=== PATIENT | female | born 1965 | race Caucasian/White ===

== ENCOUNTER 2024-01-20 14:10 | Outpatient (AMB) | payer MEDICARE, MEDICAID, SELFPAY ==
[2024-01-20 14:27] VITALS: BP 102/66; PULSE 83; RESP 19; TEMP 36.2
--- NOTE | 2024-01-20 14:27 | PD.RESCLINIC ---
Vital Signs 01/20/24 14:27 Weight 100.471 kg Weight Measurement Method Standing Scale BP 102/66 Blood Pressure Source Automatic Cuff Blood Pressure Location Left Upper Arm Position Sitting Respiration 19 Pulse 83 Pulse Source Monitor Temp 97.1 F Temp Source Oral Allergies/Meds Allergies & Medications Allergies No Known Allergies Allergy (Verified 01/20/24 14:28) Medication Reconciliation clotrimazole 1 % topical cream 1 applic topical BID #30 grams 11/27/23 [Rx Confirmed 01/20/24] fluconazole 200 mg tablet (Diflucan) 200 mg PO Q72H #3 tabs 11/27/23 [Rx Confirmed 01/20/24] hydrocodone 5 mg-acetaminophen 325 mg tablet 1 tab PO TID PRN pain #40 tabs 11/27/23 [Rx Confirmed 01/20/24] fluconazole 150 mg tablet 150 mg PO QDAY #2 tabs 01/20/24 [Rx] phentermine 7.5 mg-topiramate ER 46 mg capsule,ext.release 24hr mphase 1 cap PO QDAY weight loss 1 month #30 caps 01/20/24 [Rx] pregabalin 50 mg capsule 50 mg PO TID 1 month #90 caps 01/20/24 [Rx] MA Intake Visit Data Collection New Patient or Established: Established Patient (seen at [facility] within 3 years) Seen by Clinical Staff ONLY (RN/MA): No Pain Present Currently: Yes Pain Location: Generalized Pain scale:: 8 Pain Scale Used: Dunn-Aguilar/Numerical PCP or OBGYN visit in last 3 months: Yes Do You Feel Safe at Home: Yes Authorities Contacted: N/A Smoking Status Smoking Status: Never smoker Immunization / Flu Flu Vaccine in the Last 12 Months: Yes Flu Vaccine Exclusion Criteria: Already Received Past Medical History Past Medical History CARDIAC: Positive Hypercholesterolemia and Hypertension; Negative Congestive Heart Failure RESPIRATORY: Negative Chronic Obstructive Pulmonary Disease (COPD) GASTROINTESTINAL: Positive Gastroesophageal Reflux Disease GENITOURINARY: Negative Renal Disease ENDOCRINE: Positive Endocrine Disorders and Diabetes Mellitus Type 2; Negative Diabetes Mellitus Type 1 PSYCHO/SOCIAL: Positive Psychiatric Problems, Bipolar Disorder, Attention Deficit Hyperactivity Disorder and Post Traumatic Stress Disorder Surgical History SURGICAL: Positive Abdominal Surgery Social History SMOKING STATUS: Smoking status: Never smoker ALCOHOL: Alcohol Intake: Never Patient Portal Questionaires Social History Tobacco History Smoking Status: Never smoker Alcohol History Alcohol Intake: Never Domestic Abuse History Do You Feel Safe at Home: Yes Review of Systems Report any current symptoms Only answer those that you have currently: Past Medical History Past Medical History Have you ever been diagnosed with any of the following: Cardiology Problems Hypercholesterolemia: Yes Congestive Heart Failure: No Hypertension: Yes Respiratory Problems Chronic Obstructive Pulmonary Disease (COPD): No Stomache/Intestinal Problems Gastroesophageal Reflux Disease: Yes Genital/Urinary Problems Renal Disease: No Endocrine Problems Diabetes Mellitus Type 1: No Diabetes Mellitus Type 2: Yes Psychologic Problems Bipolar Disorder: Yes Attention Deficit Hyperactivity Disorder: Yes Post Traumatic Stress Disorder: Yes History of Present Illness HPI Narrative Interval History: Patient is a 57 year old female with a medical history of primary hypertension, 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 Follow up visit 01/20/2024 Today patient complains of cottage cheese discharge from her vagina as well as pruritus. Will give 1 dose of fluconazole and another dose in 1 week. She also complains of generalized pain as well as back pain resistant to opioid medication. Will start trial of pregabalin Patient complains of not being able to lose weight and thinks she may have OCD manage she has an oral fixation of having to always put something in her mouth. She asked for referral to bariatric surgery as well as a medication to help her lose weight. Will start her on phentermine?topimarate Assessment & Plan Diagnosis / Problem List (1) Vaginal yeast infection: Status: Chronic Assessment & Plan: Patient complains of pruritic rash in bilateral inguinal and vaginal areas. States has had diagnosis of yeast infection before that resolved with treatment. Also complains of foul odor. Still complains of cottage cheese discharge and pruritis in her vaginal area Plan: Plan: - 1 dose of Fluconazole 150mg po daily x 1 - Another dose in 1 week if symptoms persist (2) Lumbar back pain with radiculopathy affecting lower extremity: Status: Acute Assessment & Plan: She also complains of back pain as well as back pain resistant to opioid medication. Will start trial of pregabalin Plan: Plan : - Pregabalin 50 mg po TID - Will reassess in 1 month (3) Obesity (BMI 30-39.9): Status: Acute Assessment & Plan: Patient complains of not being able to lose weight and thinks she may have OCD manage she has an oral fixation of having to always put something in her mouth. She asked for referral to bariatric surgery as well as a medication to help her lose weight. Will start her on phentermine?topimarate Plan: Plan : - Will order trial of Phentermine-topimarate 7.5-46 mg ER . 1 cap po Qday Plan Plan of care discussed with Attending Dr. Barbie Gaxiola MD PGY 1 Additional Assessment Attending note: I, West Valentin MD, attest that I was physically present for the kim portions of the service and evaluated the patient with the resident and I reviewed and discussed the case with the resident and agree with the resident's findings and plans of care as documented above. Follow-up visit. Not seen in person in clinic for some time. Complaining of symptoms consistent with Rola vaginitis as well as intertrigo. We will treat with oral Diflucan and topical antifungal. Complaint of radicular back pain, has noted for some time. As there may be an element of diabetic neuropathy with this, we will trial pregabalin to see if benefit. Note made of weight gain of approximately 20+ pounds in the past year. BMI greater than 30. Patient requesting medication for weight loss. We will trial phentermine topiramate, but may be a good candidate for GLP-1 if can get it authorized, as she has previously had hemoglobin A1c of 7.0. Previously had markedly elevated triglycerides. Needs recheck of lipid panel at next visit. Note made of emergency room visits in October with transfer for psychiatric facility placement at that time. West Valentin MD Physician Billing Established Patient Established Patient: E/M Level 3-CPT 85131 Office Procedures [facility] Level of Care Nursing/Assessment Patient Status: Established Patient Nursing Assessment/Reassessment: Medication Reconciliation, Update PMH in EMR and Vital Signs Coordination of Care: Complex Care and Chronic Disease 1-5, Education Complex Pt/Fam and Staff clarify orders Established Patient Charge Established Patient Point Assignment: 85 Established Patient Point Charge: EP Level 3 (80-115)
== END 2024-01-20 15:01 | disposition home or self-care (01) ==
LOC: HODAHC 14:10
PROVIDERS: Supervising Provider Internal Medicine
DX: B37.31 Acute candidiasis of vulva and vagina (principal); M54.16 Radiculopathy, lumbar region; E66.9 Obesity, unspecified
CPT/HCPCS: 99213; G0463

== ENCOUNTER 2024-02-17 09:35 | Outpatient (AMB) | payer MEDICARE, MEDICAID, SELFPAY ==
--- NOTE | 2024-02-17 10:08 | PD.RESCLINIC ---
Vital Signs 02/17/24 10:09 Height 1.68 m Height Method Stated Weight 100.811 kg Weight Measurement Method Standing Scale BMI 35.9 BP 103/70 Blood Pressure Source Automatic Cuff Blood Pressure Location Left Upper Arm Position Sitting Respiration 18 Pulse 76 Pulse Source Monitor Temp 97.5 F Temp Source Oral Pulse Oximetry (%) 93 L Oxygen Delivery Method Room Air Allergies/Meds Allergies & Medications Allergies No Known Allergies Allergy (Verified 02/17/24 10:25) Medication Reconciliation bupropion HCl 150 mg tablet,12 hr sustained-release 150 mg PO QAM 02/17/24 [History Confirmed 02/17/24] citalopram 40 mg tablet 40 mg PO QDAY 02/17/24 [History Confirmed 02/17/24] clonazepam 2 mg tablet 2 mg PO QDAY 02/17/24 [History Confirmed 02/17/24] empagliflozin 25 mg tablet (Jardiance) 25 mg PO QDAY 02/17/24 [History Confirmed 02/17/24] ezetimibe 10 mg tablet 10 mg PO QDAY 02/17/24 [History Confirmed 02/17/24] fluconazole 150 mg tablet 150 mg PO QDAY #2 tabs 02/17/24 [Rx] gabapentin 800 mg tablet 800 mg PO TID #90 tabs 02/17/24 [Rx] hydrocodone 5 mg-acetaminophen 325 mg tablet 1 tab PO BID PRN pain #60 tabs 02/17/24 [Rx] czlaga-[id number]-vwqmftx 24,000-76,000-120,000 unit capsule,delayed rel (Creon) 1 cap PO TID 02/17/24 [History Confirmed 02/17/24] lisinopril 5 mg tablet 5 mg PO QDAY 02/17/24 [History Confirmed 02/17/24] metformin 1,000 mg tablet 1,000 mg PO BID 02/17/24 [History Confirmed 02/17/24] nystatin 100,000 unit/gram topical cream 1 applic topical QDAY #30 grams 02/17/24 [Rx] olanzapine 20 mg tablet 20 mg PO QPM 02/17/24 [History Confirmed 02/17/24] olanzapine 5 mg tablet 5 mg PO QHS 02/17/24 [History Confirmed 02/17/24] omeprazole 40 mg capsule,delayed release 40 mg PO QDAY 02/17/24 [History Confirmed 02/17/24] pantoprazole 40 mg granules delayed-release for susp in packet 40 mg PO QDAY 02/17/24 [History Confirmed 02/17/24] MA Intake Visit Data Collection New Patient or Established: Established Patient (seen at [facility] within 3 years) Seen by Clinical Staff ONLY (RN/MICHAEL): No Pain Present Currently: No Pain scale:: 0 Pain Scale Used: Dunn-Aguilar/Numerical Mortgage Loan Reviewer Required: No PCP or OBGYN visit in last 3 months: Yes Hx Now: No Do You Feel Safe at Home: Yes Authorities Contacted: N/A Smoking Status Smoking Status: Never smoker Immunization / Flu Flu Vaccine in the Last 12 Months: No Flu Vaccine Exclusion Criteria: No Exclusion Criteria Past Medical History Past Medical History CARDIAC: Positive Hypercholesterolemia and Hypertension; Negative Congestive Heart Failure RESPIRATORY: Negative Chronic Obstructive Pulmonary Disease (COPD) GASTROINTESTINAL: Positive Gastroesophageal Reflux Disease GENITOURINARY: Negative Renal Disease ENDOCRINE: Positive Endocrine Disorders and Diabetes Mellitus Type 2; Negative Diabetes Mellitus Type 1 PSYCHO/SOCIAL: Positive Psychiatric Problems, Bipolar Disorder, Attention Deficit Hyperactivity Disorder and Post Traumatic Stress Disorder Surgical History SURGICAL: Positive Abdominal Surgery Social History SMOKING STATUS: Smoking status: Never smoker ALCOHOL: Alcohol Intake: Never Patient Portal Questionaires Social History Tobacco History Smoking Status: Never smoker Alcohol History Alcohol Intake: Never Domestic Abuse History Do You Feel Safe at Home: Yes Review of Systems Report any current symptoms Only answer those that you have currently: Past Medical History Past Medical History Have you ever been diagnosed with any of the following: Cardiology Problems Hypercholesterolemia: Yes Congestive Heart Failure: No Hypertension: Yes Respiratory Problems Chronic Obstructive Pulmonary Disease (COPD): No Stomache/Intestinal Problems Gastroesophageal Reflux Disease: Yes Genital/Urinary Problems Renal Disease: No Endocrine Problems Diabetes Mellitus Type 1: No Diabetes Mellitus Type 2: Yes Psychologic Problems Bipolar Disorder: Yes Attention Deficit Hyperactivity Disorder: Yes Post Traumatic Stress Disorder: Yes History of Present Illness HPI Narrative Interval History: Patient is a 57 year old female with a medical history of primary hypertension, 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 02/17/24: Patient seen and examined in outpatient clinic, along with her daughter. Patient complains of recurrent fungal rash, diflucan and nystatin cream ordered. Refill for Gabapentin ordered. Patient stated that her pain was not well-controlled with 800mg TID, added PRN [place] for severe pain. Patient requested phentermine for weight loss. However, due to severe side effects and patients medical history, this was not deemed appropriate. This was thoroughly discussed with patient. Patient taking Ozempic prescribed by american sign language interpreter, currently on 1mg weekly. Advised patient to follow up with american sign language interpreter, will reassess weight issues after ozempic increased. Ordered lipid panel, thyroid, CBC, CMP, and A1c, encouraged patient to complete before next visit. Review of Systems Review of Systems Systems Reviewed: All systems reviewed, normal except as documented Objective/Exam Narrative Physical exam: PE: Gen: Well-developed and well-nourished. Obese. HEENT: NCAT, PERRLA, EOMI, MMM, anicteric conjunctivae. CVS: normal S1 and S2. RRR. No M/R/G. Resp: CTA B/L. No rhonchi, rales, crackles or wheezing. Abd: soft, non-tender, non-distended. BS+ in all 4 quadrants. MSK: Good ROM in BUE & BLE. No edema or rash. Neuro: CN II-XII grossly intact. Strength 5/5 in BUE & BLE. Alert and oriented x3. Psych: appropriate mood and affect. Assessment & Plan Diagnosis / Problem List (1) Diabetes mellitus with neuropathy: Status: Chronic Qualifiers: Diabetes mellitus chcf insulin use: unspecified chcf insulin use status Diabetes mellitus type: type 2 Qualified Code(s): E11.40 - Type 2 diabetes mellitus with diabetic neuropathy, unspecified Assessment & Plan: Present for decades per patient, well controlled Previously on long acting insulin 22U QD & Novolin-N 8-9U TID Complicated by peripheral neuropathy and nephropathy 10/16/22 A1C 7.0% 04/02/23 A1C 7.8% Currently taking Ozempic prescribed by american sign language interpreter. 1mg weekly. Plan: Diabetic diet Encouraged to keep BS log and bring to next visit Obtain A1c labs prior to next visit Follow up with american sign language interpreter. (2) Vaginal yeast infection: Status: Chronic Assessment & Plan: Patient complains of pruritic rash in bilateral inguinal and vaginal areas. States has had diagnosis of yeast infection before that resolved with treatment. Also complains of foul odor. Still complains of cottage cheese discharge and pruritis in her vaginal area. Says it resolved after last visit but recurred. Plan: Plan: - 1 dose of Fluconazole 150mg po daily x 1 - Another dose in 1 week if symptoms persist -Nystatin cream (3) Lumbar back pain with radiculopathy affecting lower extremity: Status: Acute Assessment & Plan: She also complains of back pain resistent to treatment. Currently taking Gabapentin, pain not well controlled. Plan: Gabapentin 800mg TID. [place] 5 BID PRN no more than two pill per day for breakthrough pain. (4) Obesity (BMI 30-39.9): Status: Acute Assessment & Plan: Patient complains of not being able to lose weight and thinks she may have OCD manage she has an oral fixation of having to always put something in her mouth. Qsymia did not provide any improvement. Currently on Ozempic 1mg weekly. Plan: Encourage patient to follow up with american sign language interpreter for management of ozempic. Office Procedures [facility] Level of Care Nursing/Assessment Patient Status: Established Patient Nursing Assessment/Reassessment: Medication Reconciliation, Update PMH in EMR and Vital Signs Coordination of Care: Complex Care/Chronic Disease 5 or more, Education Complex Pt/Fam, Consent,records obtained, informed consent, Lab and Imaging orders, Ref for ancillary service and Staff clarify orders Established Patient Charge Established Patient Point Assignment: 135 Established Patient Point Charge: Level 4 (120-155)
[2024-02-17 10:09] VITALS: BP 103/70; PULSE 76; RESP 18; TEMP 36.4; O2SAT 93; BMI 35.9
== END 2024-02-17 11:41 | disposition home or self-care (01) ==
LOC: HODAHC 09:35
PROVIDERS: Supervising Provider Internal Medicine; Visit Provider Internal Medicine
DX: E11.40 Type 2 diabetes mellitus with diabetic neuropathy, unspecified (principal); B37.31 Acute candidiasis of vulva and vagina; M54.16 Radiculopathy, lumbar region; E66.9 Obesity, unspecified; Z68.35 Body mass index [BMI] 35.0-35.9, adult; Z79.4 Long term (current) use of insulin; Z79.85 Long-term (current) use of injectable non-insulin antidiabetic drugs
CPT/HCPCS: 99214; G0463

== ENCOUNTER 2024-02-24 10:25 | Outpatient (AMB) | payer MEDICARE, MEDICAID, SELFPAY ==
[2024-02-24 10:27] VITALS: BP 117/78; PULSE 78; RESP 18; TEMP 36.6; O2SAT 91; BMI 35.8
--- NOTE | 2024-02-24 10:27 | PD.RESCLINIC ---
Vital Signs 02/24/24 10:27 Height 1.68 m Height Method Stated Weight 101.151 kg Weight Measurement Method Standing Scale BMI 35.8 BP 117/78 Blood Pressure Source Automatic Cuff Blood Pressure Location Left Upper Arm Position Sitting Respiration 18 Pulse 78 Pulse Source Monitor Temp 97.8 F Temp Source Oral Pulse Oximetry (%) 91 L Oxygen Delivery Method Room Air Allergies/Meds Allergies & Medications Allergies No Known Allergies Allergy (Verified 02/24/24 10:50) Medication Reconciliation bupropion HCl 150 mg tablet,12 hr sustained-release 150 mg PO QAM 02/17/24 [History Confirmed 02/24/24] citalopram 40 mg tablet 40 mg PO QDAY 02/17/24 [History Confirmed 02/24/24] empagliflozin 25 mg tablet (Jardiance) 25 mg PO QDAY 02/17/24 [History Confirmed 02/24/24] ezetimibe 10 mg tablet 10 mg PO QDAY 02/17/24 [History Confirmed 02/24/24] fluconazole 150 mg tablet 150 mg PO QDAY #2 tabs 02/17/24 [Rx Confirmed 02/24/24] hydrocodone 5 mg-acetaminophen 325 mg tablet 1 tab PO BID PRN pain #60 tabs 02/17/24 [Rx Confirmed 02/24/24] vfrukc-vkvtwcpx-hxuclfw 24,000-76,000-120,000 unit capsule,delayed rel (Creon) 1 cap PO TID 02/17/24 [History Confirmed 02/24/24] lisinopril 5 mg tablet 5 mg PO QDAY 02/17/24 [History Confirmed 02/24/24] metformin 1,000 mg tablet 1,000 mg PO BID 02/17/24 [History Confirmed 02/24/24] nystatin 100,000 unit/gram topical cream 1 applic topical QDAY #30 grams 02/17/24 [Rx Confirmed 02/24/24] olanzapine 20 mg tablet 20 mg PO QPM 02/17/24 [History Confirmed 02/24/24] olanzapine 5 mg tablet 5 mg PO QHS 02/17/24 [History Confirmed 02/24/24] omeprazole 40 mg capsule,delayed release 40 mg PO QDAY 02/17/24 [History Confirmed 02/24/24] pantoprazole 40 mg granules delayed-release for susp in packet 40 mg PO QDAY 02/17/24 [History Confirmed 02/24/24] clonazepam 2 mg tablet 2 mg PO QDAY 1 month #30 tabs 02/24/24 [Rx] gabapentin 800 mg tablet 1,600 mg (2 x 800 mg) PO BID #90 tabs 02/24/24 [Rx] MICHAEL Intake Visit Data Collection New Patient or Established: Established Patient (seen at [facility] within 3 years) Seen by Clinical Staff ONLY (RN/MA): No Pain Present Currently: No Pain scale:: 0 Pain Scale Used: Dunn-Aguilar/Numerical Title Lawyer Required: No PCP or OBGYN visit in last 3 months: Yes Hx Now: No Do You Feel Safe at Home: Yes Authorities Contacted: N/A Smoking Status Smoking Status: Never smoker Immunization / Flu Flu Vaccine in the Last 12 Months: No Flu Vaccine Exclusion Criteria: No Exclusion Criteria Past Medical History Past Medical History CARDIAC: Positive Hypercholesterolemia and Hypertension; Negative Congestive Heart Failure RESPIRATORY: Negative Chronic Obstructive Pulmonary Disease (COPD) GASTROINTESTINAL: Positive Gastroesophageal Reflux Disease GENITOURINARY: Negative Renal Disease ENDOCRINE: Positive Endocrine Disorders and Diabetes Mellitus Type 2; Negative Diabetes Mellitus Type 1 PSYCHO/SOCIAL: Positive Psychiatric Problems, Bipolar Disorder, Attention Deficit Hyperactivity Disorder and Post Traumatic Stress Disorder Surgical History SURGICAL: Positive Abdominal Surgery Social History SMOKING STATUS: Smoking status: Never smoker ALCOHOL: Alcohol Intake: Never Patient Portal Questionaires Social History Tobacco History Smoking Status: Never smoker Alcohol History Alcohol Intake: Never Domestic Abuse History Do You Feel Safe at Home: Yes Review of Systems Report any current symptoms Only answer those that you have currently: Past Medical History Past Medical History Have you ever been diagnosed with any of the following: Cardiology Problems Hypercholesterolemia: Yes Congestive Heart Failure: No Hypertension: Yes Respiratory Problems Chronic Obstructive Pulmonary Disease (COPD): No Stomache/Intestinal Problems Gastroesophageal Reflux Disease: Yes Genital/Urinary Problems Renal Disease: No Endocrine Problems Diabetes Mellitus Type 1: No Diabetes Mellitus Type 2: Yes Psychologic Problems Bipolar Disorder: Yes Attention Deficit Hyperactivity Disorder: Yes Post Traumatic Stress Disorder: Yes History of Present Illness HPI Narrative Interval History: Patient is a 57 year old female with a medical history of primary hypertension, 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 02/24/2024: Patient seen and examined in outpatient clinic, along with and daughter. Patient requesting refill on gabapentin, clonazepam. No other specific complaints at this time. Refilled patient's gabapentin. Refill clonazepam for 1 month, informed patient that she needs to contact [facility] mental health services for psych eval and to establish care for future prescriptions. Review of Systems Review of Systems Systems Reviewed: All systems reviewed, normal except as documented Objective/Exam Narrative Physical exam: PE: Gen: Well-developed and well-nourished. Obese. HEENT: NCAT, PERRLA, EOMI, MMM, anicteric conjunctivae. CVS: normal S1 and S2. RRR. No M/R/G. Resp: CTA B/L. No rhonchi, rales, crackles or wheezing. Abd: soft, non-tender, non-distended. BS+ in all 4 quadrants. MSK: Good ROM in BUE & BLE. No edema or rash. Neuro: CN II-XII grossly intact. Strength 5/5 in BUE & BLE. Alert and oriented x3. Psych: appropriate mood and affect. Assessment & Plan Diagnosis / Problem List (1) Diabetes mellitus with neuropathy: Status: Chronic Qualifiers: Diabetes mellitus type: type 2 Diabetes mellitus intermediate insulin use: unspecified long term care phlebotomist insulin use status Qualified Code(s): E11.40 - Type 2 diabetes mellitus with diabetic neuropathy, unspecified Assessment & Plan: Present for decades per patient, well controlled Previously on long acting insulin 22U QD & Novolin-N 8-9U TID Complicated by peripheral neuropathy and nephropathy 10/16/22 A1C 7.0% 04/02/23 A1C 7.8% Currently taking Ozempic prescribed by environmental marketing representative. 1mg weekly. Plan: Diabetic diet Encouraged to keep BS log and bring to next visit Obtain A1c labs prior to next visit Follow up with environmental marketing representative. (2) Anxiety: Status: Acute Assessment & Plan: Patient has history of anxiety, takes outpatient clonazepam 2 mg at bedtime. Reporting low medications. Has not reestablished care with psychiatrist since returning to this area. Plan: Refilled patient's clonazepam for 1 month only. Have patient follow-up with [facility] mental services for further care. (3) Lumbar back pain with radiculopathy affecting lower extremity: Status: Acute Assessment & Plan: She also complains of back pain resistant to treatment. Currently taking Gabapentin, states pain is somewhat well-controlled with 2 pills. Plan: Gabapentin 800mg, 2 pills twice daily. [place] 5 BID PRN no more than two pill per day for breakthrough pain. (4) Obesity (BMI 30-39.9): Status: Acute Assessment & Plan: Patient complains of not being able to lose weight and thinks she may have OCD manage she has an oral fixation of having to always put something in her mouth. Qsymia did not provide any improvement. Currently on Ozempic 1mg weekly. Plan: Encourage patient to follow up with environmental marketing representative for management of ozempic. Discontinue Qsymia. Office Procedures [facility] Level of Care Nursing/Assessment Patient Status: Established Patient Nursing Assessment/Reassessment: Medication Reconciliation, Update PMH in EMR and Vital Signs Coordination of Care: Complex Care/Chronic Disease 5 or more, Education Complex Pt/Fam, Consent,records obtained, informed consent, Ref for ancillary service and Staff clarify orders Established Patient Charge Established Patient Point Assignment: 120 Established Patient Point Charge: EP Level 4 (120-155)
== END 2024-02-24 11:30 | disposition home or self-care (01) ==
LOC: HODAHC 10:25
PROVIDERS: Supervising Provider Internal Medicine
DX: Z76.0 Encounter for issue of repeat prescription (principal); E11.42 Type 2 diabetes mellitus with diabetic polyneuropathy; Z79.4 Long term (current) use of insulin; F41.9 Anxiety disorder, unspecified; M54.16 Radiculopathy, lumbar region; E66.9 Obesity, unspecified; Z68.35 Body mass index [BMI] 35.0-35.9, adult
CPT/HCPCS: 99213; 99214; G0463

== ENCOUNTER 2024-04-02 13:31 | Outpatient (AMB) | payer MEDICARE, MEDICAID, SELFPAY ==
--- NOTE | 2024-04-02 13:59 | PD.RESCLINIC ---
Vital Signs 04/02/24 14:00 Height 1.68 m Height Method Stated Weight 103.192 kg Weight Measurement Method Standing Scale BMI 36.6 BP 111/75 Blood Pressure Source Automatic Cuff Blood Pressure Location Left Upper Arm Position Sitting Respiration 16 Pulse 83 Pulse Source Monitor Temp 97.5 F Temp Source Oral Pulse Oximetry (%) 96 Oxygen Delivery Method Room Air Allergies/Meds Allergies & Medications Allergies No Known Allergies Allergy (Verified 04/09/24 08:37) Medication Reconciliation bupropion HCl 150 mg tablet,12 hr sustained-release 150 mg PO QAM 02/17/24 [History Confirmed 04/09/24] citalopram 40 mg tablet 40 mg PO QDAY 02/17/24 [History Confirmed 04/09/24] empagliflozin 25 mg tablet (Jardiance) 25 mg PO QDAY 02/17/24 [History Confirmed 04/09/24] ezetimibe 10 mg tablet 10 mg PO QDAY 02/17/24 [History Confirmed 04/09/24] fluconazole 150 mg tablet 150 mg PO QDAY #2 tabs 02/17/24 [Rx Confirmed 04/09/24] hydrocodone 5 mg-acetaminophen 325 mg tablet 1 tab PO BID PRN pain #60 tabs 02/17/24 [Rx Confirmed 04/09/24] dxhfak-cigftjxi-qqbzglh 24,000-76,000-120,000 unit capsule,delayed rel (Creon) 1 cap PO TID 02/17/24 [History Confirmed 04/09/24] lisinopril 5 mg tablet 5 mg PO QDAY 02/17/24 [History Confirmed 04/09/24] metformin 1,000 mg tablet 1,000 mg PO BID 02/17/24 [History Confirmed 04/09/24] nystatin 100,000 unit/gram topical cream 1 applic topical QDAY #30 grams 02/17/24 [Rx Confirmed 04/09/24] olanzapine 20 mg tablet 20 mg PO QPM 02/17/24 [History Confirmed 04/09/24] olanzapine 5 mg tablet 5 mg PO QHS 02/17/24 [History Confirmed 04/09/24] omeprazole 40 mg capsule,delayed release 40 mg PO QDAY 02/17/24 [History Confirmed 04/09/24] pantoprazole 40 mg granules delayed-release for susp in packet 40 mg PO QDAY 02/17/24 [History Confirmed 04/09/24] gabapentin 800 mg tablet 1,600 mg (2 x 800 mg) PO BID #90 tabs 02/24/24 [Rx Confirmed 04/09/24] clonazepam 2 mg tablet 2 mg PO QDAY 1 month #30 tabs 04/02/24 [Rx Confirmed 04/09/24] Novolin N FlexPen 100 unit/mL (3 mL) subcutaneous insulin pen (insulin NPH isoph U-100 human) 32 unit (0.32 mL) subcut QID #45 mL 04/08/24 [Rx Confirmed 04/09/24] fluconazole 150 mg tablet 150 mg PO QDAY #2 tabs 04/08/24 [Rx Confirmed 04/09/24] nystatin 100,000 unit/gram topical ointment 1 applic topical QDAY 15 days #30 grams 04/08/24 [Rx Confirmed 04/09/24] semaglutide 2 mg/dose (8 mg/3 mL) subcutaneous pen injector (Ozempic) 2 mg (0.75 mL) subcut QWEEK #3 mL 04/08/24 [Rx Confirmed 04/09/24] MA Intake Visit Data Collection New Patient or Established: Established Patient (seen at [facility] within 3 years) Seen by Clinical Staff ONLY (RN/MA): No Pain Present Currently: No Pain scale:: 0 Pain Scale Used: Dunn-Aguilar/Numerical Batch Roller Operator Required: No PCP or OBGYN visit in last 3 months: Yes Hx Now: No Do You Feel Safe at Home: Yes Authorities Contacted: N/A Smoking Status Smoking Status: Never smoker Immunization / Flu Flu Vaccine in the Last 12 Months: No Flu Vaccine Exclusion Criteria: No Exclusion Criteria Past Medical History Past Medical History CARDIAC: Positive Hypercholesterolemia and Hypertension; Negative Congestive Heart Failure RESPIRATORY: Negative Chronic Obstructive Pulmonary Disease (COPD) GASTROINTESTINAL: Positive Gastroesophageal Reflux Disease GENITOURINARY: Negative Renal Disease ENDOCRINE: Positive Endocrine Disorders and Diabetes Mellitus Type 2; Negative Diabetes Mellitus Type 1 PSYCHO/SOCIAL: Positive Psychiatric Problems, Bipolar Disorder, Attention Deficit Hyperactivity Disorder and Post Traumatic Stress Disorder Surgical History SURGICAL: Positive Abdominal Surgery Social History SMOKING STATUS: Smoking status: Never smoker ALCOHOL: Alcohol Intake: Never Patient Portal Questionaires Social History Tobacco History Smoking Status: Never smoker Alcohol History Alcohol Intake: Never Domestic Abuse History Do You Feel Safe at Home: Yes Review of Systems Report any current symptoms Only answer those that you have currently: Past Medical History Past Medical History Have you ever been diagnosed with any of the following: Cardiology Problems Hypercholesterolemia: Yes Congestive Heart Failure: No Hypertension: Yes Respiratory Problems Chronic Obstructive Pulmonary Disease (COPD): No Stomache/Intestinal Problems Gastroesophageal Reflux Disease: Yes Genital/Urinary Problems Renal Disease: No Endocrine Problems Diabetes Mellitus Type 1: No Diabetes Mellitus Type 2: Yes Psychologic Problems Bipolar Disorder: Yes Attention Deficit Hyperactivity Disorder: Yes Post Traumatic Stress Disorder: Yes History of Present Illness HPI Narrative 59 year old female with a past medical history of hypertension, 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 Patient refers this is a recurrent issue with her where she gets cadidiasis under panus and in her groin, it responds well to nistatin ointment, she has also been experiencing some whitish vaginal discarge and pruritus. Patient also would like clonazepam refill, that she takes for anxiety disorder with panic attacks. Objective/Exam Narrative Physical exam: GENERAL: Awake, alert and oriented. No acute distress. HEENT: Normocephalic, atraumatic and nontender.? Pupils are equal and reactive to light and accommodation.? NECK: Supple without adenopathy. Traquea midline. Nontender, carotid pulse 2+ bilaterally without bruits, no JVD.? CHEST: Heart rate and rythm normal, no murmurs, gallops auscultated. S1 & 2 normal insensity. Nontender on palpation, no deformity and no crepitus. LUNGS: Lung sounds are clear.? No wheezing, rales or ronchi.? No intercostal subcostal retraction. Room air ABDOMEN: Soft,symmetric , nontender, no guarding or rebound tenderness. No abnormal masses palpated.? No pulsatile masses or bruits.? Bowel sounds are normoactive in all 4 quadrants. EXTREMITIES: Nontender.? No pitting edema.? No cyanosis.? Patient is able to move all 4 extremities. SKIN: underpanus candidiasis, bilateral groin candidiasis. NEURO:? Cranial nerves intact.? There is no focalization.? GCS is 15. 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 Patient refers this is a recurrent issue with her where she gets cadidiasis under panus and in her groin, it responds well to nistatin ointment, she has also been experiencing some whitish vaginal discarge and pruritus. Patient also would like clonazepam refill, that she takes for anxiety disorder with panic attacks. #Vaginal yeast infection -Clotrimazole ovules #Under panus candidiasis -Nistatin ointment #Anxiety, PTSD, panic attacks -clonazepam refilled Patient's care discussed with attending physician, Dr Barbie Harrison MD PGY3 Additional Assessment Internal Medicine Attending Note: Case discussed with and agree with note and management plan of Resident Physician as per Resident's Note above. Issues of concern for present visit are as follows: Acute visit. Complaining of Rola intertrigo. Treat with nystatin. Patient also with symptoms of vaginitis, we will treat with clotrimazole. Usual clonazepam refilled, history of anxiety/PTSD/panic attacks. Previously following with psychiatrist, needs follow-up. [place] MD Physician Billing Established Patient Established Patient: E/M Level 3-CPT 81239 Office Procedures [facility] Level of Care Nursing/Assessment Patient Status: Established Patient Nursing Assessment/Reassessment: Medication Reconciliation, Update PMH in EMR and Vital Signs Coordination of Care: Complex Care and Chronic Disease 1-5, Consent,records obtained, informed consent, Education Simp Pt/Fam, Lab and Imaging orders and Staff clarify orders Established Patient Charge Established Patient Point Assignment: 100 Established Patient Point Charge: Level 3 (80-115)
[2024-04-02 14:00] VITALS: BP 111/75; PULSE 83; RESP 16; TEMP 36.4; O2SAT 96; BMI 36.6
== END 2024-04-02 14:46 | disposition home or self-care (01) ==
LOC: HODAHC 13:31
PROVIDERS: Supervising Provider Internal Medicine; Visit Provider Student in an Organized Health Care Education/Training Program
DX: B37.31 Acute candidiasis of vulva and vagina (principal); F41.0 Panic disorder [episodic paroxysmal anxiety]; E11.42 Type 2 diabetes mellitus with diabetic polyneuropathy; Z79.4 Long term (current) use of insulin; F43.10 Post-traumatic stress disorder, unspecified; F31.9 Bipolar disorder, unspecified
CPT/HCPCS: 99213; G0463

== ENCOUNTER 2024-04-08 10:09 | Outpatient (AMB) | payer MEDICARE, MEDICAID, SELFPAY ==
[2024-04-08 08:35] VITALS: BP 94/64; PULSE 82; RESP 16; TEMP 36.2; O2SAT 97; BMI 36.6
--- NOTE | 2024-04-08 10:34 | PD.RESCLINIC ---
Vital Signs 04/08/24 08:35 Height 1.68 m Height Method Stated Weight 103.192 kg Weight Measurement Method Standing Scale BMI 36.6 BP 94/64 Blood Pressure Source Automatic Cuff Blood Pressure Location Left Upper Arm Position Sitting Respiration 16 Pulse 82 Pulse Source Monitor Temp 97.2 F Temp Source Temporal Artery Scan Pulse Oximetry (%) 97 Oxygen Delivery Method Room Air Allergies/Meds Allergies & Medications Allergies No Known Allergies Allergy (Verified 04/09/24 08:37) Medication Reconciliation bupropion HCl 150 mg tablet,12 hr sustained-release 150 mg PO QAM 02/17/24 [History Confirmed 04/09/24] citalopram 40 mg tablet 40 mg PO QDAY 02/17/24 [History Confirmed 04/09/24] empagliflozin 25 mg tablet (Jardiance) 25 mg PO QDAY 02/17/24 [History Confirmed 04/09/24] ezetimibe 10 mg tablet 10 mg PO QDAY 02/17/24 [History Confirmed 04/09/24] fluconazole 150 mg tablet 150 mg PO QDAY #2 tabs 02/17/24 [Rx Confirmed 04/09/24] hydrocodone 5 mg-acetaminophen 325 mg tablet 1 tab PO BID PRN pain #60 tabs 02/17/24 [Rx Confirmed 04/09/24] toumdw-hsezuptz-esfuhtn 24,000-76,000-120,000 unit capsule,delayed rel (Creon) 1 cap PO TID 02/17/24 [History Confirmed 04/09/24] lisinopril 5 mg tablet 5 mg PO QDAY 02/17/24 [History Confirmed 04/09/24] metformin 1,000 mg tablet 1,000 mg PO BID 02/17/24 [History Confirmed 04/09/24] nystatin 100,000 unit/gram topical cream 1 applic topical QDAY #30 grams 02/17/24 [Rx Confirmed 04/09/24] olanzapine 20 mg tablet 20 mg PO QPM 02/17/24 [History Confirmed 04/09/24] olanzapine 5 mg tablet 5 mg PO QHS 02/17/24 [History Confirmed 04/09/24] omeprazole 40 mg capsule,delayed release 40 mg PO QDAY 02/17/24 [History Confirmed 04/09/24] pantoprazole 40 mg granules delayed-release for susp in packet 40 mg PO QDAY 02/17/24 [History Confirmed 04/09/24] gabapentin 800 mg tablet 1,600 mg (2 x 800 mg) PO BID #90 tabs 02/24/24 [Rx Confirmed 04/09/24] clonazepam 2 mg tablet 2 mg PO QDAY 1 month #30 tabs 04/02/24 [Rx Confirmed 04/09/24] Novolin N FlexPen 100 unit/mL (3 mL) subcutaneous insulin pen (insulin NPH isoph U-100 human) 32 unit (0.32 mL) subcut QID #45 mL 04/08/24 [Rx Confirmed 04/09/24] fluconazole 150 mg tablet 150 mg PO QDAY #2 tabs 04/08/24 [Rx Confirmed 04/09/24] nystatin 100,000 unit/gram topical ointment 1 applic topical QDAY 15 days #30 grams 04/08/24 [Rx Confirmed 04/09/24] semaglutide 2 mg/dose (8 mg/3 mL) subcutaneous pen injector (Ozempic) 2 mg (0.75 mL) subcut QWEEK #3 mL 04/08/24 [Rx Confirmed 04/09/24] MA Intake Visit Data Collection New Patient or Established: Established Patient (seen at [facility] within 3 years) Seen by Clinical Staff ONLY (RN/MA): No Pain Present Currently: No Pain scale:: 0 Pain Scale Used: Dunn-Aguilar/Numerical [employer] Wiring Technician Required: No PCP or OBGYN visit in last 3 months: Yes Hx Now: No Do You Feel Safe at Home: Yes Authorities Contacted: N/A Smoking Status Smoking Status: Never smoker Immunization / Flu Flu Vaccine in the Last 12 Months: No Flu Vaccine Exclusion Criteria: Refused by Patient Past Medical History Past Medical History CARDIAC: Positive Hypercholesterolemia and Hypertension; Negative Congestive Heart Failure RESPIRATORY: Negative Chronic Obstructive Pulmonary Disease (COPD) GASTROINTESTINAL: Positive Gastroesophageal Reflux Disease GENITOURINARY: Negative Renal Disease ENDOCRINE: Positive Endocrine Disorders and Diabetes Mellitus Type 2; Negative Diabetes Mellitus Type 1 PSYCHO/SOCIAL: Positive Psychiatric Problems, Bipolar Disorder, Attention Deficit Hyperactivity Disorder and Post Traumatic Stress Disorder Surgical History SURGICAL: Positive Abdominal Surgery Social History SMOKING STATUS: Smoking status: Never smoker ALCOHOL: Alcohol Intake: Never Patient Portal Questionaires Social History Tobacco History Smoking Status: Never smoker Alcohol History Alcohol Intake: Never Domestic Abuse History Do You Feel Safe at Home: Yes Review of Systems Report any current symptoms Only answer those that you have currently: Past Medical History Past Medical History Have you ever been diagnosed with any of the following: Cardiology Problems Hypercholesterolemia: Yes Congestive Heart Failure: No Hypertension: Yes Respiratory Problems Chronic Obstructive Pulmonary Disease (COPD): No Stomache/Intestinal Problems Gastroesophageal Reflux Disease: Yes Genital/Urinary Problems Renal Disease: No Endocrine Problems Diabetes Mellitus Type 1: No Diabetes Mellitus Type 2: Yes Psychologic Problems Bipolar Disorder: Yes Attention Deficit Hyperactivity Disorder: Yes Post Traumatic Stress Disorder: Yes History of Present Illness HPI Narrative Patient is a 59 year old female with a past medical history of hypertension, 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 04/08/2024: Patient has a complex medical history with several psychiatric medications on board. Patient takes Olanzapine 10 mg AM, 10 mg at noon, and 20 mg at bed time. Wellbutrin 150 mg tablet once a day. Citalopram 40 mg. Clonazepam 2 mg. Patient is establishing psychiatric care within [facility] after moving from [facility]. Patient is following up with refills for Novolin N/NPH 32 units TID and Ozemic 1 mg-->increased to 2 mg subq weekly. Patient continues to take Metformin 1,000 mg BID, and Tresibia 30 units in the morning. Despite this extensive list, patient continues to have fasting glucose of 240-250 in the morning prior to food. Patient follows an compliance administrator in [place], Dr. Allison. Denied hypoglycemic episodes. Denied increased perspiration or NO loss of consciousness. Positive for polydispyia. No recent baseline for fasting glucose or A1c. Ordering new labs. Patient stated inner thighs and folds under skin have rash that appears red. History of intertrigo. Complaining of vaginal discharge. No dysuria. mostly discharge. Concerning for candidaisis of vulva given past medical history or recurrent yeast infections. Patient also stated recent LEEP procedure for cervical cancer. 3 month follow up with OBGYN in [place]. Follow up labs. Review of Systems Review of Systems Narrative Review of Systems: General appearance: NO weight change, NO fatigue, NO weakness, NO fever, NO chills, NO night sweats, No cough Skin: NO rash, NO itching, NO sores, NO moles HEENT: NO Trauma, NO nausea, NO vomiting, NO visual changes, NO blurry vision, NO double vision, NO tinnitus, NO vertigo, NO ear discharge, NO rhinorrhea, NO stuffiness, NO sneezing, NO allergy, NO epistaxis. NO Hoarseness, NO sore throat, NO swollen neck. Cardiac: NO Palpitations, NO dyspnea on exertion, NO orthopnea, NO paroxysmal nocturnal dyspnea, NO edema Respiratory: NO Shortness of Breath, NO Wheezing, NO Cough, NO Sputum, NO hemoptysis GI:NO appetite, NO nausea, NO vomiting, NO dysphagia, NO changes in bowel frequency, NO stool color, NO diarrhea, NO constipation, NO hemetemesis, NO hemorrhoids, NO melena, NO hematechezia, NO abdominal pain, NO jaundice Renal: NO frequency, NO hesitancy, NO urgency, NO hematuria, NO nocturia, NO incontinence, yes discharge MSK: NO muscle weakness, NO gout, NO arthritis, NO muscle stiffness Neuro: NO headaches, NO tremors, NO weakness, NO paralysis, NO seizures, NO loss of consciousness, YES numbness. Hem: NO anemia, NO easy bruising/bleeding, NO petechiae, NO purpura Endo: NO heat/cold intolerance, NO excessive sweating, NO polyuria, NO polydipsia, NO polyphagia, NO thyroid problems, YES diabetes Pysch: NO mood, YES anxiety, YES depression Objective/Exam Narrative Physical exam: Vitals: T97.5, BP 111/75, HR 83, RR 16 General Appearance: Alert and Orientated x3, well-nourished female who is sitting in exam room in no acute distress. Thorax/Lungs: Symmetrical with good expansion. Chest and back non-tender. Lungs resonant to percussion. Breath sounds vesicular without crackles, wheezes, or rhonchi Cardiovascular/Peripheral Vascular: No jugular venous distention noted. S1 and S2 heart sounds regular, no murmurs or extra heart sounds auscultated. No peripheral edema noted. Abdomen: Bowel sounds are active. No tenderness to deep or light palpation. Assessment & Plan Diagnosis / Problem List (1) Diabetes mellitus: Status: Acute Qualifiers: Diabetes mellitus buttermaker insulin use: with longterm use Diabetes mellitus type: type 2 Assessment & Plan: Patient on Tresiba 30 units AM, Insulin NPH 32 units TID, Jardiance, Ozemic 1 mg/once a week. Despite numerous medications, patient still reports elevated fasting blood glucose levels at 240-250. Patient asserts taking medication as perscribed by Dr. Allison in [place] who is following case. follow up A1c. Plan: -CBC, CMP, A1c, Lipid, and vitamin D -consider c-peptide -consider endrocrinology referral given high insulin levels (2) Vaginal yeast infection: Status: Chronic Assessment & Plan: Denied dysuria. Yellow discharge, denied cottage cheese appearance. Denied yellow discharge being her baseline. Previous history of yeast infection. Given history of LEEP, this is concerning worsening for underlying cervical cancer. Repeat Pap smear w/ HPV after LEEP was negative. UTI can not be ruled out. Plan: -Fluconazole 150 mg -Urinalysis, ordered -Consider Chlamydia and Gonorrhea if no improvement (3) Erythema intertrigo: Status: Acute Assessment & Plan: Inner folds noted with erythema and moist. Denied pain or pruritus. Denied fowl smell. Denied discharge. Patient previously used nystatin ointment that has improved symptoms. Plan: Nystatin Oitment Additional Assessment Master Problem List Hypertension Diabetes Mellitus Type II Insulin Dependent Cervial Cancer s/p LEEP procedure Dyslipidemia GERD PTSD ADHD Anxiety Depresison Bipolar Follow Up: Labs: CMP, CBC, Lipid Panel, A1c, urinalysis, Vitamin D (ordered) Health Maintenance: Cervical Cancer-->s/p LEEP, following with OBGYN in 3 months Colorectal cancer screening, needed Breast cancer screening (40-74), needed Scores: Office Procedures [facility] Level of Care Nursing/Assessment Patient Status: Established Patient Nursing Assessment/Reassessment: Medication Reconciliation, Update PMH in EMR and Vital Signs Coordination of Care: Complex Care/Chronic Disease 5 or more, Consent,records obtained, informed consent, Education Simp Pt/Fam and Staff clarify orders Established Patient Charge Established Patient Point Assignment: 95 Established Patient Point Charge: EP Level 3 (80-115)
== END 2024-04-08 13:09 | disposition home or self-care (01) ==
LOC: HODAHC 10:09
PROVIDERS: Supervising Provider Internal Medicine; Visit Provider Student in an Organized Health Care Education/Training Program
DX: B37.31 Acute candidiasis of vulva and vagina (principal); E11.9 Type 2 diabetes mellitus without complications; L30.4 Erythema intertrigo; Z79.4 Long term (current) use of insulin; I10 Essential (primary) hypertension; E78.5 Hyperlipidemia, unspecified; K21.9 Gastro-esophageal reflux disease without esophagitis; F43.10 Post-traumatic stress disorder, unspecified; F90.9 Attention-deficit hyperactivity disorder, unspecified type; F41.9 Anxiety disorder, unspecified; F31.9 Bipolar disorder, unspecified; Z76.0 Encounter for issue of repeat prescription
CPT/HCPCS: 99213; G0463

== ENCOUNTER 2024-04-28 13:46 | Outpatient (AMB) | payer MEDICARE, MEDICAID, SELFPAY ==
[2024-04-28 13:56] VITALS: BP 103/74; PULSE 85; RESP 19; TEMP 36.8; O2SAT 92; BMI 37.7
--- NOTE | 2024-04-28 13:56 | ACNOTE_ITS ---
Vital Signs 04/28/24 13:56 Height 1.68 m Height Method Stated Weight 106.367 kg Weight Measurement Method Standing Scale BMI 37.7 BP 103/74 Blood Pressure Source Automatic Cuff Blood Pressure Location Left Upper Arm Position Sitting Respiration 19 Pulse 85 Pulse Source Monitor Temp 98.2 F Temp Source Temporal Artery Scan Pulse Oximetry (%) 92 L Oxygen Delivery Method Room Air Allergies/Meds Allergies & Medications Allergies No Known Allergies Allergy (Verified 04/28/24 13:57) Medication Reconciliation bupropion HCl 150 mg tablet,12 hr sustained-release 150 mg PO QAM 02/17/24 [Hist ory Confirmed 04/28/24] citalopram 40 mg tablet 40 mg PO QDAY 02/17/24 [History Confirmed 04/28/24] empagliflozin 25 mg tablet (Jardiance) 25 mg PO QDAY 02/17/24 [History Confirmed 04/28/24] ezetimibe 10 mg tablet 10 mg PO QDAY 02/17/24 [History Confirmed 04/28/24] fluconazole 150 mg tablet 150 mg PO QDAY #2 tabs 02/17/24 [Rx Confirmed 04/28/24] ffwsti-iubyylaw-ipffcie 24,000-76,000-120,000 unit capsule,delayed rel (Creon) 1 cap PO TID 02/17/24 [History Confirmed 04/28/24] lisinopril 5 mg tablet 5 mg PO QDAY 02/17/24 [History Confirmed 04/28/24] metformin 1,000 mg tablet 1,000 mg PO BID 02/17/24 [History Confirmed 04/28/24] nystatin 100,000 unit/gram topical cream 1 applic topical QDAY #30 grams 02/17/24 [Rx Confirmed 04/28/24] olanzapine 20 mg tablet 20 mg PO QPM 02/17/24 [History Confirmed 04/28/24] olanzapine 5 mg tablet 5 mg PO QHS 02/17/24 [History Confirmed 04/28/24] omeprazole 40 mg capsule,delayed release 40 mg PO QDAY 02/17/24 [History Confirmed 04/28/24] pantoprazole 40 mg granules delayed-release for susp in packet 40 mg PO QDAY 02/17/24 [History Confirmed 04/28/24] gabapentin 800 mg tablet 1,600 mg (2 x 800 mg) PO BID #90 tabs 02/24/24 [Rx Confirmed 04/28/24] clonazepam 2 mg tablet 2 mg PO QDAY 1 month #30 tabs 04/02/24 [Rx Confirmed 04/28/24] fluconazole 150 mg tablet 150 mg PO QDAY #2 tabs 04/08/24 [Rx Confirmed 04/28/24] nystatin 100,000 unit/gram topical ointment 1 applic topical QDAY 15 days #30 grams 04/08/24 [Rx Confirmed 04/28/24] blood-glucose meter #1 ea 04/28/24 [Rx] dicyclomine 10 mg capsule 10 mg PO BID PRN abdominal pain #30 caps 04/28/24 [Rx] hydrocodone 5 mg-acetaminophen 325 mg tablet 1 tab PO BID PRN pain #14 tabs 04/28/24 [Rx] insulin NPH isoph U-100 human 100 unit/mL (3 mL) subcutaneous pen (Novolin N FlexPen) 25 unit (0.25 mL) subcut QID #15 mL 04/28/24 [Rx] lancets 31 gauge #100 ea 04/28/24 [Rx] loperamide 2 mg capsule 2 mg PO Q6H PRN loose stool #30 caps 04/28/24 [Rx] pravastatin 10 mg tablet 10 mg PO QHS #60 tabs 04/28/24 [Rx] tirzepatide 2.5 mg/0.5 mL subcutaneous pen injector 2.5 mg (0.5 mL) subcut QWEEK #2 mL 04/28/24 [Rx] MA Intake Visit Data Collection New Patient or Established: Established Patient (seen at [facility] within 3 years) Seen by Clinical Staff ONLY (RN/MA): No Pain Present Currently: Yes (bodyaches) Pain scale:: 10 Pain Scale Used: Dunn-Aguilar/Numerical Hospital Nurse Required: No PCP or OBGYN visit in last 3 months: Yes Hx Now: No Do You Feel Safe at Home: Yes Authorities Contacted: N/A Smoking Status Smoking Status: Never smoker Immunization / Flu Flu Vaccine in the Last 12 Months: No Flu Vaccine Exclusion Criteria: No Exclusion Criteria Past Medical History Past Medical History CARDIAC: Positive Hypercholesterolemia and Hypertension; Negative Congestive Heart Failure RESPIRATORY: Negative Chronic Obstructive Pulmonary Disease (COPD) GASTROINTESTINAL: Positive Gastroesophageal Reflux Disease GENITOURINARY: Negative Renal Disease ENDOCRINE: Positive Endocrine Disorders and Diabetes Mellitus Type 2; Negative Diabetes Mellitus Type 1 PSYCHO/SOCIAL: Positive Psychiatric Problems, Bipolar Disorder, Attention Deficit Hyperactivity Disorder and Post Traumatic Stress Disorder Surgical History SURGICAL: Positive Abdominal Surgery Social History SMOKING STATUS: Smoking status: Never smoker ALCOHOL: Alcohol Intake: Never Patient Portal Questionaires Social History Tobacco History Smoking Status: Never smoker Alcohol History Alcohol Intake: Never Domestic Abuse History Do You Feel Safe at Home: Yes Review of Systems Report any current symptoms Only answer those that you have currently: Past Medical History Past Medical History Have you ever been diagnosed with any of the following: Cardiology Problems Hypercholesterolemia: Yes Congestive Heart Failure: No Hypertension: Yes Respiratory Problems Chronic Obstructive Pulmonary Disease (COPD): No Stomache/Intestinal Problems Gastroesophageal Reflux Disease: Yes Genital/Urinary Problems Renal Disease: No Endocrine Problems Diabetes Mellitus Type 1: No Diabetes Mellitus Type 2: Yes Psychologic Problems Bipolar Disorder: Yes Attention Deficit Hyperactivity Disorder: Yes Post Traumatic Stress Disorder: Yes History of Present Illness HPI Narrative Patient is a 59 year old female with a past medical history of hypertension, 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 04/08/2024: Patient has a complex medical history with several psychiatric medications on board. Patient takes Olanzapine 10 mg AM, 10 mg at noon, and 20 mg at bed time. Wellbutrin 150 mg tablet once a day. Citalopram 40 mg. Clonazepam 2 mg. Patient is establishing psychiatric care within [facility] after moving from [facility]. Patient is following up with refills for Novolin N/NPH 32 units TID and Ozemic 1 mg-->increased to 2 mg subq weekly. Patient continues to take Metformin 1,000 mg BID, and Tresibia 30 units in the morning. Despite this extensive list, patient continues to have fasting glucose of 240- 250 in the morning prior to food. Patient follows an professor of political science in [place], Dr. Allison. Denied hypoglycemic episodes. Denied increased perspiration or NO loss of consciousness. Positive for polydispyia. No recent baseline for fasting glucose or A1c. Ordering new labs. Patient stated inner thighs and folds under skin have rash that appears red. History of intertrigo. Complaining of vaginal discharge. No dysuria. mostly discharge. Concerning for candidaisis of vulva given past medical history or recurrent yeast infections. Patient also stated recent LEEP procedure for cervical cancer. 3 month follow up with OBGYN in [place]. 04/28/2024: Patient was seen and examined at the clinic this afternoon. Patient was seen by residents at the clinic. She has history of multiple psychiatric problems. Currently patient is taking couple of antipsychotics and anxiolytics which are helping the patient. She was scheduled to have an appointment with her psychiatrist today at 2:45 PM. She reported that she still continues to have chronic body aches and has fibromyalgia's for which she wants to have prescription of Bronson to be refilled. 2 weeks prescription was refilled. Additionally, she reported that she cannot monitor her blood sugars because she does not have a glucometer at home. She gained weight around 3 kg from last month although she was taking increased dose of Ozempic. She has been complaining of abdominal pain unrelated to food intake. Pain is usually in the mid epigastric region. She is unable to discern how much her blood sugars are controlled as she does not have a glucometer. She has been following up with an professor of political science at [place]. Her recent A1c came out 6.1. She was recommended to reduce the dose of insulin/NPH 25 units 3 times daily and Ozempic was discontinued and started on Mounjaro 2.5 mg whichshe was agreeable. She denied any chest pain, shortness of breath, dysuria or any other complaint. Patient insisted to check her serum lipase as she has a history of pancreatitis as well as hypertriglyceridemia therefore serum lipase was ordered. Recent labs showed A1c 6.1. Vitamin B12 608. BUN 13 and creatinine 0.67. Electrolytes unremarkable. Lipid panel showed LDL 113, VLDL 123 and HDL 38. Triglycerides 691. Albumin creatinine ratio less than 6. Vitamin D 33. Review of Systems Review of Systems Systems Reviewed: All systems reviewed, normal except as documented Objective/Exam Narrative Physical exam: GENERAL APPEARANCE: Patient is AOx3, anxious appearing female in mild discomfort due to abdominal pain. HEENT: NC, AT. MMM. EOMI, clear conjunctiva, oropharynx clear. NECK: Supple without lymphadenopathy. No stiffness or restricted ROM. HEART: Regular rate and regular rhythm, normal S1/S2, no m/r/g LUNGS: CTAB, moving air well. No crackles or wheezes are heard. ABDOMEN: Soft, mild epigastric tenderness, nondistended with good bowel sounds heard. BACK: No CVAT, no obvious deformity. EXTREMITIES: Without cyanosis, clubbing or edema. NEUROLOGICAL: Grossly nonfocal. Alert and oriented, moving all 4 extremities. CN not formally tested but appear grossly intact. Observed to ambulate with no rmal gait. Skin: Warm and dry without any rash. Psych: Conversational, anxious and mood Assessment & Plan Diagnosis / Problem List (1) Fibromyalgia: Status: Acute Assessment & Plan: ? Patient reported that she has fibromyalgia's which has been affecting her quality of life despite taking multiple antipsychotics. Plan: ? Prescription refill was given for Bronson 14 pills only as patient is taking clonazepam already to help with bodyaches and anxiety ? Patient was requested to follow-up with psychiatrist appointment today (2) Obesity (BMI 30-39.9): Status: Acute Assessment & Plan: ? Patient gained 3 kg in the last month. Although Ozempic dose was increased. Plan: ? Ozempic was discontinued and Mounjaro was started at low-dose once a week ? Recommended to continue insulin at reduced dose of 25 units four times daily (3) Bipolar disorder: Status: Acute Qualifiers: Active/Remission status: in remission of unspecified degree Qualified Code(s): F31.70 - Bipolar disorder, currently in remission, most recent episode unspecified Assessment & Plan: ? Patient is currently taking olanzapine, bupropion, clonazepam and citalopram Plan: ? Continue medications and follow-up with psychiatrist (4) Hypertriglyceridemia: Status: Acute Assessment & Plan: ? On 04/08/2024: Lipid panel showed cholesterol 274, triglycerides 691, HDL 38, VLDL 2022 and LDL 113 ? Patient was complaining of abdominal discomfort. Plan: ? Patient takes ezetimibe 10 mg once daily ? Added pravastatin 10 mg at night ? Serum lipase was ordered - Loperamide was given for abdominal pain (5) Diabetes mellitus with neuropathy: Status: Chronic Qualifiers: Diabetes mellitus type: type 2 Diabetes mellitus half-way insulin use: unspecified half-way insulin use status Qualified Code(s): E11.40 - Type 2 diabetes mellitus with diabetic neuropathy, unspecified Assessment & Plan: ? Patient uses insulin Novolin FlexPen 32 units 4 times a day ? A1c came out 6.1 ? Albumin/creatinine ratio less than 6 ? Kidney function stable with BUN 13 and creatinine 0.67, urinalysis showed glucosuria Plan: ? Recommended to reduce dose of insulin to 25 units 4 times daily and check her blood sugars at home with a glucometer prescribed today ? Continue Bronson and gabapentin for diabetic neuropathy ?Patient is to check her glucose with glucometer at least 3 times a day with goal of blood sugar control around less than 125 mg/dL during fasting and less than 200 mg/dL 2 hours postprandial Patient was discussed with Dr.Watankunakorn Dr. Meche MD, PGY 2 Orders: Orders Lipase Today K85.90 - Acute pancreatitis without necrosis or infection, unspecified Office Procedures [facility] Level of Care Nursing/Assessment Patient Status: Established Patient Nursing Assessment/Reassessment: Medication Reconciliation, Update PMH in EMR and Vital Signs Coordination of Care: Complex Care/Chronic Disease 5 or more, Consent,records obtained, informed consent, Education Simp Pt/Fam and Staff clarify orders Established Patient Charge Established Patient Point Assignment: 95 Established Patient Point Charge: Level 3 (80-115)
== END 2024-04-28 15:06 | disposition home or self-care (01) ==
LOC: HODAHC 13:46
PROVIDERS: Supervising Provider Internal Medicine; Visit Provider Student in an Organized Health Care Education/Training Program
DX: M79.7 Fibromyalgia (principal); E78.1 Pure hyperglyceridemia; Z87.19 Personal history of other diseases of the digestive system; Z76.0 Encounter for issue of repeat prescription; E66.9 Obesity, unspecified; Z68.37 Body mass index [BMI] 37.0-37.9, adult; F31.70 Bipolar disorder, currently in remission, most recent episode unspecified; E11.40 Type 2 diabetes mellitus with diabetic neuropathy, unspecified; Z79.4 Long term (current) use of insulin
CPT/HCPCS: 99213; G0463

== ENCOUNTER 2024-05-04 13:58 | Outpatient (AMB) | payer MEDICARE, MEDICAID, SELFPAY ==
--- NOTE | 2024-05-04 13:45 | PD.RESCLINIC ---
Vital Signs 05/04/24 13:46 Height 1.68 m Height Method Stated Weight 104.383 kg Weight Measurement Method Standing Scale BMI 37.0 BP 105/67 Blood Pressure Source Automatic Cuff Blood Pressure Location Left Upper Arm Position Sitting Respiration 16 Pulse 97 Pulse Source Monitor Temp 97.0 F Temp Source Temporal Artery Scan Pulse Oximetry (%) 93 L Oxygen Delivery Method Room Air Allergies/Meds Allergies & Medications Allergies No Known Allergies Allergy (Verified 05/04/24 13:48) Medication Reconciliation bupropion HCl 150 mg tablet,12 hr sustained-release 150 mg PO QAM 02/17/24 [History Confirmed 05/04/24] citalopram 40 mg tablet 40 mg PO QDAY 02/17/24 [History Confirmed 05/04/24] empagliflozin 25 mg tablet (Jardiance) 25 mg PO QDAY 02/17/24 [History Confirmed 05/04/24] ezetimibe 10 mg tablet 10 mg PO QDAY 02/17/24 [History Confirmed 05/04/24] fluconazole 150 mg tablet 150 mg PO QDAY #2 tabs 02/17/24 [Rx Confirmed 05/04/24] dvlblr-pwrcdstm-locddyr 24,000-76,000-120,000 unit capsule,delayed rel (Creon) 1 cap PO TID 02/17/24 [History Confirmed 05/04/24] lisinopril 5 mg tablet 5 mg PO QDAY 02/17/24 [History Confirmed 05/04/24] metformin 1,000 mg tablet 1,000 mg PO BID 02/17/24 [History Confirmed 05/04/24] nystatin 100,000 unit/gram topical cream 1 applic topical QDAY #30 grams 02/17/24 [Rx Confirmed 05/04/24] olanzapine 20 mg tablet 20 mg PO QPM 02/17/24 [History Confirmed 05/04/24] olanzapine 5 mg tablet 5 mg PO QHS 02/17/24 [History Confirmed 05/04/24] omeprazole 40 mg capsule,delayed release 40 mg PO QDAY 02/17/24 [History Confirmed 05/04/24] pantoprazole 40 mg granules delayed-release for susp in packet 40 mg PO QDAY 02/17/24 [History Confirmed 05/04/24] gabapentin 800 mg tablet 1,600 mg (2 x 800 mg) PO BID #90 tabs 02/24/24 [Rx Confirmed 05/04/24] fluconazole 150 mg tablet 150 mg PO QDAY #2 tabs 04/08/24 [Rx Confirmed 05/04/24] nystatin 100,000 unit/gram topical ointment 1 applic topical QDAY 15 days #30 grams 04/08/24 [Rx Confirmed 05/04/24] blood-glucose meter #1 ea 04/28/24 [Rx Confirmed 05/04/24] dicyclomine 10 mg capsule 10 mg PO BID PRN abdominal pain #30 caps 04/28/24 [Rx Confirmed 05/04/24] hydrocodone 5 mg-acetaminophen 325 mg tablet 1 tab PO BID PRN pain #14 tabs 04/28/24 [Rx Confirmed 05/04/24] insulin NPH isoph U-100 human 100 unit/mL (3 mL) subcutaneous pen (Novolin N FlexPen) 25 unit (0.25 mL) subcut QID #15 mL 04/28/24 [Rx Confirmed 05/04/24] lancets 31 gauge #100 ea 04/28/24 [Rx Confirmed 05/04/24] loperamide 2 mg capsule 2 mg PO Q6H PRN loose stool #30 caps 04/28/24 [Rx Confirmed 05/04/24] pravastatin 10 mg tablet 10 mg PO QHS #60 tabs 04/28/24 [Rx Confirmed 05/04/24] blood-glucose meter (Accu-Chek Guide Glucose Meter) #1 ea 05/04/24 [Rx] clonazepam 2 mg tablet 2 mg PO QDAY 1 month #30 tabs 05/04/24 [Rx] hydrocodone 5 mg-acetaminophen 325 mg tablet 1 tab PO BID PRN pain #60 tabs 05/04/24 [Rx] lancets (Accu-Chek Softclix Lancets) #200 ea 05/04/24 [Rx] tirzepatide 2.5 mg/0.5 mL subcutaneous pen injector 2.5 mg (0.5 mL) subcut QWEEK #2 mL 05/04/24 [Rx] MA Intake Visit Data Collection New Patient or Established: Established Patient (seen at [facility] within 3 years) Seen by Clinical Staff ONLY (RN/MA): No Pain Present Currently: No Pain scale:: 0 Pain Scale Used: Dunn-Aguilar/Numerical Junior Graphic Designer Required: No PCP or OBGYN visit in last 3 months: Yes Hx Now: No Do You Feel Safe at Home: Yes Authorities Contacted: N/A Smoking Status Smoking Status: Never smoker Immunization / Flu Flu Vaccine in the Last 12 Months: No Flu Vaccine Exclusion Criteria: No Exclusion Criteria Past Medical History Past Medical History CARDIAC: Positive Hypercholesterolemia and Hypertension; Negative Congestive Heart Failure RESPIRATORY: Negative Chronic Obstructive Pulmonary Disease (COPD) GASTROINTESTINAL: Positive Gastroesophageal Reflux Disease GENITOURINARY: Negative Renal Disease ENDOCRINE: Positive Endocrine Disorders and Diabetes Mellitus Type 2; Negative Diabetes Mellitus Type 1 PSYCHO/SOCIAL: Positive Psychiatric Problems, Bipolar Disorder, Attention Deficit Hyperactivity Disorder and Post Traumatic Stress Disorder Surgical History SURGICAL: Positive Abdominal Surgery Social History SMOKING STATUS: Smoking status: Never smoker ALCOHOL: Alcohol Intake: Never Patient Portal Questionaires Social History Tobacco History Smoking Status: Never smoker Alcohol History Alcohol Intake: Never Domestic Abuse History Do You Feel Safe at Home: Yes Review of Systems Report any current symptoms Only answer those that you have currently: Past Medical History Past Medical History Have you ever been diagnosed with any of the following: Cardiology Problems Hypercholesterolemia: Yes Congestive Heart Failure: No Hypertension: Yes Respiratory Problems Chronic Obstructive Pulmonary Disease (COPD): No Stomache/Intestinal Problems Gastroesophageal Reflux Disease: Yes Genital/Urinary Problems Renal Disease: No Endocrine Problems Diabetes Mellitus Type 1: No Diabetes Mellitus Type 2: Yes Psychologic Problems Bipolar Disorder: Yes Attention Deficit Hyperactivity Disorder: Yes Post Traumatic Stress Disorder: Yes History of Present Illness HPI Narrative Patient is a 59 year old female with a past medical history of hypertension, 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 Patient was just here last week and requested switching from Ozempic to Tirzepatide. However, patient was confused about whether it was the same as Mounjaro. Patient educated that the above medication is the exact same formulation. 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 Patient also requested a refil on her Greenwood and Clonazepam. Patient was urged to see a pain specialist to help better control her fibromyalgia as she continues to have severe aches and pains throughout. She has also been seeing a Neuropsychiatrist, and is pending workup with further tests prior to starting/adjsuting her current medications. Of note, Patient took her last dose of Ozempic on Saturday, and actually decreased 2kg since last visit. Review of Systems Review of Systems Systems Reviewed: All systems reviewed, normal except as documented Objective/Exam Narrative Physical exam: General Appearance: Pt in mild acute distress sitting in office chair. Obese. HEENT: NC/AT, no scleral icterus, no conjunctival pallor, MMM Lungs: CTAB, no wheezes or crackles appreciated CVS: RRR, S1/S2 heard, no murmurs or rubs appreciated ABD: Soft, obese, non-tender, non-distended, BS + in all 4 quadrants EXT: no deformity/edema/lesions/cyanosis/clubbing, radial pulses 2+ BL, DP pulses 2 + BL SKIN: Skin exam normal without any rashes. Neuro: A&O x 3. No gross neurological deficits. Motor and sensory grossly intact in B/L UL and LL. Psych: Appropriate mood and affect Assessment & Plan Diagnosis / Problem List (1) Fibromyalgia: Status: Acute Assessment & Plan: ? Patient reported that she has fibromyalgia's which has been affecting her quality of life despite taking multiple antipsychotics. Plan: ? Prescription refill was given for Greenwood 5mg 60 pills only as patient is taking clonazepam already to help with bodyaches and anxiety ? Patient will continue to f/u with her neuropscyhiatrist. (2) Obesity (BMI 30-39.9): Status: Acute Assessment & Plan: Despite losing 2kg this past week, patient continues to have GI upset, and would like to try Mounjaro to better control her pain and her weight loss. Plan: ? Ozempic was discontinued and Mounjaro (Tirzepatide) was started at low-dose once a week ? Recommended to continue insulin at reduced dose of 25 units four times daily (3) Diabetes mellitus with neuropathy: Status: Chronic Qualifiers: Diabetes mellitus oil heaterman insulin use: unspecified oil heaterman insulin use status Diabetes mellitus type: type 2 Qualified Code(s): E11.40 - Type 2 diabetes mellitus with diabetic neuropathy, unspecified Assessment & Plan: ? Patient uses insulin Novolin FlexPen 32 units 4 times a day ? A1c came out 6.1 ? Albumin/creatinine ratio less than 6 ? Kidney function stable with BUN 13 and creatinine 0.67, urinalysis showed glucosuria Plan: ? Recommended to reduce dose of insulin to 25 units 4 times daily and check her blood sugars at home with a glucometer prescribed today ? Continue Greenwood and gabapentin for diabetic neuropathy ? Patient is to check her glucose with glucometer at least 3 times a day with goal of blood sugar control around less than 125 mg/dL during fasting and less than 200 mg/dL 2 hours postprandial - Sent patient with glucometer and lancets to check her glucose at least three times before meals and one time after dinner with BG goal between 70-130 prior to meals and 180 mg/dL 2 hours postprandial. (4) Bipolar disorder: Status: Acute Qualifiers: Active/Remission status: in remission of unspecified degree Qualified Code(s): F31.70 - Bipolar disorder, currently in remission, most recent episode unspecified Assessment & Plan: ? Patient is currently taking olanzapine, bupropion, clonazepam and citalopram Plan: ? Continue medications and follow-up with psychiatrist Additional Assessment Patient's plan and care discussed with my attending, Dr. Barbie Juarez MD PGY-2 Office Procedures [facility] Level of Care Nursing/Assessment Patient Status: Established Patient Nursing Assessment/Reassessment: Medication Reconciliation, Update PMH in EMR and Vital Signs Coordination of Care: Complex Care/Chronic Disease 5 or more, Consent,records obtained, informed consent, Education Simp Pt/Fam and Staff clarify orders Established Patient Charge Established Patient Point Assignment: 95 Established Patient Point Charge: EP Level 3 (80-115)
[2024-05-04 13:46] VITALS: BP 105/67; PULSE 97; RESP 16; TEMP 36.1; O2SAT 93; BMI 37.0
== END 2024-05-04 14:20 | disposition home or self-care (01) ==
LOC: HODAHC 13:58
PROVIDERS: Supervising Provider Internal Medicine; Visit Provider Student in an Organized Health Care Education/Training Program
DX: M79.7 Fibromyalgia (principal); E66.9 Obesity, unspecified; Z68.37 Body mass index [BMI] 37.0-37.9, adult; E11.40 Type 2 diabetes mellitus with diabetic neuropathy, unspecified; Z79.4 Long term (current) use of insulin; F31.70 Bipolar disorder, currently in remission, most recent episode unspecified
CPT/HCPCS: 99213; G0463

== ENCOUNTER 2024-06-01 09:37 | Outpatient (AMB) | payer MEDICARE, MEDICAID, SELFPAY ==
[2024-06-01 09:58] VITALS: BP 121/75; PULSE 96; RESP 18; TEMP 36.8; O2SAT 93; BMI 36.5
--- NOTE | 2024-06-01 09:58 | ACNOTE_ITS ---
Vital Signs 06/01/24 09:58 Height 1.68 m Height Method Stated Weight 103.079 kg Weight Measurement Method Standing Scale BMI 36.5 BP 121/75 Blood Pressure Source Automatic Cuff Blood Pressure Location Left Upper Arm Position Sitting Respiration 18 Pulse 96 Pulse Source Monitor Temp 98.2 F Temp Source Temporal Artery Scan Pulse Oximetry (%) 93 L Oxygen Delivery Method Room Air Allergies/Meds Allergies & Medications Allergies No Known Allergies Allergy (Verified 06/04/24 14:38) Medication Reconciliation citalopram 40 mg tablet 40 mg PO QDAY 02/17/24 [History Confirmed 06/04/24] empagliflozin 25 mg tablet (Jardiance) 25 mg PO QDAY 02/17/24 [History Confirmed 06/04/24] ezetimibe 10 mg tablet 10 mg PO QDAY 02/17/24 [History Confirmed 06/04/24] fluconazole 150 mg tablet 150 mg PO QDAY #2 tabs 02/17/24 [Rx Confirmed 06/04/24] [id number]-[id number]-[id number] 24,000-76,000-120,000 unit capsule,delayed rel (Creon) 1 cap PO TID 02/17/24 [History Confirmed 06/04/24] lisinopril 5 mg tablet 5 mg PO QDAY 02/17/24 [History Confirmed 06/04/24] metformin 1,000 mg tablet 1,000 mg PO BID 02/17/24 [History Confirmed 06/04/24] nystatin 100,000 unit/gram topical cream 1 applic topical QDAY #30 grams 02/17/24 [Rx Confirmed 06/04/24] olanzapine 20 mg tablet 20 mg PO QPM 02/17/24 [History Confirmed 06/04/24] olanzapine 5 mg tablet 5 mg PO QHS 02/17/24 [History Confirmed 06/04/24] omeprazole 40 mg capsule,delayed release 40 mg PO QDAY 02/17/24 [History Confirmed 06/04/24] pantoprazole 40 mg granules delayed-release for susp in packet 40 mg PO QDAY 02/17/24 [History Confirmed 06/04/24] fluconazole 150 mg tablet 150 mg PO QDAY #2 tabs 04/08/24 [Rx Confirmed 06/04/24] blood-glucose meter #1 ea 04/28/24 [Rx Confirmed 06/04/24] dicyclomine 10 mg capsule 10 mg PO BID PRN abdominal pain #30 caps 04/28/24 [Rx Confirmed 06/04/24] insulin NPH isoph U-100 human 100 unit/mL (3 mL) subcutaneous pen (Novolin N FlexPen) 25 unit (0.25 mL) subcut QID #15 mL 04/28/24 [Rx Confirmed 06/04/24] lancets 31 gauge #100 ea 04/28/24 [Rx Confirmed 06/04/24] pravastatin 10 mg tablet 10 mg PO QHS #60 tabs 04/28/24 [Rx Confirmed 06/04/24] blood-glucose meter (Accu-Chek Guide Glucose Meter) #1 ea 05/04/24 [Rx Confirmed 06/04/24] lancets (Accu-Chek Softclix Lancets) #200 ea 05/04/24 [Rx Confirmed 06/04/24] bupropion HCl 150 mg tablet,12 hr sustained-release 150 mg PO QAM #30 ea 05/25/24 [Rx Confirmed 06/04/24] clonazepam 2 mg tablet 2 mg PO QDAY 1 month #30 tabs 05/25/24 [Rx Confirmed 06/04/24] gabapentin 800 mg tablet 1,600 mg (2 x 800 mg) PO BID #120 tabs 05/25/24 [Rx Confirmed 06/04/24] tirzepatide 2.5 mg/0.5 mL subcutaneous pen injector 2.5 mg (0.5 mL) subcut QWEEK #2 mL 05/25/24 [Rx Confirmed 06/04/24] hydrocodone 5 mg-acetaminophen 325 mg tablet 1 tab PO Q6H PRN pain 1 month #120 tabs 06/01/24 [Rx Confirmed 06/04/24] loperamide 2 mg capsule 2 mg PO Q6H PRN loose stool #30 caps 06/01/24 [Rx Confirmed 06/04/24] nystatin 100,000 unit/gram topical ointment 1 applic topical QDAY 15 days #30 grams 06/04/24 [Rx] MA Intake Visit Data Collection New Patient or Established: Established Patient (seen at [facility] within 3 years) Seen by Clinical Staff ONLY (RN/MICHAEL): No Pain Present Currently: No Pain scale:: 0 Pain Scale Used: Dunn-Aguilar/Numerical Dental Ceramist Assistant Required: No PCP or OBGYN visit in last 3 months: No Hx Now: No Do You Feel Safe at Home: Yes Authorities Contacted: N/A Smoking Status Smoking Status: Never smoker Immunization / Flu Flu Vaccine in the Last 12 Months: No Flu Vaccine Exclusion Criteria: No Exclusion Criteria Past Medical History Past Medical History CARDIAC: Positive Hypercholesterolemia and Hypertension; Negative Congestive Heart Failure RESPIRATORY: Negative Chronic Obstructive Pulmonary Disease (COPD) GASTROINTESTINAL: Positive Gastroesophageal Reflux Disease GENITOURINARY: Negative Renal Disease ENDOCRINE: Positive Endocrine Disorders and Diabetes Mellitus Type 2; Negative Diabetes Mellitus Type 1 PSYCHO/SOCIAL: Positive Psychiatric Problems, Bipolar Disorder, Attention Deficit Hyperactivity Disorder and Post Traumatic Stress Disorder Surgical History SURGICAL: Positive Abdominal Surgery Social History SMOKING STATUS: Smoking status: Never smoker ALCOHOL: Alcohol Intake: Never Patient Portal Questionaires Social History Tobacco History Smoking Status: Never smoker Alcohol History Alcohol Intake: Never Domestic Abuse History Do You Feel Safe at Home: Yes Review of Systems Report any current symptoms Only answer those that you have currently: Past Medical History Past Medical History Have you ever been diagnosed with any of the following: Cardiology Problems Hypercholesterolemia: Yes Congestive Heart Failure: No Hypertension: Yes Respiratory Problems Chronic Obstructive Pulmonary Disease (COPD): No Stomache/Intestinal Problems Gastroesophageal Reflux Disease: Yes Genital/Urinary Problems Renal Disease: No Endocrine Problems Diabetes Mellitus Type 1: No Diabetes Mellitus Type 2: Yes Psychologic Problems Bipolar Disorder: Yes Attention Deficit Hyperactivity Disorder: Yes Post Traumatic Stress Disorder: Yes History of Present Illness HPI Narrative Patient is a 59 year old female with a past medical history of hypertension, 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 04/08/2024: Patient has a complex medical history with several psychiatric medications on board. Patient takes Olanzapine 10 mg AM, 10 mg at noon, and 20 mg at bed time. Wellbutrin 150 mg tablet once a day. Citalopram 40 mg. Clonazepam 2 mg. Patient is establishing psychiatric care within [facility] after moving from [facility]. Patient is following up with refills for Novolin N/NPH 32 units TID and Ozemic 1 mg-->increased to 2 mg subq weekly. Patient continues to take Metformin 1,000 mg BID, and Tresibia 30 units in the morning. Despite this extensive list, patient continues to have fasting glucose of 240- 250 in the morning prior to food. Patient follows an casket assembler in [place], Dr. Allison. Denied hypoglycemic episodes. Denied increased perspiration or NO loss of consciousness. Positive for polydispyia. No recent baseline for fasting glucose or A1c. Ordering new labs. Patient stated inner thighs and folds under skin have rash that appears red. History of intertrigo. Complaining of vaginal discharge. No dysuria. mostly discharge. Concerning for candidaisis of vulva given past medical history or recurrent yeast infections. Patient also stated recent LEEP procedure for cervical cancer. 3 month follow up with OBGYN in [place]. 04/28/2024: Patient was seen and examined at the clinic this afternoon. Patient was seen by residents at the clinic. She has history of multiple psychiatric problems. Currently patient is taking couple of antipsychotics and anxiolytics which are helping the patient. She was scheduled to have an appointment with her psychiatrist today at 2:45 PM. She reported that she still continues to have chronic body aches and has fibromyalgia's for which she wants to have prescription of [place] to be refilled. 2 weeks prescription was refilled. Additionally, she reported that she cannot monitor her blood sugars because she does not have a glucometer at home. She gained weight around 3 kg from last month although she was taking increased dose of Ozempic. She has been complaining of abdominal pain unrelated to food intake. Pain is usually in the mid epigastric region. She is unable to discern how much her blood sugars are controlled as she does not have a glucometer. She has been following up with an casket assembler at [place]. Her recent A1c came out 6.1. She was recommended to reduce the dose of insulin/NPH 25 units 3 times daily and Ozempic was discontinued and started on Mounjaro 2.5 mg whichshe was agreeable. She denied any chest pain, shortness of breath, dysuria or any other complaint. Patient insisted to check her serum lipase as she has a history of pancreatitis as well as hypertriglyceridemia therefore serum lipase was ordered. 06/01/2024: Patient seen and examined in clinic. Patient presented with complaint of significant pain not well-controlled with current medications. Patient has history of fibromyalgia. Describes the pain has widespread, deep aching pain patient was recently prescribed [place] 5 twice daily as needed for pain, states she has been taking 4 daily in order to control pain. Is currently maxed out on gabapentin 1600 mg twice daily. Of note, patient has extensive psych history with multiple medications complicating possible pain medication options. Placed referral for barrel painter, increased [place] dose. Review of Systems Review of Systems Systems Reviewed: All systems reviewed, normal except as documented Objective/Exam Narrative Physical exam: PE: Gen: Well-developed and well-nourished. Obese. HEENT: NCAT, PERRLA, EOMI, MMM, anicteric conjunctivae. CVS: normal S1 and S2. RRR. No M/R/G. Resp: CTA B/L. No rhonchi, rales, crackles or wheezing. Abd: soft, non-tender, non-distended. BS+ in all 4 quadrants. MSK: Good ROM in BUE & BLE. No edema or rash. Neuro: CN II-XII grossly intact. Strength 5/5 in BUE & BLE. Alert and oriented x3. Psych: appropriate mood and affect. Assessment & Plan Diagnosis / Problem List (1) Fibromyalgia: Status: Acute Assessment & Plan: Patient has history of fibromyalgia. Patient reports that despite attempted pain control with gabapentin and [place], of multiple antipsychotics, pain remains significant, interfering with patient's daily life. Patient is prescribed [place] 5 twice daily as needed for pain, reports taking 4 daily. Plan: - Prescription [place] 5mg 1 month supply up to 4 times daily as needed for significant pain. - Placed referral for barrel painter Dr. Alfredito [place]. - Patient will continue to f/u with her neuropscyhiatrist. Orders: Referrals Referral Pain Management M79.7 - Fibromyalgia Additional Assessment Internal Medicine Attending Note: Case discussed with and agree with note and management plan of Resident Physician as per Resident's Note above. Issues of concern for present visit are as follows: Multiple complaints. Complaining of widespread pain. History of fibromyalgia. Strong psychiatric overlay. Patient does see a neuropsychiatrist. Patient is taking a maximum dose of gabapentin already. Would like to use duloxetine, but cannot use this due to other current psychiatric meds. Patient has previously been prescribed [place] 5 mg twice daily as needed, but has been taking 4 a day. Will make a referral to pain management today. Limited amount of [place] prescribed for pain, 5 mg p.o. 4 times daily as needed. Patient informed of addictive potential of these medications as well as abuse potential. Patient also aware that she is not to divert this medication. West Valentin MD Physician Billing Established Patient Established Patient: E/M Level 3-CPT 22242 Office Procedures [facility] Level of Care Nursing/Assessment Patient Status: Established Patient Nursing Assessment/Reassessment: Medication Reconciliation, Update PMH in EMR and Vital Signs Coordination of Care: Complex Care/Chronic Disease 5 or more, Consent,records obtained, informed consent, Education Simp Pt/Fam and Staff clarify orders Established Patient Charge Established Patient Point Assignment: 95 Established Patient Point Charge: EP Level 3 (80-115)
== END 2024-06-01 11:07 | disposition home or self-care (01) ==
LOC: HODAHC 09:37
PROVIDERS: Supervising Provider Internal Medicine
DX: M79.7 Fibromyalgia (principal)
CPT/HCPCS: 99213; G0463

== ENCOUNTER 2024-06-04 14:14 | Outpatient (AMB) | payer MEDICARE, MEDICAID, SELFPAY ==
--- NOTE | 2024-06-04 14:35 | PD.RESCLINIC ---
Vital Signs 06/04/24 14:37 Height 1.68 m Height Method Stated Weight 105.914 kg Weight Measurement Method Standing Scale BMI 37.5 BP 118/70 Blood Pressure Source Automatic Cuff Blood Pressure Location Right Upper Arm Position Sitting Respiration 18 Pulse 87 Pulse Source Monitor Temp 97.5 F Temp Source Temporal Artery Scan Pulse Oximetry (%) 92 L Oxygen Delivery Method Room Air Allergies/Meds Allergies & Medications Allergies No Known Allergies Allergy (Verified 06/04/24 14:38) Medication Reconciliation citalopram 40 mg tablet 40 mg PO QDAY 02/17/24 [History Confirmed 06/04/24] empagliflozin 25 mg tablet (Jardiance) 25 mg PO QDAY 02/17/24 [History Confirmed 06/04/24] ezetimibe 10 mg tablet 10 mg PO QDAY 02/17/24 [History Confirmed 06/04/24] fluconazole 150 mg tablet 150 mg PO QDAY #2 tabs 02/17/24 [Rx Confirmed 06/04/24] sxqoow-hdurxwtq-nwxbfsi 24,000-76,000-120,000 unit capsule,delayed rel (Creon) 1 cap PO TID 02/17/24 [History Confirmed 06/04/24] lisinopril 5 mg tablet 5 mg PO QDAY 02/17/24 [History Confirmed 06/04/24] metformin 1,000 mg tablet 1,000 mg PO BID 02/17/24 [History Confirmed 06/04/24] nystatin 100,000 unit/gram topical cream 1 applic topical QDAY #30 grams 02/17/24 [Rx Confirmed 06/04/24] olanzapine 20 mg tablet 20 mg PO QPM 02/17/24 [History Confirmed 06/04/24] olanzapine 5 mg tablet 5 mg PO QHS 02/17/24 [History Confirmed 06/04/24] omeprazole 40 mg capsule,delayed release 40 mg PO QDAY 02/17/24 [History Confirmed 06/04/24] pantoprazole 40 mg granules delayed-release for susp in packet 40 mg PO QDAY 02/17/24 [History Confirmed 06/04/24] fluconazole 150 mg tablet 150 mg PO QDAY #2 tabs 04/08/24 [Rx Confirmed 06/04/24] blood-glucose meter #1 ea 04/28/24 [Rx Confirmed 06/04/24] dicyclomine 10 mg capsule 10 mg PO BID PRN abdominal pain #30 caps 04/28/24 [Rx Confirmed 06/04/24] insulin NPH isoph U-100 human 100 unit/mL (3 mL) subcutaneous pen (Novolin N FlexPen) 25 unit (0.25 mL) subcut QID #15 mL 04/28/24 [Rx Confirmed 06/04/24] lancets 31 gauge #100 ea 04/28/24 [Rx Confirmed 06/04/24] pravastatin 10 mg tablet 10 mg PO QHS #60 tabs 04/28/24 [Rx Confirmed 06/04/24] blood-glucose meter (Accu-Chek Guide Glucose Meter) #1 ea 05/04/24 [Rx Confirmed 06/04/24] lancets (Accu-Chek Softclix Lancets) #200 ea 05/04/24 [Rx Confirmed 06/04/24] bupropion HCl 150 mg tablet,12 hr sustained-release 150 mg PO QAM #30 ea 05/25/24 [Rx Confirmed 06/04/24] clonazepam 2 mg tablet 2 mg PO QDAY 1 month #30 tabs 05/25/24 [Rx Confirmed 06/04/24] gabapentin 800 mg tablet 1,600 mg (2 x 800 mg) PO BID #120 tabs 05/25/24 [Rx Confirmed 06/04/24] tirzepatide 2.5 mg/0.5 mL subcutaneous pen injector 2.5 mg (0.5 mL) subcut QWEEK #2 mL 05/25/24 [Rx Confirmed 06/04/24] hydrocodone 5 mg-acetaminophen 325 mg tablet 1 tab PO Q6H PRN pain 1 month #120 tabs 06/01/24 [Rx Confirmed 06/04/24] loperamide 2 mg capsule 2 mg PO Q6H PRN loose stool #30 caps 06/01/24 [Rx Confirmed 06/04/24] nystatin 100,000 unit/gram topical ointment 1 applic topical QDAY 15 days #30 grams 06/04/24 [Rx] MA Intake Visit Data Collection New Patient or Established: Established Patient (seen at [facility] within 3 years) Seen by Clinical Staff ONLY (RN/MICHAEL): No Pain Present Currently: No Pain scale:: 0 Pain Scale Used: Dunn-Aguilar/Numerical Information Security Director Required: No PCP or OBGYN visit in last 3 months: No Hx Now: No Do You Feel Safe at Home: Yes Authorities Contacted: N/A Smoking Status Smoking Status: Never smoker Immunization / Flu Flu Vaccine in the Last 12 Months: No Flu Vaccine Exclusion Criteria: Already Received Past Medical History Past Medical History CARDIAC: Positive Hypercholesterolemia and Hypertension; Negative Congestive Heart Failure RESPIRATORY: Negative Chronic Obstructive Pulmonary Disease (COPD) GASTROINTESTINAL: Positive Gastroesophageal Reflux Disease GENITOURINARY: Negative Renal Disease ENDOCRINE: Positive Endocrine Disorders and Diabetes Mellitus Type 2; Negative Diabetes Mellitus Type 1 PSYCHO/SOCIAL: Positive Psychiatric Problems, Bipolar Disorder, Attention Deficit Hyperactivity Disorder and Post Traumatic Stress Disorder Surgical History SURGICAL: Positive Abdominal Surgery Social History SMOKING STATUS: Smoking status: Never smoker ALCOHOL: Alcohol Intake: Never Patient Portal Questionaires Social History Tobacco History Smoking Status: Never smoker Alcohol History Alcohol Intake: Never Domestic Abuse History Do You Feel Safe at Home: Yes Review of Systems Report any current symptoms Only answer those that you have currently: Past Medical History Past Medical History Have you ever been diagnosed with any of the following: Cardiology Problems Hypercholesterolemia: Yes Congestive Heart Failure: No Hypertension: Yes Respiratory Problems Chronic Obstructive Pulmonary Disease (COPD): No Stomache/Intestinal Problems Gastroesophageal Reflux Disease: Yes Genital/Urinary Problems Renal Disease: No Endocrine Problems Diabetes Mellitus Type 1: No Diabetes Mellitus Type 2: Yes Psychologic Problems Bipolar Disorder: Yes Attention Deficit Hyperactivity Disorder: Yes Post Traumatic Stress Disorder: Yes History of Present Illness HPI Narrative Patient is a 59 years old female with past medical history of hypertension, 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 She presented today due to fibromyalgia pain involving all her body. She reports her pain is not well controlled with [place] 5/325 and asks for [place] 10/325. She did not follow up with her pain specialist. She also reports she has itchy rash in vaginal area and has an appointment scheduled soon. She continues on gabapentin and bupropion prescribed by her psychiatrist. She denies any trauma, fever, chills. Review of Systems Review of Systems Systems Reviewed: All systems reviewed, normal except as documented Objective/Exam Narrative Physical exam: Gen: Well-developed and well-nourished obese female. HEENT: NCAT, PERRLA, EOMI, MMM, anicteric conjunctivae, poor dentition. CVS: normal S1 and S2. RRR. No M/R/G. Resp: CTA B/L. No rhonchi, rales, crackles or wheezing. Abd: soft, obese, non-tender, non-distended. BS+ in all 4 quadrants. MSK: Good ROM in BUE & BLE. No edema or rash. Neuro: CN II-XII grossly intact. Strength 5/5 in BUE & BLE. Alert and oriented x3. : deffered. Assessment & Plan Diagnosis / Problem List (1) Fibromyalgia: Status: Acute Assessment & Plan: Patient has history of fibromyalgia. Patient reports that despite attempted pain control with gabapentin and [place], of multiple antipsychotics, pain remains significant, interfering with patient's daily life. Patient is prescribed [place] 5 twice daily as needed for pain, reports taking 4 daily. Plan: - continue on [place] 5/325mg 1 month supply up to 4 times daily as needed for significant pain. - follow up with paint mixer machine Dr. Alfredito [place] as referred during prior visit. - Patient will continue to f/u with her neuropscyhiatrist. (2) Vaginal yeast infection: Status: Chronic Assessment & Plan: Reports itchiness and rash in vaginal region, physical exam deffered. Plan: Nystatin cream prescribed for 2 weeks. (3) Obesity, morbid: Status: Acute Plan: Continue current management. Additional Assessment Internal Medicine Attending Note: Case discussed with and agree with note and management plan of Resident Physician as per Resident's Note above. Issues of concern for present visit are as follows: Follow-up visit. Patient reporting more pain and requesting increase in dose of narcotic. Of note, patient has been prescribed [place] 5 mg twice daily as needed for pain, but it was increased to up to 4 times a day with last prescription 3 days prior. Patient initially reports being out of medication but then states that she does have some. Is also reported during daughters office visit that she had taken some of mother's narcotic pain medication. It is explained to the patient in no uncertain terms that medications are not to be diverted from who they are prescribed for. There is also no indication at this time to increase the dose of pain medication, as the dose was increased at the prior visit. She is currently on a total of 20 morphine equivalents a day. The addictive nature of these medications is reviewed with the patient. She has been referred to pain management for further assessment. Of note, she is on a maximum dose of gabapentin, and does follow with a neuropsychiatrist and is on a number of psychiatric meds. Suspect there is strong psychiatric overlay to her complaints. At this juncture, no changes to treatment. Topical nystatin prescribed for rash in vaginal region, patient defers on physical exam at this time so we will treat empirically. West Valentin MD Additional Plan Plan of care discussed with attending Dr. Valentin. Hussein Cheung MD, PGY 2. Disclaimer: This note was dictated by speech recognition. Minor errors in stock chaser may be present due to voice recognition software. Physician Billing Established Patient Established Patient: E/M Level 3-CPT 84397 Office Procedures [facility] Level of Care Nursing/Assessment Patient Status: Established Patient Nursing Assessment/Reassessment: Medication Reconciliation, Update PMH in EMR and Vital Signs Coordination of Care: Complex Care and Chronic Disease 1-5, Consent,records obtained, informed consent, Education Simp Pt/Fam and Staff clarify orders Established Patient Charge Established Patient Point Assignment: 85 Established Patient Point Charge: EP Level 3 (80-115)
[2024-06-04 14:37] VITALS: BP 118/70; PULSE 87; RESP 18; TEMP 36.4; O2SAT 92; BMI 37.5
== END 2024-06-04 15:37 | disposition home or self-care (01) ==
LOC: HODAHC 14:14
PROVIDERS: Supervising Provider Internal Medicine; Visit Provider Student in an Organized Health Care Education/Training Program
DX: M79.7 Fibromyalgia (principal); B37.31 Acute candidiasis of vulva and vagina; E66.01 Morbid (severe) obesity due to excess calories; Z68.37 Body mass index [BMI] 37.0-37.9, adult; I10 Essential (primary) hypertension; E11.42 Type 2 diabetes mellitus with diabetic polyneuropathy; Z79.4 Long term (current) use of insulin; K21.9 Gastro-esophageal reflux disease without esophagitis; F41.9 Anxiety disorder, unspecified; F31.9 Bipolar disorder, unspecified; Z79.84 Long term (current) use of oral hypoglycemic drugs
CPT/HCPCS: 99213; G0463

== ENCOUNTER 2024-06-29 10:09 | Outpatient (AMB) | payer MEDICARE, MEDICAID, SELFPAY ==
[2024-06-29 10:19] VITALS: BP 126/79; PULSE 109; RESP 17; TEMP 36.8; O2SAT 95; BMI 36.0
--- NOTE | 2024-06-29 10:19 | ACNOTE_ITS ---
Vital Signs 06/29/24 10:19 Height 1.68 m Height Method Stated Weight 101.718 kg Weight Measurement Method Standing Scale BMI 36.0 BP 126/79 Blood Pressure Source Automatic Cuff Blood Pressure Location Right Upper Arm Position Sitting Respiration 17 Pulse 109 H Pulse Source Monitor Temp 98.2 F Temp Source Temporal Artery Scan Pulse Oximetry (%) 95 Oxygen Delivery Method Room Air Allergies/Meds Allergies & Medications Allergies No Known Allergies Allergy (Verified 06/29/24 10:20) Medication Reconciliation citalopram 40 mg tablet 40 mg PO QDAY 02/17/24 [History Confirmed 06/29/24] empagliflozin 25 mg tablet (Jardiance) 25 mg PO QDAY 02/17/24 [History Confirmed 06/29/24] ezetimibe 10 mg tablet 10 mg PO QDAY 02/17/24 [History Confirmed 06/29/24] fluconazole 150 mg tablet 150 mg PO QDAY #2 tabs 02/17/24 [Rx Confirmed 06/29/24] jmdizk-prsqgidu-jvslaqn 24,000-76,000-120,000 unit capsule,delayed rel (Creon) 1 cap PO TID 02/17/24 [History Confirmed 06/29/24] lisinopril 5 mg tablet 5 mg PO QDAY 02/17/24 [History Confirmed 06/29/24] metformin 1,000 mg tablet 1,000 mg PO BID 02/17/24 [History Confirmed 06/29/24] nystatin 100,000 unit/gram topical cream 1 applic topical QDAY #30 grams 02/17/24 [Rx Confirmed 06/29/24] olanzapine 20 mg tablet 20 mg PO QPM 02/17/24 [History Confirmed 06/29/24] olanzapine 5 mg tablet 5 mg PO QHS 02/17/24 [History Confirmed 06/29/24] omeprazole 40 mg capsule,delayed release 40 mg PO QDAY 02/17/24 [History Confirmed 06/29/24] pantoprazole 40 mg granules delayed-release for susp in packet 40 mg PO QDAY 02/17/24 [History Confirmed 06/29/24] fluconazole 150 mg tablet 150 mg PO QDAY #2 tabs 04/08/24 [Rx Confirmed 06/29/24] blood-glucose meter #1 ea 04/28/24 [Rx Confirmed 06/29/24] dicyclomine 10 mg capsule 10 mg PO BID PRN abdominal pain #30 caps 04/28/24 [Rx Confirmed 06/29/24] insulin NPH isoph U-100 human 100 unit/mL (3 mL) subcutaneous pen (Novolin N FlexPen) 25 unit (0.25 mL) subcut QID #15 mL 04/28/24 [Rx Confirmed 06/29/24] lancets 31 gauge #100 ea 04/28/24 [Rx Confirmed 06/29/24] blood-glucose meter (Accu-Chek Guide Glucose Meter) #1 ea 05/04/24 [Rx Confirmed 06/29/24] lancets (Accu-Chek Softclix Lancets) #200 ea 05/04/24 [Rx Confirmed 06/29/24] bupropion HCl 150 mg tablet,12 hr sustained-release 150 mg PO QAM #30 ea 05/25/24 [Rx Confirmed 06/29/24] tirzepatide 2.5 mg/0.5 mL subcutaneous pen injector 2.5 mg (0.5 mL) subcut QWEEK #2 mL 05/25/24 [Rx Confirmed 06/29/24] gabapentin 800 mg tablet 1,600 mg (2 x 800 mg) PO BID #120 tabs 06/24/24 [Rx Confirmed 06/29/24] pravastatin 10 mg tablet 10 mg PO QHS #60 tabs 06/24/24 [Rx Confirmed 06/29/24] hydrocodone 5 mg-acetaminophen 325 mg tablet 1 tab PO Q6H PRN pain 1 month #120 tabs 06/29/24 [Rx] loperamide 2 mg capsule 2 mg PO Q6H PRN loose stool #30 caps 06/29/24 [Rx] MA Intake Visit Data Collection New Patient or Established: Established Patient (seen at [facility] within 3 years) Seen by Clinical Staff ONLY (RN/MA): No Pain Present Currently: No Pain scale:: 0 Pain Scale Used: Dunn-Aguilar/Numerical Infant Childcare Provider Required: No PCP or OBGYN visit in last 3 months: No Hx Now: No Do You Feel Safe at Home: Yes Authorities Contacted: N/A Smoking Status Smoking Status: Never smoker Immunization / Flu Flu Vaccine in the Last 12 Months: No Flu Vaccine Exclusion Criteria: No Exclusion Criteria Past Medical History Past Medical History CARDIAC: Positive Hypercholesterolemia and Hypertension; Negative Congestive Heart Failure RESPIRATORY: Negative Chronic Obstructive Pulmonary Disease (COPD) GASTROINTESTINAL: Positive Gastroesophageal Reflux Disease GENITOURINARY: Negative Renal Disease ENDOCRINE: Positive Endocrine Disorders and Diabetes Mellitus Type 2; Negative Diabetes Mellitus Type 1 PSYCHO/SOCIAL: Positive Psychiatric Problems, Bipolar Disorder, Attention Deficit Hyperactivity Disorder and Post Traumatic Stress Disorder Surgical History SURGICAL: Positive Abdominal Surgery Social History SMOKING STATUS: Smoking status: Never smoker ALCOHOL: Alcohol Intake: Never Patient Portal Questionaires Social History Tobacco History Smoking Status: Never smoker Alcohol History Alcohol Intake: Never Domestic Abuse History Do You Feel Safe at Home: Yes Review of Systems Report any current symptoms Only answer those that you have currently: Past Medical History Past Medical History Have you ever been diagnosed with any of the following: Cardiology Problems Hypercholesterolemia: Yes Congestive Heart Failure: No Hypertension: Yes Respiratory Problems Chronic Obstructive Pulmonary Disease (COPD): No Stomache/Intestinal Problems Gastroesophageal Reflux Disease: Yes Genital/Urinary Problems Renal Disease: No Endocrine Problems Diabetes Mellitus Type 1: No Diabetes Mellitus Type 2: Yes Psychologic Problems Bipolar Disorder: Yes Attention Deficit Hyperactivity Disorder: Yes Post Traumatic Stress Disorder: Yes History of Present Illness HPI Narrative Patient is a 59 year old female with a past medical history of hypertension, 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 04/08/2024: Patient has a complex medical history with several psychiatric medications on board. Patient takes Olanzapine 10 mg AM, 10 mg at noon, and 20 mg at bed time. Wellbutrin 150 mg tablet once a day. Citalopram 40 mg. Clonazepam 2 mg. Patient is establishing psychiatric care within [facility] after moving from [facility]. Patient is following up with refills for Novolin N/NPH 32 units TID and Ozemic 1 mg-->increased to 2 mg subq weekly. Patient continues to take Metformin 1,000 mg BID, and Tresibia 30 units in the morning. Despite this extensive list, patient continues to have fasting glucose of 240- 250 in the morning prior to food. [place] Denied hypoglycemic episodes. Denied increased perspiration or NO loss of consciousness. Positive for polydispyia. No recent baseline for fasting glucose or A1c. Ordering new labs. Patient stated inner thighs and folds under skin have rash that appears red. History of intertrigo. Complaining of vaginal discharge. No dysuria. mostly discharge. Concerning for candidaisis of vulva given past medical history or recurrent yeast infections. Patient also stated recent LEEP procedure for cervical cancer. 3 month follow up with OBGYN in [place]. 04/28/2024: Patient was seen and examined at the clinic this afternoon. Patient was seen by residents at the clinic. She has history of multiple psychiatric problems. Currently patient is taking couple of antipsychotics and anxiolytics which are helping the patient. She was scheduled to have an appointment with her psychiatrist today at 2:45 PM. She reported that she still continues to have chronic body aches and has fibromyalgia's for which she wants to have prescription of Ethel to be refilled. 2 weeks prescription was refilled. Additionally, she reported that she cannot monitor her blood sugars because she does not have a glucometer at home. She gained weight around 3 kg from last month although she was taking increased dose of Ozempic. She has been complaining of abdominal pain unrelated to food intake. Pain is usually in the mid epigastric region. She is unable to discern how much her blood sugars are controlled as she does not have a glucometer. She has been following up with an printing table hand at [place]. Her recent A1c came out 6.1. She was recommended to reduce the dose of insulin/NPH 25 units 3 times daily and Ozempic was discontinued and started on Mounjaro 2.5 mg whichshe was agreeable. She denied any chest pain, shortness of breath, dysuria or any other complaint. Patient insisted to check her serum lipase as she has a history of pancreatitis as well as hypertriglyceridemia therefore serum lipase was ordered. 06/01/2024: Patient seen and examined in clinic. Patient presented with complaint of significant pain not well-controlled with current medications. Patient has history of fibromyalgia. Describes the pain has widespread, deep aching pain patient was recently prescribed Ethel 5 twice daily as needed for pain, states she has been taking 4 daily in order to control pain. Is currently maxed out on gabapentin 1600 mg twice daily. Of note, patient has extensive psych history with multiple medications complicating possible pain medication options. Placed referral for painter supervisor, increased Ethel dose. 06/29/2024: Patient seen and examined in clinic. Patient presents with complaint of abdominal pain with associated nausea and vomiting x 1 week. Patient has not been able to tolerate any intake including fluids. Patient also notes diarrhea leading to constipation over past couple days. Patient is no history of pancreatitis. Abdominal tenderness on exam, significant in epigastric region. Recommended patient go to ER for further management including CT. Review of Systems Review of Systems Systems Reviewed: All systems reviewed, normal except as documented Objective/Exam Narrative Physical exam: PE: Gen: Well-developed and well-nourished. Obese. HEENT: NCAT, PERRLA, EOMI, MMM, anicteric conjunctivae. CVS: normal S1 and S2. RRR. No M/R/G. Resp: CTA B/L. No rhonchi, rales, crackles or wheezing. Abd: Diffuse abdominal tenderness, most significant in epigastric region. MSK: Good ROM in BUE & BLE. No edema or rash. Neuro: CN II-XII grossly intact. Strength 5/5 in BUE & BLE. Alert and oriented x3. Psych: appropriate mood and affect. Assessment & Plan Diagnosis / Problem List (1) Abdominal pain: Status: Acute Qualifiers: Abdominal location: epigastric Qualified Code(s): R10.13 - Epigastric pain Assessment & Plan: Patient presented with complaint of abdominal pain, diffuse, significant epigastric region, with associated nausea and vomiting x 1 week. Patient unable to tolerate any p.o. intake during this time. Patient has not history of pancreatitis. Plan: Recommend patient go to ED for further management including abdominal CT and labs. 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 Patient reports that despite attempted pain control with gabapentin and Ethel, of multiple antipsychotics, pain remains significant, interfering with patient's daily life. Patient is prescribed Ethel 5 twice daily as needed for pain, reports taking 4 daily. Plan: - continue on Ethel 5/325mg 1 month supply up to 4 times daily as needed for significant pain. - follow up with painter supervisor Dr. Alfredito [place] as referred during previous visit. - Patient will continue to f/u with her neuropscyhiatrist. (4) Anxiety: Status: Acute Assessment & Plan: Patient has history of anxiety, takes outpatient clonazepam 2 mg at bedtime. Reporting low medications. Has not reestablished care with psychiatrist since returning to this area. Plan: Refilled patient's clonazepam for 1 month only. Have patient follow-up with [facility] mental services for further care. (5) Obesity (BMI 30-39.9): Status: Acute Assessment & Plan: Patient complains of not being able to lose weight and thinks she may have OCD manage she has an oral fixation of having to always put something in her mouth. Currently on Ozempic 1mg weekly. Plan: Encourage patient to follow up with printing table hand for management of ozempic. Additional Plan Plan of care discussed with attending Dr. Valentin. Eduard Cuadra MD PGY?1 Office Procedures [facility] Level of Care Nursing/Assessment Patient Status: Established Patient Nursing Assessment/Reassessment: Medication Reconciliation, Update PMH in EMR and Vital Signs Coordination of Care: Complex Care/Chronic Disease 5 or more, Consent,records obtained, informed consent, Education Simp Pt/Fam and Staff clarify orders Established Patient Charge Established Patient Point Assignment: 95 Established Patient Point Charge: EP Level 3 (80-115)
== END 2024-06-29 10:57 | disposition home or self-care (01) ==
LOC: HODAHC 10:09
PROVIDERS: Supervising Provider Internal Medicine
DX: R10.13 Epigastric pain (principal); R11.2 Nausea with vomiting, unspecified; R19.7 Diarrhea, unspecified; K59.00 Constipation, unspecified; E11.42 Type 2 diabetes mellitus with diabetic polyneuropathy; Z79.85 Long-term (current) use of injectable non-insulin antidiabetic drugs; M79.7 Fibromyalgia; F41.9 Anxiety disorder, unspecified; E66.9 Obesity, unspecified; Z68.36 Body mass index [BMI] 36.0-36.9, adult
CPT/HCPCS: 99213; G0463

== ENCOUNTER 2024-06-30 09:11 | Emergency (ER) | payer MEDICARE, MEDICAID, SELFPAY ==
[2024-06-30 09:22] VITALS: BP 125/82; PULSE 95; RESP 18; TEMP 36.9; O2SAT 95; BMI 37.1
--- NOTE | 2024-06-30 09:24 | XR_ITS ---
Examination: CT abdomen and pelvis without contrast. Coronal 3-D reconstructions. Sagittal 2-D reconstructions. Date and time of exam:June 30, 2024 1015 hours INDICATIONS: Generalized abdominal pain beginning 5 days ago CTDI: vol (mGy): 13.3 DLP: (mGycm): 828 Technique: Axial images of the abdomen have been obtained, 3 mm slice thickness Intravenous contrast material has not been administered. Low dose protocols were performed. One or more of the following dose reduction techniques were used; automated exposure control, adjustment of the mA and/or KV according to patient size, use of iterative reconstruction technique. Findings: Hepatomegaly 21 cm with diffuse fatty infiltration throughout the liver Liver is mildly irregular in contour Absent gallbladder Spleen not enlarged No pancreatic or adrenal mass Mild bilateral hydronephrosis, no renal or ureteral calculi Stent between the stomach and jejunum No bowel obstruction Mild small bowel ileus 4 cm right pelvic cyst Retroverted atrophic uterus No adnexal mass Mild thickening of urinary bladder wall Moderate osteopenia IMPRESSION: Significant hepatomegaly, primary hepatocellular disease fatty infiltration Mild bilateral hydronephrosis, consider urinary tract infection Mild cystitis pattern Recommend pelvic sonography to assess 4 cm right pelvic cyst
--- NOTE | 2024-06-30 09:25 | PD.EDRME ---
Rapid Medical Screening Exam RME Arrival date/time: 06/30/24 09:11 59-year-old female presents to the emergency department today for complaint of generalized abdominal pain Chief Complaint: Abdominal Pain Vital signs: Vital Signs Temperature 98.5 F 06/30/24 09:22 Pulse Rate 95 06/30/24 09:22 Respiratory Rate 18 06/30/24 09:22 Blood Pressure 125/82 06/30/24 09:22 Pulse Oximetry (%) 95 06/30/24 09:22 Oxygen Delivery Method Room Air 06/30/24 09:22
[2024-06-30 09:47] LABS: Collection Type, Urine Clean Catch; Squamous Epithelial Cell,Urine 0 /hpf (0-5)
[2024-06-30 09:50] LABS: Basophils % (Auto) 0 % (0-2.5); Eosinophils # (Auto) 0.1 Thou/mm3 (0.0-0.5); Eosinophils % (Auto) 2 % (0-10); Hematocrit 39.4 % (36.0-46.0); Hemoglobin 14.5 g/dL (12.0-16.0); Immature Granulocytes % (Auto) 0 % (0-0); Immature Granulocytes Auto 0.02 Thou/mm3 (0.00-0.00); Lymphocytes # (Auto) 1.9 Thou/mm3 (1.0-4.8); Lymphocytes % (Auto) 36 % (10-50); Mean Corpuscular HGB Conc 36.8 g/dl (31.0-37.0); Mean Corpuscular Hemoglobin 33.3 pg (25.0-35.0); Mean Corpuscular Volume 90 fL (80-100); Monocytes # (Auto) 0.3 Thou/mm3 (0.0-0.8); Monocytes % (Auto) 7 % (0-12); Neutrophils # (Auto) 2.8 Thou/mm3 (1.8-7.7); Neutrophils % (Auto) 55 % (37-80); Nucleated Red Blood Cell % 0 /100 WBC (0); Platelet Count 315 Thou/mm3 (140-440); RDW Standard Deviation 42.5 fL (36.4-46.3); Red Blood Count 4.36 Miln/mm3 (4.00-5.20); White Blood Count 5.2 Thou/mm3 (3.6-11.0)
[2024-06-30 09:53] LABS: Bilirubin,Urine Negative (Negative); Blood,Urine Trace (Negative); Clarity,Urine Clear (Clear/Hazy); Color,Urine Lt-Yellow (Lt Yel-Yel); Culture Indicated,Urine Not Indicated; Glucose, Urine 4+ (Negative); Ketones,Urine Negative (Negative); Leukocyte Esterase,Urine Negative (Negative); Nitrite,Urine Negative (Negative); PH,Urine 6.5 (5.0-7.0); Protein,Urine Negative (Neg - Trace); RBC,Urine < 1 /hpf (0-3); Specific Gravity,Urine 1.006 (1.001-1.035); Urobilinogen,Urine Negative mg/dL (0.0-1.0); WBC,Urine 3 /hpf (0-5)
[2024-06-30 09:59] LABS: Amphetamine/Methamp Scrn,U Negative (Negative); Barbiturate Screen,Urine Negative (Negative); Benzodiazepines Screen,Urine Negative (Negative); Benzoylecgonine Screen, Ur Negative (Negative); Fentanyl Screen,Urine Negative (Negative); Opiate Screen,Urine Negative (Negative); THC Screen,Urine Negative (Negative)
[2024-06-30 10:23] LABS: Alanine Aminotransferase 22 U/L (10-49); Albumin, Serum 4.5 gm/dL (3.5-5.0); Albumin/Globulin Ratio 1.7 (1.2-2.2); Alkaline Phosphatase 143 U/L (46-116); Anion Gap 24 (7-16); Aspartate Amino Transferase 27 U/L (0-34); BUN/Creatinine Ratio 17 Ratio (12-20); Bilirubin,Total < 0.2 mg/dL (0.3-1.2); Blood Urea Nitrogen 15 mg/dL (9-23); Calcium 8.6 mg/dL (8.3-10.6); Calcium (Corrected) 8.6 mg/dL (8.5-10.1); Chloride 94 mMol/L (98-107); Creatinine (Component) 0.9 mg/dL (0.6-1.3); Estimated Creatinine Clearance 82.1 mL/min (>60); Globulin 2.7 gm/dL (2.3-3.5); Glucose 182 mg/dL (74-106); Lipase 43 U/L (12-53); Osmolality,Calculated 262 (275-295); Potassium 4.2 mMol/L (3.4-5.1); Sodium 128 mMol/L (136-145); Total Protein 7.2 gm/dL (5.7-8.2); eGFR > 60 See Note
[2024-06-30 10:24] LABS: Carbon Dioxide < 10.0 mMol/L (20.0-31.0)
[2024-06-30 11:17] LABS: Base Excess, Venous -1 (-3-3); O2 Saturation, Venous 81 % (96-97); PCO2, Venous 30 mmHg (36-56); PO2, Venous 43 mmHg (15-58); pH, Venous 7.48 (7.33-7.66)
[2024-06-30 11:24] LABS: Beta Hydroxybutyrate 0.1 mmol/L (<0.6)
[2024-06-30 11:31] LABS: Glucose Estimated Average 134 mg/dL (80-131); Hemoglobin A1C 6.3 % Hgb (4.8-6.0)
--- NOTE | 2024-06-30 12:35 | PD.EDADULT ---
ED General RME/HPI General Chief complaint: Abdominal Pain Stated complaint: ABD. BLOATING,PAIN X 5D Time Seen by Provider: 06/30/24 12:30 Arrival date/time: 06/30/24 09:11 CC: Diffuse abdominal pain with bloating , HPI onset approximately 5 days ago. Patient is anxious, continuously interrupting conversations asking if she is septic or not. patient is awake alert oriented not in any acute distress she is not tachypneic or tachycardic family member at bedside. Patient denies chest pain shortness of breath or difficulty breathing. Patient admits to taking Maalox and Pepto-Bismol to relieve the symptoms . Patient is nontoxic-appearing. RME / HPI RME / HPI narrative: 06/30/24 09:11 59-year-old female presents to the emergency department today for complaint of generalized abdominal pain Related Data Home Medications ?Medication ?Instructions ?Recorded ?Confirmed citalopram 40 mg tablet 40 mg PO QDAY 02/17/24 06/29/24 empagliflozin 25 mg tablet 25 mg PO QDAY 02/17/24 06/29/24 (Jardiance) ezetimibe 10 mg tablet 10 mg PO QDAY 02/17/24 06/29/24 [id number]-[id number] 1 cap PO TID 02/17/24 06/29/24 24,000-76,000-120,000 unit capsule,delayed rel (Creon) lisinopril 5 mg tablet 5 mg PO QDAY 02/17/24 06/29/24 metformin 1,000 mg tablet 1,000 mg PO BID 02/17/24 06/29/24 olanzapine 20 mg tablet 20 mg PO QPM 02/17/24 06/29/24 olanzapine 5 mg tablet 5 mg PO QHS 02/17/24 06/29/24 omeprazole 40 mg capsule,delayed 40 mg PO QDAY 02/17/24 06/29/24 release pantoprazole 40 mg granules 40 mg PO QDAY 02/17/24 06/29/24 delayed-release for susp in packet Previous Rx's ?Medication ?Instructions ?Recorded fluconazole 150 mg tablet 150 mg PO QDAY #2 tabs 02/17/24 nystatin 100,000 unit/gram topical 1 applic topical QDAY #30 grams 02/17/24 cream fluconazole 150 mg tablet 150 mg PO QDAY #2 tabs 04/08/24 blood-glucose meter #1 ea 04/28/24 dicyclomine 10 mg capsule 10 mg PO BID PRN abdominal pain 04/28/24 #30 caps insulin NPH isoph U-100 human 100 25 unit (0.25 mL) subcut QID #15 mL 04/28/24 unit/mL (3 mL) subcutaneous pen (Novolin N FlexPen) lancets 31 gauge #100 ea 04/28/24 blood-glucose meter (Accu-Chek #1 ea 05/04/24 Guide Glucose Meter) lancets (Accu-Chek Softclix #200 ea 05/04/24 Lancets) bupropion HCl 150 mg tablet,12 hr 150 mg PO QAM #30 ea 05/25/24 sustained-release tirzepatide 2.5 mg/0.5 mL 2.5 mg (0.5 mL) subcut QWEEK #2 mL 05/25/24 subcutaneous pen injector gabapentin 800 mg tablet 1,600 mg (2 x 800 mg) PO BID #120 06/24/24 tabs pravastatin 10 mg tablet 10 mg PO QHS #60 tabs 06/24/24 hydrocodone 5 mg-acetaminophen 325 1 tab PO Q6H PRN pain 1 month #120 06/29/24 mg tablet tabs loperamide 2 mg capsule 2 mg PO Q6H PRN loose stool #30 06/29/24 caps Allergies Allergy/AdvReac Type Severity Reaction Status Date / Time No Known Allergies Allergy Verified 06/30/24 09:14 Review of Systems Review of Systems Narrative Review of Systems: GEN: No fever, no chills, no weight loss EYES: No discharge, no visual changes, no pain HEENT: No ear pain, no congestion, no sore throat PULM: No shortness of breath, no cough, no congestion CV: No chest pain, no dyspnea on exertion, no palpitations GI: No nausea, no vomiting, no diarrhea, + pain, + bloating, no constipation : No frequency, no urgency, no dysuria MUSC/SKEL: No joint pain, no back pain SKIN: No rash PSYCH: No hallucinations, no depression HEME/LYMPH: No easy bleeding or bruising tendencies NEURO: No weakness, no headache Past Medical History Past Medical History CARDIAC: Positive Hypercholesterolemia and Hypertension; Negative Congestive Heart Failure RESPIRATORY: Negative Chronic Obstructive Pulmonary Disease (COPD) GASTROINTESTINAL: Positive Gastroesophageal Reflux Disease GENITOURINARY: Negative Renal Disease ENDOCRINE: Positive Endocrine Disorders and Diabetes Mellitus Type 2; Negative Diabetes Mellitus Type 1 PSYCHO/SOCIAL: Positive Psychiatric Problems, Bipolar Disorder, Attention Deficit Hyperactivity Disorder and Post Traumatic Stress Disorder Surgical History SURGICAL: Positive Abdominal Surgery Social History SMOKING STATUS: Current every day smoker SUBSTANCE USE: does not use ED Exam Narrative Physical exam: [General: Obese, anxious, not in any acute distress Head normocephalic HEENT: Within acceptable limits Neck is supple nontender Chest equal chest rise nontender to palpation Respiratory: Clear to auscultation no wheezes crackles or rubs CV: Rate rhythm is regular no murmurs rubs or clicks Abdomen is distended secondary to body habitus soft, mild diffuse tenderness throughout the abdomen when discussing abdominal pain and doing the assessment, when doing a repeat assessment without conversation there was no flinching during abdominal deep palpation in all 4 quadrants. Back: No CVA tenderness no spinous process tenderness from cervical spine thoracic and lumbar spine Skin: Intact no petechiae rash induration ulceration or crepitus Extremities: Moving all extremity against resistance cap refill less than 2 seconds neurosensory intact Neuro: Awake alert oriented x3 Glascow coma 15 no focal deficits] Course Course Course Narrative: Patient is relaxed during conversation not tachypneic or tachycardic, review of labs show there is no acute finding requires emergent or immediate intervention. Although the CT shows there is mild hydro versus no signs of urinary tract infection. Patient will be discharged home to follow-up outpatient. Quality Measures none Orders Category Date Time Status CT abdomen pelvis wo con Stat Exams 06/30/24 09:24 Completed A1C [Glycohemoglobin w (eAG)] Stat Lab 06/30/24 11:04 Completed Beta Hydroxybutyrate Stat Lab 06/30/24 11:04 Results CBC Stat Lab 06/30/24 09:38 Completed Comprehensive Metabolic Panel Stat Lab 06/30/24 09:38 Completed Drug Screen,Urine Stat Lab 06/30/24 09:36 Completed Lipase Stat Lab 06/30/24 09:38 Completed Triglycerides Stat Lab 06/30/24 11:04 Results UA, C/S IF [Urinalysis, C/S if Indicated] Stat Lab 06/30/24 09:36 Completed VBG [Venous Blood Gas] Stat Lab 06/30/24 11:04 Completed Vital Signs Vital signs: Vital Signs Temperature 98.5 F 06/30/24 09:22 Pulse Rate 95 06/30/24 09:22 Respiratory Rate 18 06/30/24 09:22 Blood Pressure 125/82 06/30/24 09:22 Pulse Oximetry (%) 95 06/30/24 09:22 Oxygen Delivery Method Room Air 06/30/24 09:22 Discharge Plan Plan Patient Disposition: HOME (Self Care) Patient condition on transfer: Stable Prescriptions/Referrals Prescriptions/Med Rec: No Action fluconazole 150 mg tablet 150 mg PO QDAY Qty: 2 0RF Rx Instructions: 1 tablet x 1 dose, may repeat a second dose after 7 days loperamide 2 mg capsule 2 mg PO Q6H PRN (Reason: loose stool) Qty: 30 0RF hydrocodone-acetaminophen 5-325 mg tablet 1 tab PO Q6H MDD 4 tabs PRN (Reason: pain) 30 Days Qty: 120 0RF citalopram 40 mg tablet 40 mg PO QDAY Jardiance 25 mg tablet 25 mg PO QDAY olanzapine 20 mg tablet 20 mg PO QPM metformin 1,000 mg tablet 1,000 mg PO BID omeprazole 40 mg capsule,delayed release(DR/EC) 40 mg PO QDAY ezetimibe 10 mg tablet 10 mg PO QDAY pantoprazole [address] for susp in packet 40 mg PO QDAY lisinopril 5 mg tablet 5 mg PO QDAY olanzapine 5 mg tablet 5 mg PO QHS Creon 24,000-76,000 -120,000 unit capsule,delayed release(DR/EC) 1 cap PO TID Rx Instructions: administer with meals and/or snacks fluconazole 150 mg tablet 150 mg PO QDAY Qty: 2 0RF Rx Instructions: take 1 pill now and again in 7 days if symptoms continue nystatin 100,000 unit/gram cream 1 applic topical QDAY Qty: 30 1RF dicyclomine 10 mg capsule 10 mg PO BID PRN (Reason: abdominal pain) Qty: 30 0RF (DME) blood-glucose meter Kit See Rx Instructions .Route Qty: 1 0RF Rx Instructions: As directed (DME) lancets 31 gauge misc See Rx Instructions .Route Qty: 100 0RF Rx Instructions: As directed Novolin N FlexPen 100 unit/mL (3 mL) insulin pen 25 unit subcut QID Qty: 15 6RF (DME) blood-glucose meter [Accu-Chek Guide Glucose Meter] Misc See Rx Instructions .Route Qty: 1 0RF Rx Instructions: As directed (DME) lancets [Accu-Chek Softclix Lancets] Misc See Rx Instructions .Route Qty: 200 0RF Rx Instructions: As directed bupropion HCl 150 mg tablet sustained-release 12 hr 150 mg PO QAM MDD 150 mg Qty: 30 1RF tirzepatide 2.5 mg/0.5 mL pen injector 2.5 mg subcut QWEEK Qty: 2 0RF Rx Instructions: for 4 weeks gabapentin 800 mg tablet 1,600 mg PO BID MDD 3200 mg Qty: 120 1RF pravastatin 10 mg tablet 10 mg PO QHS Qty: 60 0RF Referrals: Eduard Cuadra MD [Primary Care Provider] - In 1 week Problem List Clinical Impression: Abdominal pain Patient/Caregiver Discharge Instructions Education Materials: Abdominal Pain Print Language: Cypriot Stand Alone Forms: Nancy Award Info., Work/School Release, Patient Portal Info Letter 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 Supervising Physician PA/FILTER 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 Supervising Physician: Nic Mercado ENP [facility] Clinical Information Provided by: patient and family Medical Records reviewed [facility] Meds/Rx considered, not ordered None Labs/Rad/Tests considered, not ordered None Chronic Illness/Social Conditions which may negatively complicate care or outcome(s)-explain: None or not applicable EKG EKG not done Labs Labs: interpreted by me Lab(s) Interpretation(s): CBC shows no acute leukocytosis anemia thrombocytopenia VBG shows pH is 7.40 pCO2 of 30 pO2 of 43 base deficit of 1 CMP sodium of 128 potassium of 4.2 chloride 94 CO2 less than 10 gap of 24 BUN of 15 creatinine of 0.9 glucose at 182 A1c at 6.3 No transaminitis or T. bili elevation Alk phos at 143 Beta hydroxybutyrate at 0.1 Urine is 4+ glucose no signs of infection UDS is negative. Imaging Imaging interpretation: interpreted by me Imaging Interpretation(s): CT is interpreted by me read by radiology with mild bilateral hydronephrosis, mild cystitis.
[2024-06-30 12:55] LABS: Triglycerides 4285 mg/dL (30-150)
--- NOTE | 2024-06-30 13:53 | PC.NURSE ---
CALLED PATIENT IN THE LOBBY AND OUTSIDE, NO ANSWER RECIEVED.
--- NOTE | 2024-06-30 14:10 | PC.NURSE ---
CALLED PATIENT IN THE LOBBY AND OUTSIDE, NO ANSWER RECEIVED.
--- NOTE | 2024-06-30 14:30 | PC.NURSE ---
CALLED PATIENT IN THE LOBBY AND OUTSIDE, NO ANSWER RECEIVED.
== END 2024-06-30 14:34 | disposition home or self-care (01) ==
PROVIDERS: Nurse Practitioner Primary Care; Emergency Provider Emergency Medicine
DX: R10.84 Generalized abdominal pain (principal)
CPT/HCPCS: 36415; 74176; 80053; 80307; 81001; 82010; 82803; 83036; 83690; 84478; 85025; 99284

== ENCOUNTER 2024-07-08 08:55 | Outpatient (AMB) | payer MEDICARE, MEDICAID, SELFPAY ==
[2024-07-08 09:04] VITALS: BP 106/68; PULSE 93; RESP 18; TEMP 36.3; O2SAT 93; BMI 36.3
--- NOTE | 2024-07-08 09:04 | ACNOTE_ITS ---
Vital Signs 07/08/24 09:04 Height 1.68 m Height Method Stated Weight 102.625 kg Weight Measurement Method Standing Scale BMI 36.3 BP 106/68 Blood Pressure Source Automatic Cuff Blood Pressure Location Right Upper Arm Position Sitting Respiration 18 Pulse 93 Pulse Source Monitor Temp 97.3 F Temp Source Temporal Artery Scan Pulse Oximetry (%) 93 L Oxygen Delivery Method Room Air Allergies/Meds Allergies & Medications Allergies No Known Allergies Allergy (Verified 06/30/24 09:14) MA Intake Visit Data Collection New Patient or Established: Established Patient (seen at [facility] within 3 years) Seen by Clinical Staff ONLY (RN/MA): No Pain Present Currently: No Pain scale:: 0 Pain Scale Used: Dunn-Aguilar/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 Discussed the benefits of quitting smoking with patient. Encouraged patient to quit smoking and provided Cessation assistance materials and resources. Tobacco Use: Cigarette Years smoked: 0 Are you interested in quitting?: Yes Would you like additional Smoking Cessation Counseling?: Yes Immunization / Flu Flu Vaccine in the Last 12 Months: No Flu Vaccine Exclusion Criteria: No Exclusion Criteria Past Medical History Past Medical History CARDIAC: Positive Hypercholesterolemia and Hypertension; Negative Congestive Heart Failure RESPIRATORY: Negative Chronic Obstructive Pulmonary Disease (COPD) GASTROINTESTINAL: Positive Gastroesophageal Reflux Disease GENITOURINARY: Negative Renal Disease ENDOCRINE: Positive Endocrine Disorders and Diabetes Mellitus Type 2; Negative Diabetes Mellitus Type 1 PSYCHO/SOCIAL: Positive Psychiatric Problems, Bipolar Disorder, Attention Deficit Hyperactivity Disorder and Post Traumatic Stress Disorder Surgical History SURGICAL: Positive Abdominal Surgery Social History SMOKING STATUS: Smoking status: Current every day smoker ALCOHOL: Alcohol Intake: Never Patient Portal Questionaires Social History Tobacco History Smoking Status: Current every day smoker Alcohol History Alcohol Intake: Never Domestic Abuse History Do You Feel Safe at Home: Yes Review of Systems Report any current symptoms Only answer those that you have currently: Past Medical History Past Medical History Have you ever been diagnosed with any of the following: Cardiology Problems Hypercholesterolemia: Yes Congestive Heart Failure: No Hypertension: Yes Respiratory Problems Chronic Obstructive Pulmonary Disease (COPD): No Stomache/Intestinal Problems Gastroesophageal Reflux Disease: Yes Genital/Urinary Problems Renal Disease: No Endocrine Problems Diabetes Mellitus Type 1: No Diabetes Mellitus Type 2: Yes Psychologic Problems Bipolar Disorder: Yes Attention Deficit Hyperactivity Disorder: Yes Post Traumatic Stress Disorder: Yes History of Present Illness HPI Narrative 59 yo F here for ED follow up and cold symptoms. Was in the ED a few days ago due to abdominal pain. CT showed some mild to mod lili hydronephrosis w cystitis pattern. Also has triglycerides >4K. No signs of pancreatitis. Today complains of chest congestion and sore throat. Denies any other symptoms today. 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 Sensation grossly intact. Assessment & Plan Diagnosis / Problem List (1) UTI (urinary tract infection): Status: Acute Assessment & Plan: Complains of urgency and pain upon urination Ucx was negative Likely cystitis Mild hydronephrosis Plan: -start levaquin 750mg PO QD for 7 days (2) High triglycerides: Status: Acute Assessment & Plan: Recent labs showed trig >4K Plan: -started fenofibrate 160mg PO QD -stop pravastatin -start rosuvastatin 10mg -repeat labs -f/u with labs in 1 week (3) Hyperlipidemia: Status: Acute Assessment & Plan: see above Plan: see above Physician Billing Established Patient Established Patient: E/M Level 4-CPT 11705 Office Procedures [facility] Level of Care Nursing/Assessment Patient Status: Established Patient Nursing Assessment/Reassessment: Medication Reconciliation, Update PMH in EMR and Vital Signs Coordination of Care: Complex Care and Chronic Disease 1-5, Consent,records obtained, informed consent, Education Simp Pt/Fam and Staff clarify orders Established Patient Charge Established Patient Point Assignment: 85 Established Patient Point Charge: Level 3 (80-115)
== END 2024-07-08 09:25 | disposition home or self-care (01) ==
LOC: HODAHC 08:55
PROVIDERS: Supervising Provider Internal Medicine; Visit Provider Student in an Organized Health Care Education/Training Program
DX: N13.6 Pyonephrosis (principal); E78.1 Pure hyperglyceridemia
CPT/HCPCS: 99213; G0463

== ENCOUNTER 2024-07-16 09:36 | Outpatient (AMB) | payer MEDICARE, MEDICAID, SELFPAY ==
[2024-07-16 09:43] VITALS: BP 118/65; PULSE 85; RESP 18; TEMP 36.8; O2SAT 93; BMI 36.2
--- NOTE | 2024-07-16 09:43 | ACNOTE_ITS ---
Vital Signs 07/16/24 09:43 Height 1.68 m Height Method Stated Weight 102.228 kg Weight Measurement Method Standing Scale BMI 36.2 BP 118/65 Blood Pressure Source Automatic Cuff Blood Pressure Location Right Upper Arm Position Sitting Respiration 18 Pulse 85 Pulse Source Monitor Temp 98.2 F Temp Source Temporal Artery Scan Pulse Oximetry (%) 93 L Oxygen Delivery Method Room Air Allergies/Meds Allergies & Medications Allergies No Known Allergies Allergy (Verified 07/16/24 09:44) Medication Reconciliation citalopram 40 mg tablet 40 mg PO QDAY 02/17/24 [History Confirmed 07/16/24] empagliflozin 25 mg tablet (Jardiance) 25 mg PO QDAY 02/17/24 [History Confirmed 07/16/24] ezetimibe 10 mg tablet 10 mg PO QDAY 02/17/24 [History Confirmed 07/16/24] fluconazole 150 mg tablet 150 mg PO QDAY #2 tabs 02/17/24 [Rx Confirmed 07/16/24] lisinopril 5 mg tablet 5 mg PO QDAY 02/17/24 [History Confirmed 07/16/24] nystatin 100,000 unit/gram topical cream 1 applic topical QDAY #30 grams 02/17/24 [Rx Confirmed 07/16/24] olanzapine 20 mg tablet 20 mg PO QPM 02/17/24 [History Confirmed 07/16/24] olanzapine 5 mg tablet 5 mg PO QHS 02/17/24 [History Confirmed 07/16/24] omeprazole 40 mg capsule,delayed release 40 mg PO QDAY 02/17/24 [History Confirmed 07/16/24] pantoprazole 40 mg granules delayed-release for susp in packet 40 mg PO QDAY 02/17/24 [History Confirmed 07/16/24] fluconazole 150 mg tablet 150 mg PO QDAY #2 tabs 04/08/24 [Rx Confirmed 07/16/24] blood-glucose meter #1 ea 04/28/24 [Rx Confirmed 07/16/24] dicyclomine 10 mg capsule 10 mg PO BID PRN abdominal pain #30 caps 04/28/24 [Rx Confirmed 07/16/24] lancets 31 gauge #100 ea 04/28/24 [Rx Confirmed 07/16/24] blood-glucose meter (Accu-Chek Guide Glucose Meter) #1 ea 05/04/24 [Rx Confirmed 07/16/24] bupropion HCl 150 mg tablet,12 hr sustained-release 150 mg PO QAM #30 ea 05/25/24 [Rx Confirmed 07/16/24] tirzepatide 2.5 mg/0.5 mL subcutaneous pen injector 2.5 mg (0.5 mL) subcut QWEEK #2 mL 05/25/24 [Rx Confirmed 07/16/24] gabapentin 800 mg tablet 1,600 mg (2 x 800 mg) PO BID #120 tabs 06/24/24 [Rx Confirmed 07/16/24] loperamide 2 mg capsule 2 mg PO Q6H PRN loose stool #30 caps 06/29/24 [Rx Confirmed 07/16/24] albuterol sulfate 90 mcg/actuation aerosol inhaler 1 inh inhalation QID PRN shortness of breath or wheezing #8.5 grams 07/08/24 [Rx Confirmed 07/16/24] levofloxacin 750 mg tablet 750 mg PO QDAY #7 tabs 07/08/24 [Rx Confirmed 07/16/24] rosuvastatin 10 mg tablet 10 mg PO QDAY #30 tabs 07/08/24 [Rx Confirmed 07/16/24] azithromycin 250 mg tablet See Rx Instructions PO .COMPLEX #6 tabs 07/10/24 [Rx Confirmed 07/16/24] acetaminophen 500 mg capsule 500 mg PO BID PRN fever or pain #60 caps 07/16/24 [Rx] albuterol sulfate 1.25 mg/3 mL solution for nebulization 1.25 mg (3 mL) inhalation QID PRN shortness of breath or wheezing #75 mL 07/16/24 [Rx] amoxicillin 500 mg-potassium clavulanate 125 mg tablet (Augmentin) 1 tab PO TID 5 days #15 tabs 07/16/24 [Rx] colloidal oatmeal 2 % lotion (Sarna Eczema Relief) 1 ea topical QID PRN pain/itching #222 mL 07/16/24 [Rx] dextromethorphan HBr 10 mg/5 mL oral liquid 10 mg (5 mL) PO Q6H PRN cough #118 mL 07/16/24 [Rx] fenofibrate 160 mg tablet 160 mg PO QDAY #30 tabs 07/16/24 [Rx] hydrocodone 5 mg-acetaminophen 325 mg tablet 1 tab PO Q6H PRN pain 1 month #120 tabs 07/16/24 [Rx] insulin NPH isoph U-100 human 100 unit/mL (3 mL) subcutaneous pen (Novolin N FlexPen) 25 unit (0.25 mL) subcut QID #15 mL 07/16/24 [Rx] lancets (Accu-Chek Softclix Lancets) #200 ea 07/16/24 [Rx] curzpa-rdyvstem-xujvwcc 24,000-76,000-120,000 unit capsule,delayed rel (Creon) 1 cap PO QID #120 caps 07/16/24 [Rx] metformin 1,000 mg tablet 1,000 mg PO BID #60 tabs 07/16/24 [Rx] MA Intake Visit Data Collection New Patient or Established: Established Patient (seen at [facility] within 3 years) Seen by Clinical Staff ONLY (RN/MA): No Pain Present Currently: No Pain scale:: 0 Pain Scale Used: Dunn-Aguilar/Numerical Vice Principal Required: No PCP or OBGYN visit in last 3 months: No Hx Now: No Do You Feel Safe at Home: Yes Authorities Contacted: N/A Smoking Status Smoking Status: Never smoker Immunization / Flu Flu Vaccine in the Last 12 Months: No Flu Vaccine Exclusion Criteria: No Exclusion Criteria Past Medical History Past Medical History CARDIAC: Positive Hypercholesterolemia and Hypertension; Negative Congestive Heart Failure RESPIRATORY: Negative Chronic Obstructive Pulmonary Disease (COPD) GASTROINTESTINAL: Positive Gastroesophageal Reflux Disease GENITOURINARY: Negative Renal Disease ENDOCRINE: Positive Endocrine Disorders and Diabetes Mellitus Type 2; Negative Diabetes Mellitus Type 1 PSYCHO/SOCIAL: Positive Psychiatric Problems, Bipolar Disorder, Attention Deficit Hyperactivity Disorder and Post Traumatic Stress Disorder Surgical History SURGICAL: Positive Abdominal Surgery Social History SMOKING STATUS: Smoking status: Never smoker ALCOHOL: Alcohol Intake: Never Patient Portal Questionaires Social History Tobacco History Smoking Status: Never smoker Alcohol History Alcohol Intake: Never Domestic Abuse History Do You Feel Safe at Home: Yes Review of Systems Report any current symptoms Only answer those that you have currently: Past Medical History Past Medical History Have you ever been diagnosed with any of the following: Cardiology Problems Hypercholesterolemia: Yes Congestive Heart Failure: No Hypertension: Yes Respiratory Problems Chronic Obstructive Pulmonary Disease (COPD): No Stomache/Intestinal Problems Gastroesophageal Reflux Disease: Yes Genital/Urinary Problems Renal Disease: No Endocrine Problems Diabetes Mellitus Type 1: No Diabetes Mellitus Type 2: Yes Psychologic Problems Bipolar Disorder: Yes Attention Deficit Hyperactivity Disorder: Yes Post Traumatic Stress Disorder: Yes History of Present Illness HPI Narrative 59-year-old female coming in with complaints of shortness of breath, coughing, congestion, pleuritis, and fevers this morning and feeling generalized weakness and will presented to [facility] clinic for refills as well as evaluation. Patient states that she has been feeling sick for about 1 week already, was recently treated for possible pneumonia with azithromycin, patient states she still feels sick today. Patient also suffers from fibromyalgia which could also contribute to generalized weakness/pain. Patient also reports right ear pain. Objective/Exam Narrative Physical exam: Constitutional: AOx3, able to speak full sentences HEENT: NC/AT, PERRLA, oral mucosa moist, neck supple, mild enderness to palpation of anterior cervical lymph nodes. CVS: RRR, S1-S2 present, no murmurs RESP: Chest clear to auscultation, no wheezing or rhonchi. GI: non distended, non tender to palpation, NBS MSK: full ROM, no peripheral edema, mild tenderness on palpation of the right paraspinal muscle T12 level. Skin: warm and dry, no rashes Neuro: cook specialty foreign food II-XII grossly intact. Sensation grossly intact. Assessment & Plan Diagnosis / Problem List (1) Pneumonia: Status: Acute Qualifiers: Pneumonia type: due to unspecified organism Laterality: unspecified laterality Lung location: unspecified part of lung Qualified Code(s): J18.9 - Pneumonia, unspecified organism Assessment & Plan: Patient complaining of shortness of breath, pleuritis, and fever earlier this morning. Recent antibiotic seem to not help as much although there is some clearing on physical exam compared to previous examination. Plan: Patient will be given Augmentin for 5 days, consult to go to ED should she develop shortness of breath or does not get better soon. Order chest x-ray to assess for any signs of pneumonia. (2) High triglycerides: Status: Acute Assessment & Plan: Patient with history of hyperlipidemia with high triglycerides Plan: Continue ezetimibe and fenofibrate. (3) Fibromyalgia: Status: Acute Assessment & Plan: Patient complains of generalized pain and weakness. Plan: Continue [place], acetaminophen, and started on Sarna cream. (4) Diabetes mellitus type II, controlled: Status: Acute Qualifiers: Diabetes mellitus buttermaker helper insulin use: unspecified retirement insulin use status Diabetes mellitus complication status: with neurologic complications Diabetes mellitus complication detail: with unspecified neuropathy Qualified Code(s): E11.40 - Type 2 diabetes mellitus with diabetic neuropathy, unspecified Assessment & Plan: Patient with history of type 2 diabetes mellitus. Plan: Continue insulin. Continue metformin 1000 twice daily. Refilled lancets. Plan Patient has a follow-up appointment on Saturday, July 20. Patient counseled to go to ED or call in ambulance if she develops shortness of breath or does not get better within 2 days. Orders: Orders XR chest 2V Today J45.909 - Unspecified asthma, uncomplicated, R05.9 - Cough, unspecified Office Procedures [facility] Level of Care Nursing/Assessment Patient Status: Established Patient Nursing Assessment/Reassessment: Medication Reconciliation, Update PMH in EMR and Vital Signs Coordination of Care: Complex Care and Chronic Disease 1-5, Consent,records obtained, informed consent, Education Simp Pt/Fam, Lab and Imaging orders and Staff clarify orders Established Patient Charge Established Patient Point Assignment: 100 Established Patient Point Charge: Level 3 (80-115)
== END 2024-07-16 11:22 | disposition home or self-care (01) ==
LOC: HODAHC 09:36
PROVIDERS: Supervising Provider Internal Medicine; Visit Provider Student in an Organized Health Care Education/Training Program
DX: H92.01 Otalgia, right ear (principal); R06.02 Shortness of breath; R05.9 Cough, unspecified; R50.9 Fever, unspecified; M79.7 Fibromyalgia; Z76.0 Encounter for issue of repeat prescription; E11.9 Type 2 diabetes mellitus without complications; Z79.4 Long term (current) use of insulin; Z79.84 Long term (current) use of oral hypoglycemic drugs; E78.1 Pure hyperglyceridemia
CPT/HCPCS: 99213; G0463

== ENCOUNTER 2024-07-20 10:06 | Outpatient (AMB) | payer MEDICARE, MEDICAID, SELFPAY ==
[2024-07-20 10:22] VITALS: BP 120/62; PULSE 94; RESP 18; TEMP 36.2; O2SAT 98; BMI 36.5
--- NOTE | 2024-07-20 10:22 | PD.RESCLINIC ---
Vital Signs 07/20/24 10:22 Height 1.68 m Height Method Stated Weight 103.136 kg Weight Measurement Method Standing Scale BMI 36.5 BP 120/62 Blood Pressure Source Automatic Cuff Blood Pressure Location Left Upper Arm Position Sitting Respiration 18 Pulse 94 Pulse Source Monitor Temp 97.2 F Temp Source Oral Pulse Oximetry (%) 98 Oxygen Delivery Method Room Air Allergies/Meds Allergies & Medications Allergies No Known Allergies Allergy (Verified 07/20/24 10:23) Medication Reconciliation citalopram 40 mg tablet 40 mg PO QDAY 02/17/24 [History Confirmed 07/20/24] empagliflozin 25 mg tablet (Jardiance) 25 mg PO QDAY 02/17/24 [History Confirmed 07/20/24] fluconazole 150 mg tablet 150 mg PO QDAY #2 tabs 02/17/24 [Rx Confirmed 07/20/24] lisinopril 5 mg tablet 5 mg PO QDAY 02/17/24 [History Confirmed 07/20/24] nystatin 100,000 unit/gram topical cream 1 applic topical QDAY #30 grams 02/17/24 [Rx Confirmed 07/20/24] olanzapine 20 mg tablet 20 mg PO QPM 02/17/24 [History Confirmed 07/20/24] olanzapine 5 mg tablet 5 mg PO QHS 02/17/24 [History Confirmed 07/20/24] omeprazole 40 mg capsule,delayed release 40 mg PO QDAY 02/17/24 [History Confirmed 07/20/24] pantoprazole 40 mg granules delayed-release for susp in packet 40 mg PO QDAY 02/17/24 [History Confirmed 07/20/24] fluconazole 150 mg tablet 150 mg PO QDAY #2 tabs 04/08/24 [Rx Confirmed 07/20/24] blood-glucose meter #1 ea 04/28/24 [Rx Confirmed 07/20/24] dicyclomine 10 mg capsule 10 mg PO BID PRN abdominal pain #30 caps 04/28/24 [Rx Confirmed 07/20/24] lancets 31 gauge #100 ea 04/28/24 [Rx Confirmed 07/20/24] blood-glucose meter (Accu-Chek Guide Glucose Meter) #1 ea 05/04/24 [Rx Confirmed 07/20/24] bupropion HCl 150 mg tablet,12 hr sustained-release 150 mg PO QAM #30 ea 05/25/24 [Rx Confirmed 07/20/24] tirzepatide 2.5 mg/0.5 mL subcutaneous pen injector 2.5 mg (0.5 mL) subcut QWEEK #2 mL 05/25/24 [Rx Confirmed 07/20/24] gabapentin 800 mg tablet 1,600 mg (2 x 800 mg) PO BID #120 tabs 06/24/24 [Rx Confirmed 07/20/24] loperamide 2 mg capsule 2 mg PO Q6H PRN loose stool #30 caps 06/29/24 [Rx Confirmed 07/20/24] levofloxacin 750 mg tablet 750 mg PO QDAY #7 tabs 07/08/24 [Rx Confirmed 07/20/24] rosuvastatin 10 mg tablet 10 mg PO QDAY #30 tabs 07/08/24 [Rx Confirmed 07/20/24] azithromycin 250 mg tablet See Rx Instructions PO .COMPLEX #6 tabs 07/10/24 [Rx Confirmed 07/20/24] acetaminophen 500 mg capsule 500 mg PO BID PRN fever or pain #60 caps 07/16/24 [Rx Confirmed 07/20/24] amoxicillin 500 mg-potassium clavulanate 125 mg tablet (Augmentin) 1 tab PO TID 5 days #15 tabs 07/16/24 [Rx Confirmed 07/20/24] colloidal oatmeal 2 % lotion (Sarna Eczema Relief) 1 ea topical QID PRN pain/itching #222 mL 07/16/24 [Rx Confirmed 07/20/24] fenofibrate 160 mg tablet 160 mg PO QDAY #30 tabs 07/16/24 [Rx Confirmed 07/20/24] hydrocodone 5 mg-acetaminophen 325 mg tablet 1 tab PO Q6H PRN pain 1 month #120 tabs 07/16/24 [Rx Confirmed 07/20/24] insulin NPH isoph U-100 human 100 unit/mL (3 mL) subcutaneous pen (Novolin N FlexPen) 25 unit (0.25 mL) subcut QID #15 mL 07/16/24 [Rx Confirmed 07/20/24] lancets (Accu-Chek Softclix Lancets) #200 ea 07/16/24 [Rx Confirmed 07/20/24] hnrfef-cqshczfk-fgemrqp 24,000-76,000-120,000 unit capsule,delayed rel (Creon) 1 cap PO QID #120 caps 07/16/24 [Rx Confirmed 07/20/24] metformin 1,000 mg tablet 1,000 mg PO BID #60 tabs 07/16/24 [Rx Confirmed 07/20/24] promethazine-DM 6.25 mg-15 mg/5 mL oral syrup 5 ml PO Q6H PRN cough #118 mL 07/16/24 [Rx Confirmed 07/20/24] albuterol sulfate 1.25 mg/3 mL solution for nebulization 1.25 mg (3 mL) inhalation QID PRN shortness of breath or wheezing #75 mL 07/17/24 [Rx Confirmed 07/20/24] albuterol sulfate 90 mcg/actuation aerosol inhaler 1 inh inhalation QID PRN shortness of breath or wheezing #8.5 grams 07/20/24 [Rx] ezetimibe 10 mg tablet 10 mg PO QDAY #30 tabs 07/20/24 [Rx] MA Intake Visit Data Collection New Patient or Established: Established Patient (seen at [facility] within 3 years) Seen by Clinical Staff ONLY (RN/MA): No Pain Present Currently: Yes Pain scale:: 7 Pain Scale Used: Dunn-Aguilar/Numerical Journeyman Pipe Fitter Required: No PCP or OBGYN visit in last 3 months: Yes Date of Last PCP or OBGYN visit: 07/16/24 Hx Now: No Do You Feel Safe at Home: Yes Authorities Contacted: N/A Smoking Status Smoking Status: Never smoker Immunization / Flu Flu Vaccine in the Last 12 Months: No Flu Vaccine Exclusion Criteria: No Exclusion Criteria Past Medical History Past Medical History CARDIAC: Positive Hypercholesterolemia and Hypertension; Negative Congestive Heart Failure RESPIRATORY: Negative Chronic Obstructive Pulmonary Disease (COPD) GASTROINTESTINAL: Positive Gastroesophageal Reflux Disease GENITOURINARY: Negative Renal Disease ENDOCRINE: Positive Endocrine Disorders and Diabetes Mellitus Type 2; Negative Diabetes Mellitus Type 1 PSYCHO/SOCIAL: Positive Psychiatric Problems, Bipolar Disorder, Attention Deficit Hyperactivity Disorder and Post Traumatic Stress Disorder Surgical History SURGICAL: Positive Abdominal Surgery Social History SMOKING STATUS: Smoking status: Never smoker ALCOHOL: Alcohol Intake: Never Patient Portal Questionaires PHQ-9 PHQ-2 Over the last 2 weeks, how often have you been bothered by any of the following problems? 1. Little interest or pleasure in doing things: not at all 2. Feeling down, depressed, or hopeless: not at all Total score: 0 PHQ-9 3. Trouble falling or staying asleep, or sleeping too much: Not at all 4. Feeling tired or having little energy: Not at all 5. Poor appetite or overeating: Not at all 6. Feeling bad about yourself - or that you are a failure or have let yourself or your family down: Not at all 7. Trouble concentrating on things, such as reading the newspaper or watching television: Not at all 8. Moving or speaking so slowly that other people could have noticed? - Or the opposite - being so fidgety or restless that you have been moving around a lot more than usual: not at all 9. Thoughts that you would be better off or of hurting yourself in some way: Not at all Total score: 0 If you checked off any problems, how difficult have these problems made it for you to do your work, take care of things at home, or get along with other people?: not difficult at all Source: Developed by Drs. Scott Obando, Niya Powell, Christian Love and colleagues, with an educational garry from [employer]. Depression screen completed yes Social History Tobacco History Smoking Status: Never smoker Alcohol History Alcohol Intake: Never Domestic Abuse History Do You Feel Safe at Home: Yes Review of Systems Report any current symptoms Only answer those that you have currently: Past Medical History Past Medical History Have you ever been diagnosed with any of the following: Cardiology Problems Hypercholesterolemia: Yes Congestive Heart Failure: No Hypertension: Yes Respiratory Problems Chronic Obstructive Pulmonary Disease (COPD): No Stomache/Intestinal Problems Gastroesophageal Reflux Disease: Yes Genital/Urinary Problems Renal Disease: No Endocrine Problems Diabetes Mellitus Type 1: No Diabetes Mellitus Type 2: Yes Psychologic Problems Bipolar Disorder: Yes Attention Deficit Hyperactivity Disorder: Yes Post Traumatic Stress Disorder: Yes History of Present Illness HPI Narrative Patient is a 59 year old female with a past medical history of hypertension, 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 07/20/2024: Patient seen and examined in clinic, presented for follow-up after pneumonia treatment. Patient completed course of antibiotics, reports symptomatic improvement. Denies fever, chills, cough, shortness of breath, does endorse mild sore throat. Lungs clear on examination. Patient also requested refill medications, provided. Patient requesting referrals for multimedia editor closer to home, current multimedia editor in [place]. Patient requested referral for systems integration manager and neurologist. Review of Systems Review of Systems Systems Reviewed: All systems reviewed, normal except as documented Objective/Exam Narrative Physical exam: PE: Gen: Well-developed and well-nourished. Obese. HEENT: NCAT, PERRLA, EOMI, MMM, anicteric conjunctivae. CVS: normal S1 and S2. RRR. No M/R/G. Resp: CTA B/L. No rhonchi, rales, crackles or wheezing. Abd: soft, non-tender, non-distended. BS+ in all 4 quadrants. MSK: Good ROM in BUE & BLE. No edema or rash. Neuro: CN II-XII grossly intact. Strength 5/5 in BUE & BLE. Alert and oriented x3. Psych: appropriate mood and affect. Assessment & Plan Diagnosis / Problem List (1) High triglycerides: Status: Acute Assessment & Plan: Patient with history of hyperlipidemia with high triglycerides Plan: Continue ezetimibe and fenofibrate. Plan to follow-up in 2 weeks with new labs (2) Diabetes mellitus type II, controlled: Status: Acute Qualifiers: Diabetes mellitus shelter insulin use: unspecified terminal operations supervisor insulin use status Diabetes mellitus complication status: with neurologic complications Diabetes mellitus complication detail: with unspecified neuropathy Qualified Code(s): E11.40 - Type 2 diabetes mellitus with diabetic neuropathy, unspecified Assessment & Plan: Patient with history of type 2 diabetes mellitus. Plan: Continue insulin. Continue metformin 1000 twice daily. Placed referral for Dr. Ingram in [place] Placed referral with [facility] ophthalmology (3) Memory impairment: Status: Acute Assessment & Plan: Patient recently seen in the ED, apparently was told that she had memory deficits and required official neurological evaluation Plan: Referral placed to Dr. Juarez (4) Pneumonia: Status: Acute Qualifiers: Pneumonia type: due to unspecified organism Laterality: unspecified laterality Lung location: unspecified part of lung Qualified Code(s): J18.9 - Pneumonia, unspecified organism Assessment & Plan: Patient recently treated for pneumonia. Completed antibiotic course, systemic improvement. Plan: No further treatment at this time, resolved Orders: Referrals Neurology R41.3 - Other amnesia Ophthalmology E11.9 - Type 2 diabetes mellitus without complications Endocrinology E11.40 - Type 2 diabetes mellitus with diabetic neuropathy, unspecified Additional Assessment Plan of care discussed with attending Dr. Valentin. Eduard Cuadra MD PGY?1 Office Procedures [facility] Level of Care Nursing/Assessment Patient Status: Established Patient Nursing Assessment/Reassessment: Medication Reconciliation, Update PMH in EMR and Vital Signs Coordination of Care: Complex Care/Chronic Disease 5 or more, Education Simp Pt/Fam, Lab and Imaging orders, Ref for ancillary service and Staff clarify orders Established Patient Charge Established Patient Point Assignment: 125 Established Patient Point Charge: EP Level 4 (120-155) TB Screening LTBI Screening: Has patient traveled, was born, or resided for at least 1 month, or frequent border crossing into a country with an elevated TB rate: No Immunosuppression, current or planned (HIV, organ transplant, treated with biologic agents, steroids, or other immunosuppression medication): No Close contact to someone with infectious TB disease during lifetime: No Homelessness or incarceration, current or past: No TB testing indicated at this time (at least 1 yes above): No
== END 2024-07-20 10:55 | disposition home or self-care (01) ==
LOC: HODAHC 10:06
PROVIDERS: Supervising Provider Internal Medicine
DX: E78.1 Pure hyperglyceridemia (principal); E11.40 Type 2 diabetes mellitus with diabetic neuropathy, unspecified; Z79.4 Long term (current) use of insulin; Z87.01 Personal history of pneumonia (recurrent); Z79.84 Long term (current) use of oral hypoglycemic drugs; R41.3 Other amnesia
CPT/HCPCS: 99214; G0463

== ENCOUNTER 2024-08-10 09:38 | Outpatient (AMB) | payer MEDICARE, MEDICAID, SELFPAY ==
[2024-08-10 10:02] VITALS: BP 115/75; PULSE 84; RESP 18; TEMP 36.4; O2SAT 96; BMI 35.2
--- NOTE | 2024-08-10 10:02 | ACNOTE_ITS ---
Vital Signs 08/10/24 10:02 Height 1.68 m Height Method Stated Weight 99.393 kg Weight Measurement Method Standing Scale BMI 35.2 BP 115/75 Blood Pressure Source Automatic Cuff Blood Pressure Location Right Upper Arm Position Sitting Respiration 18 Pulse 84 Pulse Source Monitor Temp 97.6 F Temp Source Temporal Artery Scan Pulse Oximetry (%) 96 Oxygen Delivery Method Room Air Allergies/Meds Allergies & Medications Allergies No Known Allergies Allergy (Verified 08/10/24 10:03) Medication Reconciliation empagliflozin 25 mg tablet (Jardiance) 25 mg PO QDAY 02/17/24 [History Confirmed 08/10/24] lisinopril 5 mg tablet 5 mg PO QDAY 02/17/24 [History Confirmed 08/10/24] olanzapine 20 mg tablet 20 mg PO QPM 02/17/24 [History Confirmed 08/10/24] olanzapine 5 mg tablet 5 mg PO QHS 02/17/24 [History Confirmed 08/10/24] omeprazole 40 mg capsule,delayed release 40 mg PO QDAY 02/17/24 [History Confirmed 08/10/24] blood-glucose meter #1 ea 04/28/24 [Rx Confirmed 08/10/24] lancets 31 gauge #100 ea 04/28/24 [Rx Confirmed 08/10/24] blood-glucose meter (Accu-Chek Guide Glucose Meter) #1 ea 05/04/24 [Rx Confirmed 08/10/24] bupropion HCl 150 mg tablet,12 hr sustained-release 150 mg PO QAM #30 ea 05/25/24 [Rx Confirmed 08/10/24] gabapentin 800 mg tablet 1,600 mg (2 x 800 mg) PO BID #120 tabs 06/24/24 [Rx Confirmed 08/10/24] loperamide 2 mg capsule 2 mg PO Q6H PRN loose stool #30 caps 06/29/24 [Rx Confirmed 08/10/24] colloidal oatmeal 2 % lotion (Sarna Eczema Relief) 1 ea topical QID PRN pain/itching #222 mL 07/16/24 [Rx Confirmed 08/10/24] lancets (Accu-Chek Softclix Lancets) #200 ea 07/16/24 [Rx Confirmed 08/10/24] naupch-xcwkkryv-fxvibys 24,000-76,000-120,000 unit capsule,delayed rel (Creon) 1 cap PO QID #120 caps 07/16/24 [Rx Confirmed 08/10/24] metformin 1,000 mg tablet 1,000 mg PO BID #60 tabs 07/16/24 [Rx Confirmed 08/10/24] albuterol sulfate 1.25 mg/3 mL solution for nebulization 1.25 mg (3 mL) inhalation QID PRN shortness of breath or wheezing #75 mL 07/17/24 [Rx Confirmed 08/10/24] ezetimibe 10 mg tablet 10 mg PO QDAY #30 tabs 07/20/24 [Rx Confirmed 08/10/24] clonazepam 2 mg tablet 2 mg PO QDAY 1 month #30 tabs 07/31/24 [Rx Confirmed 08/10/24] albuterol sulfate 90 mcg/actuation aerosol inhaler 1 inh inhalation QID PRN shortness of breath or wheezing #8.5 grams 08/10/24 [Rx] fenofibrate 160 mg tablet 160 mg PO QDAY 1 month #30 tabs 08/10/24 [Rx] hydrocodone 5 mg-acetaminophen 325 mg tablet 1 tab PO Q6H PRN pain 1 month #120 tabs 08/10/24 [Rx] insulin NPH isoph U-100 human 100 unit/mL (3 mL) subcutaneous pen (Novolin N FlexPen) 25 unit (0.25 mL) subcut QID #15 mL 08/10/24 [Rx] nystatin 100,000 unit/gram topical cream 1 applic topical QDAY #30 grams 08/10/24 [Rx] rosuvastatin 10 mg tablet 10 mg PO QDAY 1 month #30 tabs 08/10/24 [Rx] tirzepatide 5 mg/0.5 mL subcutaneous pen injector 5 mg (0.5 mL) subcut QWEEK 1 month #2 mL 08/10/24 [Rx] MA Intake Visit Data Collection New Patient or Established: Established Patient (seen at [facility] within 3 years) Seen by Clinical Staff ONLY (RN/MA): No Pain Present Currently: No Pain scale:: 0 Pain Scale Used: Dunn-Aguilar/Numerical Printing Grey Cloth Tender Required: No PCP or OBGYN visit in last 3 months: No Hx Now: No Do You Feel Safe at Home: Yes Authorities Contacted: N/A Smoking Status Smoking Status: Never smoker Immunization / Flu Flu Vaccine in the Last 12 Months: No Flu Vaccine Exclusion Criteria: No Exclusion Criteria Past Medical History Past Medical History CARDIAC: Positive Hypercholesterolemia and Hypertension; Negative Congestive Heart Failure RESPIRATORY: Negative Chronic Obstructive Pulmonary Disease (COPD) GASTROINTESTINAL: Positive Gastroesophageal Reflux Disease GENITOURINARY: Negative Renal Disease ENDOCRINE: Positive Endocrine Disorders and Diabetes Mellitus Type 2; Negative Diabetes Mellitus Type 1 PSYCHO/SOCIAL: Positive Psychiatric Problems, Bipolar Disorder, Attention Deficit Hyperactivity Disorder and Post Traumatic Stress Disorder Surgical History SURGICAL: Positive Abdominal Surgery Social History SMOKING STATUS: Smoking status: Never smoker ALCOHOL: Alcohol Intake: Never Patient Portal Questionaires PHQ-9 PHQ-2 Over the last 2 weeks, how often have you been bothered by any of the following problems? 1. Little interest or pleasure in doing things: not at all PHQ-9 8. Moving or speaking so slowly that other people could have noticed? - Or the opposite - being so fidgety or restless that you have been moving around a lot more than usual: not at all Source: Developed by Drs. Scott Obando, Niya Powell, Christian Love and colleagues, with an educational garry from [employer]. Social History Tobacco History Smoking Status: Never smoker Alcohol History Alcohol Intake: Never Domestic Abuse History Do You Feel Safe at Home: Yes Review of Systems Report any current symptoms Only answer those that you have currently: Past Medical History Past Medical History Have you ever been diagnosed with any of the following: Cardiology Problems Hypercholesterolemia: Yes Congestive Heart Failure: No Hypertension: Yes Respiratory Problems Chronic Obstructive Pulmonary Disease (COPD): No Stomache/Intestinal Problems Gastroesophageal Reflux Disease: Yes Genital/Urinary Problems Renal Disease: No Endocrine Problems Diabetes Mellitus Type 1: No Diabetes Mellitus Type 2: Yes Psychologic Problems Bipolar Disorder: Yes Attention Deficit Hyperactivity Disorder: Yes Post Traumatic Stress Disorder: Yes History of Present Illness HPI Narrative Patient is a 59 year old female with a past medical history of hypertension, 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 07/20/2024: Patient seen and examined in clinic, presented for follow-up after pneumonia treatment. Patient completed course of antibiotics, reports symptomatic improvement. Denies fever, chills, cough, shortness of breath, does endorse mild sore throat. Lungs clear on examination. Patient also requested refill medications, provided. 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 Patient requested referral for industrial relations director and neurologist. 08/10/2024: Patient seen examined in clinic, presenting for routine follow-up. Patient states she recently completed course of levofloxacin for clinically pneumonia and another clinic. Patient requesting refills of multiple medications, has not yet received appointment with Dr. Ingram, has not yet received repeat labs for triglycerides. Refilled fenofibrate, Mounjaro, insulin, rosuvastatin, [place], albuterol. Reconciled med list with patient. Prescribed nystatin cream for fungal dermatitis. At this time patient denies fever, cough, nausea, vomiting. Review of Systems Review of Systems Systems Reviewed: All systems reviewed, normal except as documented Objective/Exam Narrative Physical exam: PE: Gen: Well-developed and well-nourished. Obese. HEENT: NCAT, PERRLA, EOMI, MMM, anicteric conjunctivae. CVS: normal S1 and S2. RRR. No M/R/G. Resp: CTA B/L. No rhonchi, rales, crackles or wheezing. Abd: soft, non-tender, non-distended. BS+ in all 4 quadrants. MSK: Good ROM in BUE & BLE. No edema or rash. Neuro: CN II-XII grossly intact. Strength 5/5 in BUE & BLE. Alert and oriented x3. Psych: appropriate mood and affect. Assessment & Plan Diagnosis / Problem List (1) High triglycerides: Status: Chronic Assessment & Plan: Patient with history of hyperlipidemia with high triglycerides. Recent labs in ED show triglycerides greater than 4K. Plan: Continue ezetimibe, rosuvastatin, and fenofibrate. 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 Pending appointment with Dr. Ingram in [place]. Plan: Continue insulin, Mounjaro. Continue metformin 1000 twice daily. (3) Pneumonia: Status: Resolved Qualifiers: Pneumonia type: due to unspecified organism Laterality: unspecified laterality Lung location: unspecified part of lung Qualified Code(s): J18.9 - Pneumonia, unspecified organism Assessment & Plan: Patient recently treated for pneumonia. Completed antibiotic course, systemic improvement. Plan: No further treatment at this time, resolved (4) Asthma: Status: Chronic Qualifiers: Asthma severity: mild Asthma persistence: unspecified Asthma complication type: uncomplicated Qualified Code(s): J45.909 - Unspecified asthma, uncomplicated Assessment & Plan: Patient has history of asthma treated with albuterol inhaler as needed. Patient denies any recent acute exacerbations or worsening shortness of breath. Plan: Refilled patient's albuterol inhaler. (5) Fibromyalgia: Status: Chronic Assessment & Plan: Patient has history of fibromyalgia, resistant to pain control. Plan: [place] 5 4 times daily as needed for severe pain Gabapentin 1600 mg twice daily (6) Vaginal yeast infection: Status: Acute Assessment & Plan: Patient has recurrence of vaginal yeast infection. Has had multiple issues with this in the past, responds well to nystatin ointment. Plan: Discussed proper hygiene with patient. Prescribing statin ointment. Additional Assessment Plan of care discussed with attending Dr. Valentin. Eduard Cuadra MD PGY?1 Office Procedures [facility] Level of Care Nursing/Assessment Patient Status: Established Patient Nursing Assessment/Reassessment: Medication Reconciliation, Update PMH in EMR and Vital Signs Coordination of Care: Complex Care and Chronic Disease 1-5, Consent,records obtained, informed consent, Education Simp Pt/Fam and Staff clarify orders Established Patient Charge Established Patient Point Assignment: 85 Established Patient Point Charge: Level 3 (80-115)
== END 2024-08-10 11:40 | disposition home or self-care (01) ==
LOC: HODAHC 09:38
DX: E78.1 Pure hyperglyceridemia (principal); E11.40 Type 2 diabetes mellitus with diabetic neuropathy, unspecified; Z79.4 Long term (current) use of insulin; Z79.85 Long-term (current) use of injectable non-insulin antidiabetic drugs; Z79.84 Long term (current) use of oral hypoglycemic drugs; J45.909 Unspecified asthma, uncomplicated; M79.7 Fibromyalgia; B37.31 Acute candidiasis of vulva and vagina; Z76.0 Encounter for issue of repeat prescription; E66.9 Obesity, unspecified; Z68.35 Body mass index [BMI] 35.0-35.9, adult
CPT/HCPCS: 99213; G0463

== ENCOUNTER 2024-08-26 13:59 | Outpatient (AMB) | payer MEDICARE, MEDICAID, SELFPAY ==
--- NOTE | 2024-08-31 10:12 | ACNOTE_ITS ---
Allergies/Meds Allergies & Medications Allergies No Known Allergies Allergy (Verified 09/02/24 14:43) Medication Reconciliation empagliflozin 25 mg tablet (Jardiance) 25 mg PO QDAY 02/17/24 [History Confirmed 09/02/24] lisinopril 5 mg tablet 5 mg PO QDAY 02/17/24 [History Confirmed 09/02/24] olanzapine 20 mg tablet 20 mg PO QPM 02/17/24 [History Confirmed 09/02/24] olanzapine 5 mg tablet 5 mg PO QHS 02/17/24 [History Confirmed 09/02/24] omeprazole 40 mg capsule,delayed release 40 mg PO QDAY 02/17/24 [History Confirmed 09/02/24] blood-glucose meter #1 ea 04/28/24 [Rx Confirmed 09/02/24] lancets 31 gauge #100 ea 04/28/24 [Rx Confirmed 09/02/24] blood-glucose meter (Accu-Chek Guide Glucose Meter) #1 ea 05/04/24 [Rx Confirmed 09/02/24] bupropion HCl 150 mg tablet,12 hr sustained-release 150 mg PO QAM #30 ea 05/25/24 [Rx Confirmed 09/02/24] gabapentin 800 mg tablet 1,600 mg (2 x 800 mg) PO BID #120 tabs 06/24/24 [Rx Confirmed 09/02/24] loperamide 2 mg capsule 2 mg PO Q6H PRN loose stool #30 caps 06/29/24 [Rx Confirmed 09/02/24] colloidal oatmeal 2 % lotion (Sarna Eczema Relief) 1 ea topical QID PRN pain/itching #222 mL 07/16/24 [Rx Confirmed 09/02/24] lancets (Accu-Chek Softclix Lancets) #200 ea 07/16/24 [Rx Confirmed 09/02/24] gvtuow-bejyjvnu-keqfxdd 24,000-76,000-120,000 unit capsule,delayed rel (Creon) 1 cap PO QID #120 caps 07/16/24 [Rx Confirmed 09/02/24] metformin 1,000 mg tablet 1,000 mg PO BID #60 tabs 07/16/24 [Rx Confirmed 09/02/24] albuterol sulfate 1.25 mg/3 mL solution for nebulization 1.25 mg (3 mL) inhalation QID PRN shortness of breath or wheezing #75 mL 07/17/24 [Rx Confirmed 09/02/24] ezetimibe 10 mg tablet 10 mg PO QDAY #30 tabs 07/20/24 [Rx Confirmed 09/02/24] albuterol sulfate 90 mcg/actuation aerosol inhaler 1 inh inhalation QID PRN shortness of breath or wheezing #8.5 grams 08/10/24 [Rx Confirmed 09/02/24] hydrocodone 5 mg-acetaminophen 325 mg tablet 1 tab PO Q6H PRN pain 1 month #120 tabs 08/10/24 [Rx Confirmed 09/02/24] insulin NPH isoph U-100 human 100 unit/mL (3 mL) subcutaneous pen (Novolin N FlexPen) 25 unit (0.25 mL) subcut QID #15 mL 08/10/24 [Rx Confirmed 09/02/24] nystatin 100,000 unit/gram topical cream 1 applic topical QDAY #30 grams 08/10/24 [Rx Confirmed 09/02/24] blood sugar diagnostic (Truetest Test Strips) #100 ea 08/11/24 [Rx Confirmed 09/02/24] sodium chloride 1,000 mg soluble tablet 1,000 mg PO QDAY PRN electrolyte replenishment 1 month #30 tabs 08/26/24 [Rx Confirmed 09/02/24] tirzepatide 7.5 mg/0.5 mL subcutaneous pen injector 7.5 mg (0.5 mL) subcut QWEEK 2 months #4.5 mL 08/26/24 [Rx Confirmed 09/02/24] fenofibrate 160 mg tablet 160 mg PO QDAY 1 month #90 tabs 09/02/24 [Rx] rosuvastatin 10 mg tablet 10 mg PO QDAY 1 month #90 tabs 09/02/24 [Rx] MA Intake Visit Data Collection New Patient or Established: Established Patient (seen at [facility] within 3 years) Seen by Clinical Staff ONLY (RN/MA): No Pain Present Currently: No Pain scale:: 0 Pain Scale Used: Dunn-Aguilar/Numerical Software Performance Engineer Required: No PCP or OBGYN visit in last 3 months: No Hx Now: No Do You Feel Safe at Home: Yes Authorities Contacted: N/A Smoking Status Smoking Status: Never smoker For Televisit only Telemed Video/Phone Visit: Yes Verbal consent obtained for Telemed visit?: Yes Verbal Consent witness name: WILLIAM COTTRELL MA Telemed Video/Phone visit w/Clinical Staff: 21-30 min Immunization / Flu Flu Vaccine in the Last 12 Months: No Flu Vaccine Exclusion Criteria: No Exclusion Criteria Past Medical History Past Medical History CARDIAC: Positive Hypercholesterolemia and Hypertension; Negative Congestive Heart Failure RESPIRATORY: Negative Chronic Obstructive Pulmonary Disease (COPD) GASTROINTESTINAL: Positive Gastroesophageal Reflux Disease GENITOURINARY: Negative Renal Disease ENDOCRINE: Positive Endocrine Disorders and Diabetes Mellitus Type 2; Negative Diabetes Mellitus Type 1 PSYCHO/SOCIAL: Positive Psychiatric Problems, Bipolar Disorder, Attention Deficit Hyperactivity Disorder and Post Traumatic Stress Disorder Surgical History SURGICAL: Positive Abdominal Surgery Social History SMOKING STATUS: Smoking status: Never smoker ALCOHOL: Alcohol Intake: Never Patient Portal Questionaires PHQ-9 PHQ-2 Over the last 2 weeks, how often have you been bothered by any of the following problems? 1. Little interest or pleasure in doing things: not at all PHQ-9 8. Moving or speaking so slowly that other people could have noticed? - Or the opposite - being so fidgety or restless that you have been moving around a lot more than usual: not at all Source: Developed by Drs. Scott Obando, Niya Powell, Christian Love and colleagues, with an educational garry from [employer]. Social History Tobacco History Smoking Status: Never smoker Alcohol History Alcohol Intake: Never Domestic Abuse History Do You Feel Safe at Home: Yes Review of Systems Report any current symptoms Only answer those that you have currently: Past Medical History Past Medical History Have you ever been diagnosed with any of the following: Cardiology Problems Hypercholesterolemia: Yes Congestive Heart Failure: No Hypertension: Yes Respiratory Problems Chronic Obstructive Pulmonary Disease (COPD): No Stomache/Intestinal Problems Gastroesophageal Reflux Disease: Yes Genital/Urinary Problems Renal Disease: No Endocrine Problems Diabetes Mellitus Type 1: No Diabetes Mellitus Type 2: Yes Psychologic Problems Bipolar Disorder: Yes Attention Deficit Hyperactivity Disorder: Yes Post Traumatic Stress Disorder: Yes History of Present Illness HPI Narrative Patient is a 59 year old female with a past medical history of hypertension, 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 07/20/2024: Patient seen and examined in clinic, presented for follow-up after pneumonia treatment. Patient completed course of antibiotics, reports symptomatic improvement. Denies fever, chills, cough, shortness of breath, does endorse mild sore throat. Lungs clear on examination. Patient also requested refill medications, provided. 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 Patient requested referral for new autos delivery driver and neurologist. 08/10/2024: Patient seen examined in clinic, presenting for routine follow-up. Patient states she recently completed course of levofloxacin for clinically pneu monia and another clinic. Patient requesting refills of multiple medications, has not yet received appointment with Dr. Ingram, has not yet received repeat labs for triglycerides. Refilled fenofibrate, Mounjaro, insulin, rosuvastatin, [place], albuterol. Reconciled med list with patient. Prescribed nystatin cream for fungal dermatitis. At this time patient denies fever, cough, nausea, vomiting. 08/26/24: Patient seen via telehealth visit. Reveiwed labs which showed significant improvement in hypertriglyceridemia. Will continue current medication. Patient denies abdominal pain, nausea, v[place], diarrhea, constipation. Review of Systems Review of Systems Systems Reviewed: All systems reviewed, normal except as documented Objective/Exam Narrative Physical exam: Not performed due to telehealth visit. Assessment & Plan Diagnosis / Problem List (1) High triglycerides: Status: Chronic Assessment & Plan: Patient with history of hyperlipidemia with high triglycerides. Labs in ED show triglycerides greater than 4K. Follow up labs showed significant improvement, triglycerides now in the 400's. Plan: Continue ezetimibe, rosuvastatin, and fenofibrate. Additional Assessment Plan of care discussed with attending Dr. Valentin. Eduard Cuadra MD PGY?2 Office Procedures [facility] Level of Care Nursing/Assessment Patient Status: Established Patient Nursing Assessment/Reassessment: Medication Reconciliation and Update PMH in EMR Coordination of Care: Complex Care and Chronic Disease 1-5, Consent,records obtained, informed consent, Education Simp Pt/Fam and Staff clarify orders Established Patient Charge Established Patient Point Assignment: 70 Telehealth Telemed Phone/Video with patient at home & Dr,PA,WRAPPING MACHINE TENDER: Yes
== END 2024-08-26 14:52 | disposition home or self-care (01) ==
LOC: HODAHC 13:59
PROVIDERS: Supervising Provider Internal Medicine
DX: E78.1 Pure hyperglyceridemia (principal); I10 Essential (primary) hypertension; E11.9 Type 2 diabetes mellitus without complications; Z79.4 Long term (current) use of insulin; E11.42 Type 2 diabetes mellitus with diabetic polyneuropathy; K21.9 Gastro-esophageal reflux disease without esophagitis; F43.10 Post-traumatic stress disorder, unspecified; F90.9 Attention-deficit hyperactivity disorder, unspecified type; F41.9 Anxiety disorder, unspecified; F31.9 Bipolar disorder, unspecified
CPT/HCPCS: 99212; G0463

== ENCOUNTER 2024-09-02 14:42 | Outpatient (AMB) | payer MEDICARE, MEDICAID, SELFPAY ==
--- NOTE | 2024-09-02 14:43 | ACNOTE_ITS ---
Allergies/Meds Allergies & Medications Allergies No Known Allergies Allergy (Verified 09/02/24 14:43) Medication Reconciliation empagliflozin 25 mg tablet (Jardiance) 25 mg PO QDAY 02/17/24 [History Confirmed 09/02/24] lisinopril 5 mg tablet 5 mg PO QDAY 02/17/24 [History Confirmed 09/02/24] olanzapine 20 mg tablet 20 mg PO QPM 02/17/24 [History Confirmed 09/02/24] olanzapine 5 mg tablet 5 mg PO QHS 02/17/24 [History Confirmed 09/02/24] omeprazole 40 mg capsule,delayed release 40 mg PO QDAY 02/17/24 [History Confirmed 09/02/24] blood-glucose meter #1 ea 04/28/24 [Rx Confirmed 09/02/24] lancets 31 gauge #100 ea 04/28/24 [Rx Confirmed 09/02/24] blood-glucose meter (Accu-Chek Guide Glucose Meter) #1 ea 05/04/24 [Rx Confirmed 09/02/24] bupropion HCl 150 mg tablet,12 hr sustained-release 150 mg PO QAM #30 ea 05/25/24 [Rx Confirmed 09/02/24] gabapentin 800 mg tablet 1,600 mg (2 x 800 mg) PO BID #120 tabs 06/24/24 [Rx Confirmed 09/02/24] loperamide 2 mg capsule 2 mg PO Q6H PRN loose stool #30 caps 06/29/24 [Rx Confirmed 09/02/24] colloidal oatmeal 2 % lotion (Sarna Eczema Relief) 1 ea topical QID PRN pain/itching #222 mL 07/16/24 [Rx Confirmed 09/02/24] lancets (Accu-Chek Softclix Lancets) #200 ea 07/16/24 [Rx Confirmed 09/02/24] ovlnnu-lamigkkh-nxpizsa 24,000-76,000-120,000 unit capsule,delayed rel (Creon) 1 cap PO QID #120 caps 07/16/24 [Rx Confirmed 09/02/24] metformin 1,000 mg tablet 1,000 mg PO BID #60 tabs 07/16/24 [Rx Confirmed 09/02/24] albuterol sulfate 1.25 mg/3 mL solution for nebulization 1.25 mg (3 mL) inhalation QID PRN shortness of breath or wheezing #75 mL 07/17/24 [Rx Confirmed 09/02/24] ezetimibe 10 mg tablet 10 mg PO QDAY #30 tabs 07/20/24 [Rx Confirmed 09/02/24] albuterol sulfate 90 mcg/actuation aerosol inhaler 1 inh inhalation QID PRN shortness of breath or wheezing #8.5 grams 08/10/24 [Rx Confirmed 09/02/24] hydrocodone 5 mg-acetaminophen 325 mg tablet 1 tab PO Q6H PRN pain 1 month #120 tabs 08/10/24 [Rx Confirmed 09/02/24] insulin NPH isoph U-100 human 100 unit/mL (3 mL) subcutaneous pen (Novolin N FlexPen) 25 unit (0.25 mL) subcut QID #15 mL 08/10/24 [Rx Confirmed 09/02/24] nystatin 100,000 unit/gram topical cream 1 applic topical QDAY #30 grams 08/10/24 [Rx Confirmed 09/02/24] blood sugar diagnostic (Truetest Test Strips) #100 ea 08/11/24 [Rx Confirmed 09/02/24] sodium chloride 1,000 mg soluble tablet 1,000 mg PO QDAY PRN electrolyte replenishment 1 month #30 tabs 08/26/24 [Rx Confirmed 09/02/24] tirzepatide 7.5 mg/0.5 mL subcutaneous pen injector 7.5 mg (0.5 mL) subcut QWEEK 2 months #4.5 mL 08/26/24 [Rx Confirmed 09/02/24] fenofibrate 160 mg tablet 160 mg PO QDAY 1 month #90 tabs 09/02/24 [Rx] rosuvastatin 10 mg tablet 10 mg PO QDAY 1 month #90 tabs 09/02/24 [Rx] MA Intake Visit Data Collection New Patient or Established: Established Patient (seen at [facility] within 3 years) Seen by Clinical Staff ONLY (RN/MA): No Pain Present Currently: No Pain scale:: 0 Pain Scale Used: Dunn-Aguilar/Numerical Materials Planning Manager Required: No PCP or OBGYN visit in last 3 months: No Do You Feel Safe at Home: Yes Authorities Contacted: N/A Smoking Status Smoking Status: Never smoker For Televisit only Telemed Video/Phone Visit: Yes Verbal consent obtained for Telemed visit?: Yes Verbal Consent witness name: WILLIAM COTTRELL MA Telemed Video/Phone visit w/Clinical Staff: 21-30 min Immunization / Flu Flu Vaccine in the Last 12 Months: No Flu Vaccine Exclusion Criteria: No Exclusion Criteria Past Medical History Past Medical History CARDIAC: Positive Hypercholesterolemia and Hypertension; Negative Congestive Heart Failure RESPIRATORY: Negative Chronic Obstructive Pulmonary Disease (COPD) GASTROINTESTINAL: Positive Gastroesophageal Reflux Disease GENITOURINARY: Negative Renal Disease ENDOCRINE: Positive Endocrine Disorders and Diabetes Mellitus Type 2; Negative Diabetes Mellitus Type 1 PSYCHO/SOCIAL: Positive Psychiatric Problems, Bipolar Disorder, Attention Deficit Hyperactivity Disorder and Post Traumatic Stress Disorder Surgical History SURGICAL: Positive Abdominal Surgery Social History SMOKING STATUS: Smoking status: Never smoker ALCOHOL: Alcohol Intake: Never Patient Portal Questionaires PHQ-9 PHQ-2 Over the last 2 weeks, how often have you been bothered by any of the following problems? 1. Little interest or pleasure in doing things: not at all PHQ-9 8. Moving or speaking so slowly that other people could have noticed? - Or the opposite - being so fidgety or restless that you have been moving around a lot more than usual: not at all Source: Developed by Drs. Scott Obando, Niya Powell, Christian Love and colleagues, with an educational garry from [employer]. Social History Tobacco History Smoking Status: Never smoker Alcohol History Alcohol Intake: Never Domestic Abuse History Do You Feel Safe at Home: Yes Review of Systems Report any current symptoms Only answer those that you have currently: Past Medical History Past Medical History Have you ever been diagnosed with any of the following: Cardiology Problems Hypercholesterolemia: Yes Congestive Heart Failure: No Hypertension: Yes Respiratory Problems Chronic Obstructive Pulmonary Disease (COPD): No Stomache/Intestinal Problems Gastroesophageal Reflux Disease: Yes Genital/Urinary Problems Renal Disease: No Endocrine Problems Diabetes Mellitus Type 1: No Diabetes Mellitus Type 2: Yes Psychologic Problems Bipolar Disorder: Yes Attention Deficit Hyperactivity Disorder: Yes Post Traumatic Stress Disorder: Yes History of Present Illness HPI Narrative Patient is a 59 year old female with a past medical history of hypertension, 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 07/20/2024: Patient seen and examined in clinic, presented for follow-up after pneumonia treatment. Patient completed course of antibiotics, reports symptomatic improvement. Denies fever, chills, cough, shortness of breath, does endorse mild sore throat. Lungs clear on examination. Patient also requested refill medications, provided. 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 Patient requested referral for e commerce manager and neurologist. 08/10/2024: Patient seen examined in clinic, presenting for routine follow-up. Patient states she recently completed course of levofloxacin for clinically pneumonia and another clinic. Patient requesting refills of multiple medications, has not yet received appointment with Dr. Ingram, has not yet received repeat labs for triglycerides. Refilled fenofibrate, Mounjaro, insulin, rosuvastatin, [place], albuterol. Reconciled med list with patient. Prescribed nystatin cream for fungal dermatitis. At this time patient denies fever, cough, nausea, vomiting. 08/26/24: Patient seen via telehealth visit. Reveiwed labs which showed significant improvement in hypertriglyceridemia. Will continue current medication. Patient denies abdominal pain, nausea, voming, diarrhea, constipation. 09/03/23 Patient seen via telehealth visit, requesting medication refill. Refilled patients fenofibrate and rosuvastatin. Will follow up at next scheduled visit. Review of Systems Review of Systems Systems Reviewed: All systems reviewed, normal except as documented Objective/Exam Narrative Physical exam: Not performed due to telehealth visit. Assessment & Plan Diagnosis / Problem List (1) High triglycerides: Status: Chronic Assessment & Plan: Patient with history of hyperlipidemia with high triglycerides. Labs in ED show triglycerides greater than 4K. Follow up labs showed significant improvement, triglycerides now in the 400's. Patient requesting refills on medications Plan: Continue ezetimibe, rosuvastatin, and fenofibrate. -refilled rosuvastatin and fenofibrate Additional Assessment Plan of care discussed with attending Dr. Valentin. Eduard Cuadra MD PGY?2 Office Procedures [facility] Level of Care Nursing/Assessment Patient Status: Established Patient Nursing Assessment/Reassessment: Medication Reconciliation and Update PMH in EMR Coordination of Care: Complex Care and Chronic Disease 1-5, Consent,records obtained, informed consent, Education Simp Pt/Fam and Staff clarify orders Established Patient Charge Established Patient Point Assignment: 70 Telehealth Telemed Phone/Video with patient at home & Dr,PA,OUTCOMES MANAGER: Yes
== END 2024-09-02 15:08 | disposition home or self-care (01) ==
LOC: HODAHC 14:42
PROVIDERS: Supervising Provider Internal Medicine
DX: E78.1 Pure hyperglyceridemia (principal); Z76.0 Encounter for issue of repeat prescription
CPT/HCPCS: 99212; G0463

== ENCOUNTER 2024-10-13 14:13 | Outpatient (AMB) | payer MEDICARE, MEDICAID, SELFPAY ==
[2024-10-13 14:31] VITALS: BP 112/73; PULSE 83; RESP 19; TEMP 36.6; O2SAT 93; BMI 35.4
--- NOTE | 2024-10-13 14:31 | ACNOTE_ITS ---
Vital Signs 10/13/24 14:31 Height 1.68 m Height Method Stated Weight 99.904 kg Weight Measurement Method Standing Scale BMI 35.4 BP 112/73 Blood Pressure Source Automatic Cuff Blood Pressure Location Right Upper Arm Position Sitting Respiration 19 Pulse 83 Pulse Source Monitor Temp 97.8 F Temp Source Oral Pulse Oximetry (%) 93 L Oxygen Delivery Method Room Air Allergies/Meds Allergies & Medications Allergies No Known Allergies Allergy (Verified 10/13/24 14:31) Medication Reconciliation empagliflozin 25 mg tablet (Jardiance) 25 mg PO QDAY 02/17/24 [History Confirmed 10/13/24] omeprazole 40 mg capsule,delayed release 40 mg PO QDAY 02/17/24 [History Confirmed 10/13/24] blood-glucose meter #1 ea 04/28/24 [Rx Confirmed 10/13/24] lancets 31 gauge #100 ea 04/28/24 [Rx Confirmed 10/13/24] blood-glucose meter (Accu-Chek Guide Glucose Meter) #1 ea 05/04/24 [Rx Confirmed 10/13/24] bupropion HCl 150 mg tablet,12 hr sustained-release 150 mg PO QAM #30 ea 05/25/24 [Rx Confirmed 10/13/24] gabapentin 800 mg tablet 1,600 mg (2 x 800 mg) PO BID #120 tabs 06/24/24 [Rx Confirmed 10/13/24] loperamide 2 mg capsule 2 mg PO Q6H PRN loose stool #30 caps 06/29/24 [Rx Confirmed 10/13/24] lancets (Accu-Chek Softclix Lancets) #200 ea 07/16/24 [Rx Confirmed 10/13/24] bionvd-tlfjumxa-tksdtxm 24,000-76,000-120,000 unit capsule,delayed rel (Creon) 1 cap PO QID #120 caps 07/16/24 [Rx Confirmed 10/13/24] insulin NPH isoph U-100 human 100 unit/mL (3 mL) subcutaneous pen (Novolin N FlexPen) 25 unit (0.25 mL) subcut QID #15 mL 08/10/24 [Rx Confirmed 10/13/24] nystatin 100,000 unit/gram topical cream 1 applic topical QDAY #30 grams 08/10/24 [Rx Confirmed 10/13/24] sodium chloride 1,000 mg soluble tablet 1,000 mg PO QDAY PRN electrolyte replenishment 1 month #30 tabs 08/26/24 [Rx Confirmed 10/13/24] fenofibrate 160 mg tablet 160 mg PO QDAY 1 month #90 tabs 09/02/24 [Rx Confirmed 10/13/24] rosuvastatin 10 mg tablet 10 mg PO QDAY 1 month #90 tabs 09/02/24 [Rx Confirmed 10/13/24] blood sugar diagnostic (True Metrix Glucose Test Strip) #100 ea 09/09/24 [Rx Confirmed 10/13/24] clonazepam 2 mg tablet 2 mg PO QDAY 1 month #30 tabs 09/28/24 [Rx Confirmed 10/13/24] hydrocodone 5 mg-acetaminophen 325 mg tablet 1 tab PO Q6H PRN pain 1 month #120 tabs 10/13/24 [Rx] hydrocodone 5 mg-acetaminophen 325 mg tablet 1 tab PO Q6H PRN pain 30 days #120 tabs 10/13/24 [Rx] lisinopril 5 mg tablet 5 mg PO QDAY #30 tabs 10/13/24 [Rx] olanzapine 20 mg tablet 20 mg PO QHS 10/13/24 [History Confirmed 10/13/24] olanzapine 5 mg tablet 5 mg PO QPM 10/13/24 [History Confirmed 10/13/24] simethicone 250 mg capsule (Gas Relief (simethicone)) 250 mg PO QDAY PRN abdominal distention #30 caps 10/13/24 [Rx] tirzepatide 10 mg/0.5 mL subcutaneous pen injector 10 mg (0.5 mL) subcut QWEEK #2 mL 10/13/24 [Rx] MA Intake Visit Data Collection New Patient or Established: Established Patient (seen at [facility] within 3 years) Seen by Clinical Staff ONLY (RN/MA): No Pain Present Currently: Yes Pain Location: Back Pain scale:: 10 Pain Scale Used: Dunn-Aguilar/Numerical Smoking Status Smoking Status: Never smoker Immunization / Flu Flu Vaccine in the Last 12 Months: No Flu Vaccine Exclusion Criteria: No Exclusion Criteria Past Medical History Past Medical History CARDIAC: Positive Hypercholesterolemia and Hypertension; Negative Congestive Heart Failure RESPIRATORY: Negative Chronic Obstructive Pulmonary Disease (COPD) GASTROINTESTINAL: Positive Gastroesophageal Reflux Disease GENITOURINARY: Negative Renal Disease ENDOCRINE: Positive Endocrine Disorders and Diabetes Mellitus Type 2; Negative Diabetes Mellitus Type 1 PSYCHO/SOCIAL: Positive Psychiatric Problems, Bipolar Disorder, Attention Deficit Hyperactivity Disorder and Post Traumatic Stress Disorder Surgical History SURGICAL: Positive Abdominal Surgery Social History SMOKING STATUS: Smoking status: Never smoker ALCOHOL: Alcohol Intake: Never Patient Portal Questionaires PHQ-9 PHQ-2 Over the last 2 weeks, how often have you been bothered by any of the following problems? 1. Little interest or pleasure in doing things: not at all PHQ-9 8. Moving or speaking so slowly that other people could have noticed? - Or the opposite - being so fidgety or restless that you have been moving around a lot more than usual: not at all Source: Developed by Drs. Scott Obando, Niya Powell, Christian masterson nd colleagues, with an educational garry from [employer]. Social History Tobacco History Smoking Status: Never smoker Alcohol History Alcohol Intake: Never Review of Systems Report any current symptoms Only answer those that you have currently: Past Medical History Past Medical History Have you ever been diagnosed with any of the following: Cardiology Problems Hypercholesterolemia: Yes Congestive Heart Failure: No Hypertension: Yes Respiratory Problems Chronic Obstructive Pulmonary Disease (COPD): No Stomache/Intestinal Problems Gastroesophageal Reflux Disease: Yes Genital/Urinary Problems Renal Disease: No Endocrine Problems Diabetes Mellitus Type 1: No Diabetes Mellitus Type 2: Yes Psychologic Problems Bipolar Disorder: Yes Attention Deficit Hyperactivity Disorder: Yes Post Traumatic Stress Disorder: Yes History of Present Illness HPI Narrative Patient is a 59 year old female with a past medical history of hypertension, 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 07/20/2024: Patient seen and examined in clinic, presented for follow-up after pneumonia treatment. Patient completed course of antibiotics, reports symptomatic improvement. Denies fever, chills, cough, shortness of breath, does endorse mild sore throat. Lungs clear on examination. Patient also requested refill medications, provided. 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 Patient requested referral for stock preparation operator and neurologist. 08/10/2024: Patient seen examined in clinic, presenting for routine follow-up. Patient states she recently completed course of levofloxacin for clinically pneumonia and another clinic. Patient requesting refills of multiple medications, has not yet received appointment with Dr. Ingram, has not yet received repeat labs for triglycerides. Refilled fenofibrate, Mounjaro, insulin, rosuvastatin, [place], albuterol. Reconciled med list with patient. Prescribed nystatin cream for fungal dermatitis. At this time patient denies fever, cough, nausea, vomiting. 08/26/24: Patient seen via telehealth visit. Reveiwed labs which showed significant improvement in hypertriglyceridemia. Will continue current medication. Patient denies abdominal pain, nausea, voming, diarrhea, constipation. 09/03/23 Patient seen via telehealth visit, requesting medication refill. Refilled patients fenofibrate and rosuvastatin. Will follow up at next scheduled visit. 10/13/24 Pt is here for followup; no active complaints, DM is well managed on Mounjaro 7.5 mg, Patient reports he is followed by steel wool machine operator Dr. Allison in [place], currently takes insulin NPH 25 units 4 times daily, no reported hypoglycemic events. Refilled lisinopril, requesting refills for [place] 5mg, 4 times a day. Complaining of pain in both knees, wakes up every morning feeling crippling pain. Went over medications. Assessment & Plan Diagnosis / Problem List (1) Hypertension: Status: Acute Qualifiers: Hypertension type: primary hypertension Qualified Code(s): I10 - Essential (primary) hypertension (2) Diabetes mellitus type II, controlled: Status: Chronic (3) Obesity, morbid: Status: Acute (4) Fibromyalgia: Status: Chronic Office Procedures [facility] Level of Care Nursing/Assessment Patient Status: Established Patient Nursing Assessment/Reassessment: Medication Reconciliation, Update PMH in EMR and Vital Signs Coordination of Care: Complex Care and Chronic Disease 1-5, Education Complex Pt/Fam and Staff clarify orders Established Patient Charge Established Patient Point Assignment: 85 Established Patient Point Charge: Level 3 (80-115)
== END 2024-10-13 15:22 | disposition home or self-care (01) ==
LOC: HODAHC 14:13
PROVIDERS: Supervising Provider Internal Medicine; Visit Provider Student in an Organized Health Care Education/Training Program
DX: E11.9 Type 2 diabetes mellitus without complications (principal); I10 Essential (primary) hypertension; E66.01 Morbid (severe) obesity due to excess calories; E11.42 Type 2 diabetes mellitus with diabetic polyneuropathy; M79.7 Fibromyalgia; Z79.85 Long-term (current) use of injectable non-insulin antidiabetic drugs; M25.562 Pain in left knee; M25.561 Pain in right knee
CPT/HCPCS: 99213; G0463

== ENCOUNTER 2024-11-11 14:28 | Outpatient (AMB) | payer MEDICARE, MEDICAID, SELFPAY ==
--- NOTE | 2024-11-11 14:43 | PD.RESCLINIC ---
Allergies/Meds Allergies & Medications Allergies No Known Allergies Allergy (Verified 11/11/24 14:43) Medication Reconciliation empagliflozin 25 mg tablet (Jardiance) 25 mg PO QDAY 02/17/24 [History Confirmed 11/11/24] omeprazole 40 mg capsule,delayed release 40 mg PO QDAY 02/17/24 [History Confirmed 11/11/24] blood-glucose meter #1 ea 04/28/24 [Rx Confirmed 11/11/24] lancets 31 gauge #100 ea 04/28/24 [Rx Confirmed 11/11/24] blood-glucose meter (Accu-Chek Guide Glucose Meter) #1 ea 05/04/24 [Rx Confirmed 11/11/24] bupropion HCl 150 mg tablet,12 hr sustained-release 150 mg PO QAM #30 ea 05/25/24 [Rx Confirmed 11/11/24] gabapentin 800 mg tablet 1,600 mg (2 x 800 mg) PO BID #120 tabs 06/24/24 [Rx Confirmed 11/11/24] loperamide 2 mg capsule 2 mg PO Q6H PRN loose stool #30 caps 06/29/24 [Rx Confirmed 11/11/24] lancets (Accu-Chek Softclix Lancets) #200 ea 07/16/24 [Rx Confirmed 11/11/24] insulin NPH isoph U-100 human 100 unit/mL (3 mL) subcutaneous pen (Novolin N FlexPen) 25 unit (0.25 mL) subcut QID #15 mL 08/10/24 [Rx Confirmed 11/11/24] nystatin 100,000 unit/gram topical cream 1 applic topical QDAY #30 grams 08/10/24 [Rx Confirmed 11/11/24] sodium chloride 1,000 mg soluble tablet 1,000 mg PO QDAY PRN electrolyte replenishment 1 month #30 tabs 08/26/24 [Rx Confirmed 11/11/24] fenofibrate 160 mg tablet 160 mg PO QDAY 1 month #90 tabs 09/02/24 [Rx Confirmed 11/11/24] rosuvastatin 10 mg tablet 10 mg PO QDAY 1 month #90 tabs 09/02/24 [Rx Confirmed 11/11/24] hydrocodone 5 mg-acetaminophen 325 mg tablet 1 tab PO Q6H PRN pain 30 days #120 tabs 10/13/24 [Rx Confirmed 11/11/24] olanzapine 20 mg tablet 20 mg PO QHS 10/13/24 [History Confirmed 11/11/24] olanzapine 5 mg tablet 5 mg PO QPM 10/13/24 [History Confirmed 11/11/24] simethicone 250 mg capsule (Gas Relief (simethicone)) 250 mg PO QDAY PRN abdominal distention #30 caps 10/13/24 [Rx Confirmed 11/11/24] blood sugar diagnostic (True Metrix Glucose Test Strip) #100 ea 10/14/24 [Rx Confirmed 11/11/24] mwaknz-onsmitnx-vjguirw 24,000-76,000-120,000 unit capsule,delayed rel (Creon) 1 cap PO QID #120 caps 10/23/24 [Rx Confirmed 11/11/24] lisinopril 5 mg tablet 5 mg PO QDAY #30 tabs 10/23/24 [Rx Confirmed 11/11/24] tirzepatide 10 mg/0.5 mL subcutaneous pen injector 10 mg (0.5 mL) subcut QWEEK #2 mL 10/23/24 [Rx Confirmed 11/11/24] clonazepam 2 mg tablet 2 mg PO QDAY 1 month #30 tabs 10/30/24 [Rx Confirmed 11/11/24] MA Intake Visit Data Collection New Patient or Established: Established Patient (seen at [facility] within 3 years) PCP or OBGYN visit in last 3 months: Yes Smoking Status Smoking Status: Never smoker For Televisit only Telemed Video/Phone Visit: Yes Verbal consent obtained for Telemed visit?: Yes Verbal Consent witness name: ALBA Telemed Video/Phone visit w/Clinical Staff: 21-30 min Immunization / Flu Flu Vaccine in the Last 12 Months: No Flu Vaccine Exclusion Criteria: No Exclusion Criteria Past Medical History Past Medical History CARDIAC: Positive Hypercholesterolemia and Hypertension; Negative Congestive Heart Failure RESPIRATORY: Negative Chronic Obstructive Pulmonary Disease (COPD) GASTROINTESTINAL: Positive Gastroesophageal Reflux Disease GENITOURINARY: Negative Renal Disease ENDOCRINE: Positive Endocrine Disorders and Diabetes Mellitus Type 2; Negative Diabetes Mellitus Type 1 PSYCHO/SOCIAL: Positive Psychiatric Problems, Bipolar Disorder, Attention Deficit Hyperactivity Disorder and Post Traumatic Stress Disorder Surgical History SURGICAL: Positive Abdominal Surgery Social History SMOKING STATUS: Smoking status: Never smoker ALCOHOL: Alcohol Intake: Never Patient Portal Questionaires PHQ-9 PHQ-2 Over the last 2 weeks, how often have you been bothered by any of the following problems? 1. Little interest or pleasure in doing things: not at all PHQ-9 8. Moving or speaking so slowly that other people could have noticed? - Or the opposite - being so fidgety or restless that you have been moving around a lot more than usual: not at all Source: Developed by Drs. Scott Obando, Niya Powell, Christian Love and colleagues, with an educational garry from [employer]. Social History Tobacco History Smoking Status: Never smoker Alcohol History Alcohol Intake: Never Review of Systems Report any current symptoms Only answer those that you have currently: Past Medical History Past Medical History Have you ever been diagnosed with any of the following: Cardiology Problems Hypercholesterolemia: Yes Congestive Heart Failure: No Hypertension: Yes Respiratory Problems Chronic Obstructive Pulmonary Disease (COPD): No Stomache/Intestinal Problems Gastroesophageal Reflux Disease: Yes Genital/Urinary Problems Renal Disease: No Endocrine Problems Diabetes Mellitus Type 1: No Diabetes Mellitus Type 2: Yes Psychologic Problems Bipolar Disorder: Yes Attention Deficit Hyperactivity Disorder: Yes Post Traumatic Stress Disorder: Yes History of Present Illness HPI Narrative Patient is a 59 year old female with a past medical history of hypertension, 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 07/20/2024: Patient seen and examined in clinic, presented for follow-up after pneumonia treatment. Patient completed course of antibiotics, reports symptomatic improvement. Denies fever, chills, cough, shortness of breath, does endorse mild sore throat. Lungs clear on examination. Patient also requested refill medications, provided. Patient requesting referrals for renewal specialist closer to home, current renewal specialist in [place]. Patient requested referral for rouge sifter and neurologist. 08/10/2024: Patient seen examined in clinic, presenting for routine follow-up. Patient states she recently completed course of levofloxacin for clinically pneumonia and another clinic. Patient requesting refills of multiple medications, has not yet received appointment with Dr. Ingram, has not yet received repeat labs for triglycerides. Refilled fenofibrate, Mounjaro, insulin, rosuvastatin, Dallas, albuterol. Reconciled med list with patient. Prescribed nystatin cream for fungal dermatitis. At this time patient denies fever, cough, nausea, vomiting. 08/26/24: Patient seen via telehealth visit. Reveiwed labs which showed significant improvement in hypertriglyceridemia. Will continue current medication. Patient denies abdominal pain, nausea, voming, diarrhea, constipation. 09/03/23 Patient seen via telehealth visit, requesting medication refill. Refilled patients fenofibrate and rosuvastatin. Will follow up at next scheduled visit. 10/13/24 Pt is here for followup; no active complaints, DM is well managed on Mounjaro 7.5 mg, Patient reports she is followed by renewal specialist Dr. Allison in [place], reported that she currently takes insulin NPH 25 units 4 times daily, no reported hypoglycemic events. Hba1c in 07/05 was 6.3 . will defer diabetes management to renewal specialist as per patient preferance. Refilled lisinopril, requesting refills for Dallas 5mg, 4 times a day. Complaining of pain in both knees, wakes up every morning feeling crippling pain. 11/11/2024 Patient had an appt via telehealth for medication refill. Patient stated that she did not get her prescription of Dallas last time from [facility] which was prescribed on 10/13/2024. She mentioned that she wanted the prescription to go to [facility] and [facility] would not send the prescription over. Patient was unsure if she filled it at [facility] or not and was providing confusing history on if she did or did not refill them. [facility] was verified and showed patient did refilled on 10/14/2024 for a total of 120 tablets of Dallas 5. Multiple other addresses also seen in [facility] with the patient's same last name and . Spoke with [facility] pharmacy Pharmacist Carlos who stated patient did refill her Dallas and clonazepam. At this time told patient she should still have available and she stated she did have available. Spoke with patient that Dallas dose per day is too high and that will need to see a pain specialist. Patient was reluctant, but stated she would be open to seeing the pain specialist. Also notified the patient if she did not see the pain specialist by next week to call back and will only be giving a 6-7 day supply of Dallas 5mg TID prn. Patient will also be referred to rheumatology. Review of Systems Review of Systems Systems Reviewed: All systems reviewed, normal except as documented Assessment & Plan Diagnosis / Problem List (1) Fibromyalgia: Status: Chronic Assessment & Plan: Last Dallas refilled on 10/13/2024 See HPI for today for further information. Plan: Referred to pain specialist and distribution technician. Will not refill Dallas until seen by pain specialist to manage pain medications, if has not seen a pain specialist will only prescribe 7 days of Dallas 5mg TID prn next week. Plan plan of care discussed with attending MD Tere Walters pgy 3 Orders: Referrals Referral Pain Management M79.7 - Fibromyalgia Rheumatology M79.7 - Fibromyalgia Office Procedures [facility] Level of Care Nursing/Assessment Patient Status: Established Patient Nursing Assessment/Reassessment: Medication Reconciliation, Update PMH in EMR and Vital Signs Coordination of Care: Complex Care and Chronic Disease 1-5, Education Complex Pt/Fam and Staff clarify orders Established Patient Charge Established Patient Point Assignment: 85 Telehealth Telemed Phone/Video with patient at home & ,PA,OCULAR CARE TECHNICIAN: Yes
== END 2024-11-11 15:11 | disposition home or self-care (01) ==
LOC: HODAHC 14:28
PROVIDERS: Supervising Provider Internal Medicine; Visit Provider Internal Medicine
DX: M79.7 Fibromyalgia (principal); Z76.0 Encounter for issue of repeat prescription
CPT/HCPCS: 99212; G0463

== ENCOUNTER 2024-12-02 14:42 | Outpatient (AMB) | payer MEDICARE, MEDICAID, SELFPAY ==
--- NOTE | 2024-12-02 14:43 | ACNOTE_ITS ---
Allergies/Meds Allergies & Medications Allergies No Known Allergies Allergy (Verified 12/02/24 14:43) Medication Reconciliation empagliflozin 25 mg tablet (Jardiance) 25 mg PO QDAY 02/17/24 [History Confirmed 12/02/24] blood-glucose meter #1 ea 04/28/24 [Rx Confirmed 12/02/24] lancets 31 gauge #100 ea 04/28/24 [Rx Confirmed 12/02/24] blood-glucose meter (Accu-Chek Guide Glucose Meter) #1 ea 05/04/24 [Rx Confirmed 12/02/24] bupropion HCl 150 mg tablet,12 hr sustained-release 150 mg PO QAM #30 ea 05/25/24 [Rx Confirmed 12/02/24] gabapentin 800 mg tablet 1,600 mg (2 x 800 mg) PO BID #120 tabs 06/24/24 [Rx Confirmed 12/02/24] loperamide 2 mg capsule 2 mg PO Q6H PRN loose stool #30 caps 06/29/24 [Rx Confirmed 12/02/24] lancets (Accu-Chek Softclix Lancets) #200 ea 07/16/24 [Rx Confirmed 12/02/24] insulin NPH isoph U-100 human 100 unit/mL (3 mL) subcutaneous pen (Novolin N FlexPen) 25 unit (0.25 mL) subcut QID #15 mL 08/10/24 [Rx Confirmed 12/02/24] sodium chloride 1,000 mg soluble tablet 1,000 mg PO QDAY PRN electrolyte replenishment 1 month #30 tabs 08/26/24 [Rx Confirmed 12/02/24] rosuvastatin 10 mg tablet 10 mg PO QDAY 1 month #90 tabs 09/02/24 [Rx Confirmed 12/02/24] olanzapine 20 mg tablet 20 mg PO QHS 10/13/24 [History Confirmed 12/02/24] olanzapine 5 mg tablet 5 mg PO QPM 10/13/24 [History Confirmed 12/02/24] simethicone 250 mg capsule (Gas Relief (simethicone)) 250 mg PO QDAY PRN abdominal distention #30 caps 10/13/24 [Rx Confirmed 12/02/24] blood sugar diagnostic (True Metrix Glucose Test Strip) #100 ea 10/14/24 [Rx Confirmed 12/02/24] lisinopril 5 mg tablet 5 mg PO QDAY #30 tabs 10/23/24 [Rx Confirmed 12/02/24] tirzepatide 10 mg/0.5 mL subcutaneous pen injector 10 mg (0.5 mL) subcut QWEEK #2 mL 10/23/24 [Rx Confirmed 12/02/24] fenofibrate 160 mg tablet 160 mg PO QDAY 1 month #90 tabs 12/01/24 [Rx Confirmed 12/02/24] albuterol sulfate 1.25 mg/3 mL solution for nebulization 1.25 mg (3 mL) inhalation QID PRN shortness of breath or wheezing #75 mL 12/02/24 [Rx] atorvastatin 80 mg tablet (Lipitor) 80 mg PO QHS #30 tabs 12/02/24 [Rx] hydrocodone 5 mg-acetaminophen 325 mg tablet 1 tab PO TID PRN pain 10 days #30 tabs 12/02/24 [Rx] azphke-zfmnragf-tbwvgt(pork)24,000-76,000-120,000 unit capsule,del rel (Creon) 1 cap PO QID #120 caps 12/02/24 [Rx] nystatin 100,000 unit/gram topical cream 1 applic topical QDAY #30 grams 12/02/24 [Rx] nystatin 100,000 unit/gram topical powder 1 applic topical QDAY #60 grams 12/02/24 [Rx] omeprazole 40 mg capsule,delayed release 40 mg PO QDAY acid reflux #30 caps 12/02/24 [Rx] MA Intake Visit Data Collection PCP or OBGYN visit in last 3 months: No Smoking Status Smoking Status: Never smoker For Televisit only Telemed Video/Phone Visit: Yes Verbal consent obtained for Telemed visit?: Yes Telemed Video/Phone visit w/Clinical Staff: 21-30 min Immunization / Flu Flu Vaccine in the Last 12 Months: No Flu Vaccine Exclusion Criteria: Already Received Past Medical History Past Medical History CARDIAC: Positive Hypercholesterolemia and Hypertension; Negative Congestive Heart Failure RESPIRATORY: Negative Chronic Obstructive Pulmonary Disease (COPD) GASTROINTESTINAL: Positive Gastroesophageal Reflux Disease GENITOURINARY: Negative Renal Disease ENDOCRINE: Positive Endocrine Disorders and Diabetes Mellitus Type 2; Negative Diabetes Mellitus Type 1 PSYCHO/SOCIAL: Positive Psychiatric Problems, Bipolar Disorder, Attention Deficit Hyperactivity Disorder and Post Traumatic Stress Disorder Surgical History SURGICAL: Positive Abdominal Surgery Social History SMOKING STATUS: Smoking status: Never smoker ALCOHOL: Alcohol Intake: Never Patient Portal Questionaires PHQ-9 PHQ-2 Over the last 2 weeks, how often have you been bothered by any of the following problems? 1. Little interest or pleasure in doing things: not at all PHQ-9 8. Moving or speaking so slowly that other people could have noticed? - Or the opposite - being so fidgety or restless that you have been moving around a lot more than usual: not at all Source: Developed by Drs. Scott Obando, Niya Powell, Christian Love and colleagues, with an educational garry from [employer]. Social History Tobacco History Smoking Status: Never smoker Alcohol History Alcohol Intake: Never Review of Systems Report any current symptoms Only answer those that you have currently: Past Medical History Past Medical History Have you ever been diagnosed with any of the following: Cardiology Problems Hypercholesterolemia: Yes Congestive Heart Failure: No Hypertension: Yes Respiratory Problems Chronic Obstructive Pulmonary Disease (COPD): No Stomache/Intestinal Problems Gastroesophageal Reflux Disease: Yes Genital/Urinary Problems Renal Disease: No Endocrine Problems Diabetes Mellitus Type 1: No Diabetes Mellitus Type 2: Yes Psychologic Problems Bipolar Disorder: Yes Attention Deficit Hyperactivity Disorder: Yes Post Traumatic Stress Disorder: Yes History of Present Illness HPI Narrative Patient is a 59 year old female with a past medical history of hypertension, 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 07/20/2024: Patient seen and examined in clinic, presented for follow-up after pneumonia treatment. Patient completed course of antibiotics, reports sym ptomatic improvement. Denies fever, chills, cough, shortness of breath, does endorse mild sore throat. Lungs clear on examination. Patient also requested refill medications, provided. Patient requesting referrals for machine cloth examiner closer to home, current machine cloth examiner in [place]. Patient requested referral for glazing superintendent and neurologist. 08/10/2024: Patient seen examined in clinic, presenting for routine follow-up. Patient states she recently completed course of levofloxacin for clinically pneumonia and another clinic. Patient requesting refills of multiple medications, has not yet received appointment with Dr. Ingram, has not yet received repeat labs for triglycerides. Refilled fenofibrate, Mounjaro, insulin, rosuvastatin, Plummer, albuterol. Reconciled med list with patient. Prescribed nystatin cream for fungal dermatitis. At this time patient denies fever, cough, nausea, vomiting. 08/26/24: Patient seen via telehealth visit. Reveiwed labs which showed significa nt improvement in hypertriglyceridemia. Will continue current medication. Patient denies abdominal pain, nausea, voming, diarrhea, constipation. 09/03/23 Patient seen via telehealth visit, requesting medication refill. Refilled patients fenofibrate and rosuvastatin. Will follow up at next scheduled visit. 10/13/24 Pt is here for followup; no active complaints, DM is well managed on Mounjaro 7.5 mg, Patient reports she is followed by machine cloth examiner Dr. Allison in [place], reported that she currently takes insulin NPH 25 units 4 times daily, no reported hypoglycemic events. Hba1c in 07/05 was 6.3 . will defer diabetes management to machine cloth examiner as per patient preferance. Refilled lisinopril, requesting refills for Plummer 5mg, 4 times a day. Complaining of pain in both knees, wakes up every morning feeling crippling pain. 11/11/2024 Patient had an appt via telehealth for medication refill. Patient stated that she did not get her prescription of Plummer last time from [facility] which was prescribed on 10/13/2024. She mentioned that she wanted the prescription to go to [facility] and [place] [facility] would not send the prescription over. Patient was unsure if she filled it at [place] or not and was providing confusing history on if she did or did not refill them. [facility] was verified and showed patient did refilled on 10/14/2024 for a total of 120 tablets of Plummer 5. Multiple other addresses also seen in [facility] with the patient's same last name and . Spoke with [place] pharmacy Pharmacist Carlos who stated patient did refill her Plummer and clonazepam. At this time told patient she should still have available and she stated she did have available. Spoke with patient that Plummer dose per day is too high and that will need to see a pain specialist. Patient was reluctant, but stated she would be open to seeing the pain specialist. Also notified the patient if she did not see the pain specialist by next week to call back and will only be giving a 6-7 day supply of Plummer 5mg TID prn. Patient will also be referred to rheumatology. 12/02/24 Telehealth regarding medication refills. Reports of generalized pain which is remains poorly controlled, and currently she has been out of her NORCO and CLONAZEPAM. On the previous visit we discussed referral to rheumatology and pain control and she has appointments coming up next week with both. There has been discrepancies in terms of the medications being sent to the pharmacy. [place] [facility] stated all medications have been forwarded to [facility]. I checked with both pharmacies and they stated they don't have any refills. We reviewed cures and there is no discrepancy or additional prescriber refilling her NORCO. As such we will prescribe short dose of NORCO until she can be seen by rheumatology and pain control. Assessment & Plan Diagnosis / Problem List (1) Fibromyalgia: Status: Chronic Assessment & Plan: As stated in H&P, she is currently pending appointment evaluation next week with both rheumatology and pain management. Will go ahead and prescribe short course NORCO until she can be seen by rheumatology/pain control. Reports her symptoms are poorly controlled without medications. Plan: As above Office Procedures [facility] Level of Care Nursing/Assessment Patient Status: Established Patient Nursing Assessment/Reassessment: Medication Reconciliation and Update PMH in EMR Coordination of Care: Complex Care and Chronic Disease 1-5, Complex Care/Chronic Disease 5 or more and Staff clarify orders Established Patient Charge Established Patient Point Assignment: 85 Telehealth Telemed Phone/Video with patient at home & ,PA,COTTON TIER: Yes
== END 2024-12-02 16:15 | disposition home or self-care (01) ==
LOC: HODAHC 14:42
PROVIDERS: Supervising Provider Internal Medicine
DX: Z76.0 Encounter for issue of repeat prescription (principal); M79.7 Fibromyalgia
CPT/HCPCS: 99212; G0463